=== PATIENT | female | born 1935 | race Caucasian/White ===

== ENCOUNTER 2017-05-09 10:35 | Emergency (ER) | payer MEDICARE, BC ==
[2017-05-09 11:02] VITALS: BP 173/82
--- NOTE | 2017-05-09 11:37 | EDM.PDOC ---
ED HPI GENERAL MEDICAL PROBLEM - General Chief Complaint: ENT Problem Stated Complaint: [facility] Time Seen by Provider: 05/09/17 11:00 Source of Information: Reports: Patient, EMS History Limitations: Reports: No Limitations - History of Present Illness INITIAL COMMENTS - FREE TEXT/NARRATIVE: 81-year-old female who is been struggling with some vertigo and cerumen impaction on the left side. She had an appointment to have her ears cleaned at the clinic this morning but when she woke up she was so dizzy and had pressure in her ear that she called the ambulance to come in. They gave her some Zofran in route she feels much better but still has the pressure. No fevers or chills, no nausea or vomiting, no headache. Onset: Gradual (Has been struggling with symptoms for several weeks) Severity: Mild Associated Symptoms: Reports: Other (Vertigo). Denies: Fever/Chills, Headaches , Loss of Appetite, Weakness - Related Data Allergies Allergy/AdvReac Type Severity Reaction Status Date / Time aluminum hydroxide Allergy Unknown Cannot Verified 05/09/17 10:52 [From Maalox Maximum Remember Strength] amlodipine Allergy Unknown Cannot Verified 05/09/17 10:52 Remember atorvastatin Allergy Unknown Cannot Verified 05/09/17 10:52 Remember azithromycin Allergy Unknown Cannot Verified 05/09/17 10:52 Remember bumetanide Allergy Unknown Cannot Verified 05/09/17 10:52 Remember celecoxib Allergy Unknown Cannot Verified 05/09/17 10:52 Remember cephalexin [Cephalexin] Allergy Unknown Cannot Verified 05/09/17 10:52 Remember chromium Allergy Unknown Cannot Verified 05/09/17 10:52 Remember ciprofloxacin [From Cipro] Allergy Unknown Cannot Verified 05/09/17 10:52 Remember ciprofloxacin HCl Allergy Unknown Cannot Verified 05/09/17 10:52 [From Cipro] Remember codeine Allergy Unknown Cannot Verified 05/09/17 10:52 Remember copper [Copper] Allergy Unknown Cannot Verified 05/09/17 10:52 Remember Corticosteroids Allergy Unknown Cannot Verified 05/09/17 10:52 (Glucocorticoids) Remember dipyridamole Allergy Unknown Cannot Verified 05/09/17 10:52 Remember esomeprazole Allergy Unknown Cannot Verified 05/09/17 10:50 Remember ezetimibe Allergy Unknown Cannot Verified 05/09/17 10:50 Remember fenofibrate nanocrystallized Allergy Unknown Cannot Verified 05/09/17 10:50 [From Tricor] Remember fenofibrate,micronized Allergy Unknown Cannot Verified 05/09/17 10:50 [From Tricor] Remember fexofenadine Allergy Unknown Cannot Verified 05/09/17 10:50 Remember furosemide Allergy Unknown Cannot Verified 05/09/17 10:50 Remember hydrochlorothiazide Allergy Unknown Rash Verified 05/09/17 10:50 lansoprazole [From Prevacid] Allergy Unknown Cannot Verified 05/09/17 10:50 Remember lisinopril Allergy Unknown Cannot Verified 05/09/17 10:50 Remember magnesium hydroxide Allergy Unknown Cannot Verified 05/09/17 10:50 [From Maalox Maximum Remember Strength] neomycin [Neomycin] Allergy Unknown Cannot Verified 05/09/17 10:50 Remember niacin Allergy Unknown Cannot Verified 05/09/17 10:50 Remember nicotine Allergy Unknown Cannot Verified 05/09/17 10:50 Remember omeprazole Allergy Unknown Cannot Verified 05/09/17 10:50 Remember pravastatin Allergy Unknown Cannot Verified 05/09/17 10:50 Remember rosuvastatin calcium Allergy Unknown Cannot Verified 05/09/17 10:50 [From Crestor] Remember simethicone Allergy Unknown Cannot Verified 05/09/17 10:50 [From Maalox Maximum Remember Strength] Sulfa (Sulfonamide Allergy Unknown Cannot Verified 05/09/17 10:50 Antibiotics) Remember tetanus toxoid, adsorbed Allergy Unknown Cannot Verified 05/09/17 10:50 Remember venlafaxine Allergy Unknown Cannot Verified 05/09/17 10:50 Remember carboxymethylcellulose sodium Allergy Cannot Verified 05/09/17 10:50 [From Refresh Tears] Remember cetirizine HCl [From Zyrtec] Allergy Cannot Verified 05/09/17 10:50 Remember colesevelam HCl Allergy Cannot Verified 05/09/17 10:50 [From WelChol] Remember dexamethasone [From TobraDex] Allergy Cannot Verified 05/09/17 10:50 Remember doxycycline Allergy Other Verified 05/09/17 10:50 Influenza Virus Vaccines Allergy Hives Verified 05/09/17 10:50 [id number] Reductase Allergy Cannot Verified 05/09/17 10:50 Inhibitor Remember tobramycin [From TobraDex] Allergy Cannot Verified 05/09/17 10:50 Remember hydromorphone HCl AdvReac Intermediate Nausea and Verified 05/09/17 10:50 [From Dilaudid] Vomiting morphine AdvReac Unknown Nausea and Verified 05/09/17 10:50 Vomiting clindamycin HCl AdvReac Diarrhea Verified 05/09/17 10:50 [From Cleocin] clindamycin palmitate HCl AdvReac Diarrhea Verified 05/09/17 10:50 [From Cleocin] clindamycin phosphate AdvReac Diarrhea Verified 05/09/17 10:50 [From Cleocin] Home Meds: Home Meds Aspirin 81 mg PO DAILY 04/26/13 [History] Clopidogrel Bisulfate [Clopidogrel] 75 mg PO DAILY 04/26/13 [History] Famotidine [Pepcid] 20 mg PO BID 04/26/13 [History] Metoprolol Tartrate [Lopressor] 25 mg PO BID 04/26/13 [History] Nitroglycerin [Nitrostat] 0.4 mg SL ASDIRECTED PRN 04/26/13 [History] Acetaminophen [Tylenol] 325 mg PO Q6HR PRN 10/24/14 [History] Ondansetron HCl [Zofran] 4 mg PO Q8HR PRN 10/24/14 [History] Pnv95/Iron Fum/Folic Acid [ Caplet] 1 each PO DAILY 10/16/15 [History] Meclizine [Antivert] 25 mg PO TID PRN 12/11/15 [History] Cyanocobalamin (Vitamin B-12) [Vitamin B-12] 1,000 mcg PO DAILY 06/28/16 [ History] Metolazone 1.25 mg PO ASDIRECTED PRN 07/25/16 [History] Fluticasone Propionate [Flonase] 2 sprays INH DAILY 12/27/16 [History] tiZANidine [Zanaflex] 4 mg PO BEDTIME PRN 12/27/16 [History] Past Medical History HEENT History: Reports: Cataract, Impaired Vision, Sinusitis Other HEENT History: wear glasses Cardiovascular History: Reports: Blood Clots/VTE/DVT, High Cholesterol, Hypertension, PR, Stents, Other (See Below) Other Cardiovascular History: defib. 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 Musculoskeletal History: Reports: Arthritis, Fracture, Other (See Below) Other Musculoskeletal History: right carpal tunnel Neurological History: Reports: Concussion, CVA, Migraines, TIA Endocrine/Metabolic History: Reports: Obesity/BMI 30+ Hematologic History: Reports: Blood Transfusion(s) - Infectious Disease History Infectious Disease History: Reports: Chicken Pox, Measles, Mumps - Past Surgical History HEENT Surgical History: Reports: Cataract Surgery Cardiovascular Surgical History: Reports: Coronary Artery Stent, Other (See Below) GI Surgical History: Reports: Cholecystectomy, EGD Female Surgical History: Reports: Hysterectomy Social & Family History - Family History Family Medical History: Noncontributory - Tobacco Use Smoking Status *Q: Unknown Ever Smoked Years of Tobacco use: 20 Packs/Tins Daily: 1 Used Tobacco, but Quit: Yes Month Tobacco Last Used: 07/18/2004 Second Hand Smoke Exposure: No - Caffeine Use Caffeine Use: Reports: None - Alcohol Use Days Per Week of Alcohol Use: 0 - Recreational Drug Use Recreational Drug Use: No ED ROS ENT - Review of Systems Review Of Systems: See Below Constitutional: Denies: Fever, Chills HEENT: Reports: Other (Pressure in her left ear, decreased hearing and vertigo) Respiratory: Denies: Shortness of Breath Cardiovascular: Denies: Chest Pain GI/Abdominal: Denies: Abdominal Pain Neurological: Reports: No Symptoms ED EXAM, ENT - Physical Exam Exam: See Below Exam Limited By: No Limitations General Appearance: Alert, No Apparent Distress Eye Exam: Bilateral Eye: Other (EOMs intact, no nystagmus) Ears: Other (The left ear is completely impacted with cerumen, the right canal is clear with a normal eardrum) Head: Atraumatic Respiratory/Chest: No Respiratory Distress, Lungs Clear Cardiovascular: Regular Rate, Rhythm Neurological: Alert, Oriented Skin: Warm, Dry Course - Vital Signs Last Recorded V/S: Last Vital Signs Temp 96.1 F 05/09/17 10:52 Pulse 61 05/09/17 10:52 Resp 15 05/09/17 10:52 BP 173/82 H 05/09/17 10:52 Pulse Ox 96 05/09/17 10:52 - Re-Assessments/Exams Free Text/Narrative Re-Assessment/Exam: 05/09/17 11:36 An attempt was made to clear the cerumen with irrigation without success. F plastic curette was then used to remove the cerumen almost in its entirety. The underlying tympanic membrane was normal, when the ear canal was cleared she felt much better. Departure - Departure Time of Disposition: 11:51 Disposition: Home, Self-Care 01 Condition: Good Clinical Impression: Impacted cerumen of left ear, Vertigo - Discharge Information Instructions: Earwax Buildup Referrals: PCP,None [Primary Care Provider] - Forms: ED Department Discharge Care Plan Goals: Increase activity as tolerated and recheck in 2-3 days if not improved satisfactorily. Return anytime sooner if worsening or concerns.
== END 2017-05-09 11:51 | disposition home or self-care (01) ==
LOC: JP.ED 10:35
DX: H61.22 Impacted cerumen, left ear (principal); R42 Dizziness and giddiness; Z88.8 Allergy status to other drugs, medicaments and biological substances; Z88.2 Allergy status to sulfonamides; Z79.82 Long term (current) use of aspirin
CPT/HCPCS: 69210; 99283-25; 99284-25

== ENCOUNTER 2017-05-10 11:15 | Emergency (ER) | payer MEDICARE, BC ==
--- NOTE | 2017-05-10 12:13 | EDM.PDOC ---
ED HPI GENERAL MEDICAL PROBLEM - General Chief Complaint: Headache Stated Complaint: MIGRAINE Time Seen by Provider: 05/10/17 12:13 Source of Information: Reports: Patient History Limitations: Reports: No Limitations - History of Present Illness INITIAL COMMENTS - FREE TEXT/NARRATIVE: pt was here yesterday and had her left ear irrigated because of a wax impaction . Today about 10 am she developed a rt sided headache. She saw a halo like she usually does with her migraine and she became very lite sensitive. She has a headacche that is at the level of 10. She is nauseated but has not vomited. She does have a previous history of a stroke and 2 tias. Onset: Today, Other ( 10 am. ) Duration: Hour(s): Location: Reports: Head Associated Symptoms: Reports: Headaches, Other ( nausea. ) Right Parietal Headache Pain Score (Numeric/FACES): 10 - Related Data Allergies Allergy/AdvReac Type Severity Reaction Status Date / Time aluminum hydroxide Allergy Unknown Cannot Verified 05/09/17 10:52 [From Maalox Maximum Remember Strength] amlodipine Allergy Unknown Cannot Verified 05/09/17 10:52 Remember atorvastatin Allergy Unknown Cannot Verified 05/09/17 10:52 Remember azithromycin Allergy Unknown Cannot Verified 05/09/17 10:52 Remember bumetanide Allergy Unknown Cannot Verified 05/09/17 10:52 Remember celecoxib Allergy Unknown Cannot Verified 05/09/17 10:52 Remember cephalexin [Cephalexin] Allergy Unknown Cannot Verified 05/09/17 10:52 Remember chromium Allergy Unknown Cannot Verified 05/09/17 10:52 Remember ciprofloxacin [From Cipro] Allergy Unknown Cannot Verified 05/09/17 10:52 Remember ciprofloxacin HCl Allergy Unknown Cannot Verified 05/09/17 10:52 [From Cipro] Remember codeine Allergy Unknown Cannot Verified 05/09/17 10:52 Remember copper [Copper] Allergy Unknown Cannot Verified 05/09/17 10:52 Remember Corticosteroids Allergy Unknown Cannot Verified 05/09/17 10:52 (Glucocorticoids) Remember dipyridamole Allergy Unknown Cannot Verified 05/09/17 10:52 Remember esomeprazole Allergy Unknown Cannot Verified 05/09/17 10:50 Remember ezetimibe Allergy Unknown Cannot Verified 05/09/17 10:50 Remember fenofibrate nanocrystallized Allergy Unknown Cannot Verified 05/09/17 10:50 [From Tricor] Remember fenofibrate,micronized Allergy Unknown Cannot Verified 05/09/17 10:50 [From Tricor] Remember fexofenadine Allergy Unknown Cannot Verified 05/09/17 10:50 Remember furosemide Allergy Unknown Cannot Verified 05/09/17 10:50 Remember hydrochlorothiazide Allergy Unknown Rash Verified 05/09/17 10:50 lansoprazole [From Prevacid] Allergy Unknown Cannot Verified 05/09/17 10:50 Remember lisinopril Allergy Unknown Cannot Verified 05/09/17 10:50 Remember magnesium hydroxide Allergy Unknown Cannot Verified 05/09/17 10:50 [From Maalox Maximum Remember Strength] neomycin [Neomycin] Allergy Unknown Cannot Verified 05/09/17 10:50 Remember niacin Allergy Unknown Cannot Verified 05/09/17 10:50 Remember nicotine Allergy Unknown Cannot Verified 05/09/17 10:50 Remember omeprazole Allergy Unknown Cannot Verified 05/09/17 10:50 Remember pravastatin Allergy Unknown Cannot Verified 05/09/17 10:50 Remember rosuvastatin calcium Allergy Unknown Cannot Verified 05/09/17 10:50 [From Crestor] Remember simethicone Allergy Unknown Cannot Verified 05/09/17 10:50 [From Maalox Maximum Remember Strength] Sulfa (Sulfonamide Allergy Unknown Cannot Verified 05/09/17 10:50 Antibiotics) Remember tetanus toxoid, adsorbed Allergy Unknown Cannot Verified 05/09/17 10:50 Remember venlafaxine Allergy Unknown Cannot Verified 05/09/17 10:50 Remember carboxymethylcellulose sodium Allergy Cannot Verified 05/09/17 10:50 [From Refresh Tears] Remember cetirizine HCl [From Zyrtec] Allergy Cannot Verified 05/09/17 10:50 Remember colesevelam HCl Allergy Cannot Verified 05/09/17 10:50 [From WelChol] Remember dexamethasone [From TobraDex] Allergy Cannot Verified 05/09/17 10:50 Remember doxycycline Allergy Other Verified 05/09/17 10:50 Influenza Virus Vaccines Allergy Hives Verified 05/09/17 10:50 Amyofrb-Tbb-Ggo Reductase Allergy Cannot Verified 05/09/17 10:50 Inhibitor Remember tobramycin [From TobraDex] Allergy Cannot Verified 05/09/17 10:50 Remember hydromorphone HCl AdvReac Intermediate Nausea and Verified 05/09/17 10:50 [From Dilaudid] Vomiting morphine AdvReac Unknown Nausea and Verified 05/09/17 10:50 Vomiting clindamycin HCl AdvReac Diarrhea Verified 05/09/17 10:50 [From Cleocin] clindamycin palmitate HCl AdvReac Diarrhea Verified 05/09/17 10:50 [From Cleocin] clindamycin phosphate AdvReac Diarrhea Verified 05/09/17 10:50 [From Cleocin] Home Meds: Home Meds Aspirin 81 mg PO DAILY 04/26/13 [History] Clopidogrel Bisulfate [Clopidogrel] 75 mg PO DAILY 04/26/13 [History] Famotidine [Pepcid] 20 mg PO BID 04/26/13 [History] Metoprolol Tartrate [Lopressor] 25 mg PO BID 04/26/13 [History] Nitroglycerin [Nitrostat] 0.4 mg SL ASDIRECTED PRN 04/26/13 [History] Acetaminophen [Tylenol] 325 mg PO Q6HR PRN 10/24/14 [History] Ondansetron HCl [Zofran] 4 mg PO Q8HR PRN 10/24/14 [History] Pnv95/Iron Fum/Folic Acid [ Caplet] 1 each PO DAILY 10/16/15 [History] Meclizine [Antivert] 25 mg PO TID PRN 12/11/15 [History] Cyanocobalamin (Vitamin B-12) [Vitamin B-12] 1,000 mcg PO DAILY 06/28/16 [ History] Metolazone 1.25 mg PO ASDIRECTED PRN 07/25/16 [History] Fluticasone Propionate [Flonase] 2 sprays INH DAILY 12/27/16 [History] tiZANidine [Zanaflex] 4 mg PO BEDTIME PRN 12/27/16 [History] Past Medical History HEENT History: Reports: Cataract, Impaired Vision, Sinusitis Other HEENT History: wear glasses Cardiovascular History: Reports: Blood Clots/VTE/DVT, High Cholesterol, Hypertension, [place], Stents, Other (See Below) Other Cardiovascular History: defib. 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: , Prolapsed Uterus Musculoskeletal History: Reports: Arthritis, Fracture, Other (See Below) Other Musculoskeletal History: right carpal tunnel Neurological History: Reports: Concussion, CVA, Migraines, TIA Endocrine/Metabolic History: Reports: Obesity/BMI 30+ Hematologic History: Reports: Blood Transfusion(s) - Infectious Disease History Infectious Disease History: Reports: Chicken Pox, Measles, Mumps - Past Surgical History HEENT Surgical History: Reports: Cataract Surgery Cardiovascular Surgical History: Reports: Coronary Artery Stent, Other (See Below) GI Surgical History: Reports: Cholecystectomy, EGD Female Surgical History: Reports: Hysterectomy Social & Family History - Family History Family Medical History: Noncontributory - Tobacco Use Smoking Status *Q: Former Smoker Years of Tobacco use: 20 Packs/Tins Daily: 1 Used Tobacco, but Quit: Yes Month Tobacco Last Used: 2004 Second Hand Smoke Exposure: No - Caffeine Use Caffeine Use: Reports: Coffee, Soda - Alcohol Use Days Per Week of Alcohol Use: 0 - Recreational Drug Use Recreational Drug Use: No ED ROS GENERAL - Review of Systems Review Of Systems: See Below Constitutional: Reports: No Symptoms HEENT: Reports: No Symptoms Respiratory: Reports: No Symptoms Cardiovascular: Reports: No Symptoms Endocrine: Reports: No Symptoms GI/Abdominal: Reports: Nausea : Reports: No Symptoms Musculoskeletal: Reports: Other ( muscles feel tight on the rt facial area. ) Skin: Reports: No Symptoms Neurological: Reports: Other ( rt sided headache and nausea. ) Psychiatric: Reports: Anxiety - Physical Exam Exam: See Below Text/Narrative:: pt arrived with a headache on the r rt side. Exam Limited By: No Limitations General Appearance: Alert, Anxious, Moderate Distress, Other (pupils equal and reactive) Ears: Normal TMs Nose: Normal Inspection Throat/Mouth: Normal Inspection Head Exam: Atraumatic, Other ( severe pain on the rt side of her head. ) Neck: Normal Inspection Respiratory/Chest: No Respiratory Distress Cardiovascular: Regular Rate, Rhythm GI/Abdominal: Soft, Non-Tender, No Abnormal Bruit (Female) Exam: Deferred Rectal (Female) Exam: Deferred Back Exam: CVA Tenderness (L) Extremities: Normal Inspection Psychiatric: Anxious Course - Vital Signs Last Recorded V/S: Last Vital Signs Temp 35.5 C 05/10/17 11:40 Pulse 67 05/10/17 13:31 Resp 16 05/10/17 11:40 BP 189/96 H 05/10/17 13:31 Pulse Ox 95 10/24/17 11:40 - Orders/Labs/Meds Orders: Active Orders 24 hr Category Date Time Status Sodium Chloride 0.9% [Normal Saline] 1,000 ml Med 05/10/17 12:15 Active IV ASDIRECTED Medication Orders Sodium Chloride (Normal Saline) 1,000 mls @ 400 mls/hr IV ASDIRECTED GUILLE Last Admin: 05/10/17 13:27 Dose: 400 mls/hr Labs: Laboratory Tests 05/10/17 05/10/17 05/10/17 Range/Units 12:19 12:19 12:36 WBC 5.2 (4.5-11.0) K/uL RBC 4.46 (3.30-5.50) M/uL Hgb 13.4 (12.0-15.0) g/dL Hct 41.6 (36.0-48.0) % MCV 93 (80-98) fL MCH 30 (27-31) pg MCHC 32 (32-36) % Plt Count 265 (150-400) K/uL Neut % (Auto) 67 H (36-66) % Lymph % (Auto) 19 L (24-44) % [place] % (Auto) 13 H (2-6) % Eos % (Auto) 2 (2-4) % Baso % (Auto) 0 (0-1) % Sodium 141 (140-148) mmol/L Potassium 4.1 (3.6-5.2) mmol/L Chloride 108 (100-108) mmol/L Carbon Dioxide 28 (21-32) mmol/L Anion Gap 5.4 (5.0-14.0) mmol/L BUN 14 (7-18) mg/dL Creatinine 0.8 (0.6-1.0) mg/dL Est Cr Clr Drug Dosing 42.14 mL/min Estimated GFR (MDRD) > 60 (>60) Glucose 99 (74-106) mg/dL Calcium 9.1 (8.5-10.1) mg/dL Total Bilirubin 0.5 (0.2-1.0) mg/dL AST 21 (15-37) U/L ALT 18 (12-78) U/L Alkaline Phosphatase 81 (46-116) U/L Total Protein 6.2 L (6.4-8.2) g/dL Albumin 3.0 L (3.4-5.0) g/dL Globulin 3.2 (2.3-3.5) g/dL Albumin/Globulin Ratio 0.9 L (1.2-2.2) Urine Color Yellow Urine Appearance Clear Urine pH 6.0 (4.5-8.0) Ur Specific [place] 1.015 (1.008-1.030) Urine Protein Negative (NEGATIVE) mg/dL Urine Glucose (UA) Normal (NEGATIVE) mg/dL Urine Ketones Negative (NEGATIVE) mg/dL Urine Occult Blood Negative (NEGATIVE) Urine Nitrite Negative (NEGATIVE) Urine Bilirubin Negative (NEGATIVE) Urine Urobilinogen 1 (NORMAL) mg/dL Ur Leukocyte Esterase Negative (NEGATIVE) Urine RBC 0-5 (0-5) Urine WBC 0-5 (0-5) Ur Epithelial Cells Few Amorphous Sediment Not seen Urine Bacteria Few Urine Mucus Few Meds: Medications Generic Name Dose Route Start Last Admin Trade Name Freq PRN Reason Stop Dose Admin Sodium Chloride 1,000 mls @ 400 mls/hr 05/10/17 12:15 05/10/17 13:27 Normal Saline IV 400 mls/hr ASDIRECTED GUILLE Administration Discontinued Medications Generic Name Dose Route Start Last Admin Trade Name Freq PRN Reason Stop Dose Admin Acetaminophen 650 mg 05/10/17 13:58 Tylenol PO 05/10/17 13:59 NOW ONE Diphenhydramine HCl 25 mg 05/10/17 12:17 05/10/17 13:19 Benadryl IVPUSH 05/10/17 12:18 25 mg ONETIME ONE Administration Ketorolac Tromethamine 30 mg 05/10/17 12:15 05/10/17 13:21 Toradol IVPUSH 05/10/17 12:16 30 mg ONETIME ONE Administration Ondansetron HCl 4 mg 05/10/17 12:17 05/10/17 13:20 Zofran IVPUSH 05/10/17 12:18 4 mg ONETIME ONE Administration - Re-Assessments/Exams Free Text/Narrative Re-Assessment/Exam: 05/10/17 14:09 pt had an iv started, torodol 30mg iv, zoforan 4mg and benadryl 25 mg. She had a cat scan of the head which was neg for acute findings. Her lab work was normal. She was also given tylenol 650. Departure - Departure Time of Disposition: 14:11 Disposition: Home, Self-Care 01 Condition: Fair Clinical Impression: Migraine headache - Discharge Information Referrals: Edvin Lay MD [Primary Care Provider] - Forms: ED Department Discharge Care Plan Goals: push fluids, rest, tylenol for pain. - My Orders Last 24 Hours: My Active Orders 05/10/17 12:15 Sodium Chloride 0.9% [Normal Saline] 1,000 ml IV ASDIRECTED - Assessment/Plan Last 24 Hours: My Active Orders 05/10/17 12:15 Sodium Chloride 0.9% [Normal Saline] 1,000 ml IV ASDIRECTED
[2017-05-10] MEDS ORDERED: Ketorolac 30 MG/ML SDV IVPUSH ONE (12:15)
[2017-05-10] MEDS ORDERED: Sodium Chloride 0.9% 1,000 ML IV SCH (12:15)
[2017-05-10] MEDS ORDERED: Ondansetron 4 MG/2 ML SDV IVPUSH ONE (12:17)
[2017-05-10] MEDS ORDERED: diphenhydrAMINE 50 MG/ML SDV IVPUSH ONE (12:17)
--- NOTE | 2017-05-10 13:06 | CT ---
Head wo Cont INDICATION: Right-sided headache COMPARISON: CT 11/06/2014. Total DLP 681. FINDINGS: No acute intracranial hemorrhage, mass, or edema. Generalized cerebral and cerebellar volum e loss. Tiny benign lipomas adjacent to the falx are of no clinical significance. Remainder unremarkable. IMPRESSION: No acute intracranial abnormality.
[2017-05-10 13:32] VITALS: BP 189/96
[2017-05-10] MEDS ORDERED: Acetaminophen 325 MG Tab PO ONE (13:58)
== END 2017-05-10 16:10 | disposition home or self-care (01) ==
LOC: JP.ED 11:15
DX: G43.909 Migraine, unspecified, not intractable, without status migrainosus (principal); I10 Essential (primary) hypertension; E78.00 Pure hypercholesterolemia, unspecified; Z87.891 Personal history of nicotine dependence; Z79.899 Other long term (current) drug therapy; Z79.82 Long term (current) use of aspirin; Z88.8 Allergy status to other drugs, medicaments and biological substances; Z88.1 Allergy status to other antibiotic agents; Z88.6 Allergy status to analgesic agent; Z88.5 Allergy status to narcotic agent
CPT/HCPCS: 36415; 70450; 80053; 81001; 85025; 96361; 96374; 96375; 99284; A9270; J1200; J1885; J2405; J7040; 99283

== ENCOUNTER 2017-08-04 08:44 | Emergency (ER) | payer MEDICARE, BC ==
--- NOTE | 2017-08-04 09:57 | CR ---
Chest 1V Frontal FINDINGS: There is a cardiac pacemaker in place with 2 intact leads. The heart and vascular structure s are normal in appearance. No infiltrates or effusions are demonstrated. There is mild right basilar scarring. The skeletal structures are unremarkable. IMPRESSION: 1. No acute findings.
[2017-08-04 10:03] VITALS: BP 157/89
--- NOTE | 2017-08-04 10:05 | EDM.PDOC ---
ED HPI GENERAL MEDICAL PROBLEM - General Chief Complaint: Chest Pain Stated Complaint: [facility] Time Seen by Provider: 08/04/17 09:20 Source of Information: Reports: Patient, EMS History Limitations: Reports: No Limitations - History of Present Illness INITIAL COMMENTS - FREE TEXT/NARRATIVE: 81-year-old female presents by ambulance with chest pain for the last 24 hours. She had a cough with some mild sputum production 3 or 4 days ago, no fever or chills but yesterday started developing some moderate shortness of breath especially with activity and some upper localized chest pain. The cough seems to have improved. She did not use any of her nitroglycerin but took some extra aspirin this morning. She then called the ambulance when the pain wasn't improving. She has no nausea or vomiting, diaphoresis, radiation of the pain or trauma. Onset: Sudden (Pain started rather suddenly 24 hours ago) Location: Reports: Chest (Upper substernal chest discomfort) Severity: Moderate Chest Pain Score (Numeric/FACES): 10 - Related Data Allergies Allergy/AdvReac Type Severity Reaction Status Date / Time aluminum hydroxide Allergy Unknown Cannot Verified 05/09/17 10:52 [From Maalox Maximum Remember Strength] amlodipine Allergy Unknown Cannot Verified 05/09/17 10:52 Remember atorvastatin Allergy Unknown Cannot Verified 05/09/17 10:52 Remember azithromycin Allergy Unknown Cannot Verified 05/09/17 10:52 Remember bumetanide Allergy Unknown Cannot Verified 05/09/17 10:52 Remember celecoxib Allergy Unknown Cannot Verified 05/09/17 10:52 Remember cephalexin [Cephalexin] Allergy Unknown Cannot Verified 05/09/17 10:52 Remember chromium Allergy Unknown Cannot Verified 05/09/17 10:52 Remember ciprofloxacin [From Cipro] Allergy Unknown Cannot Verified 05/09/17 10:52 Remember ciprofloxacin HCl Allergy Unknown Cannot Verified 05/09/17 10:52 [From Cipro] Remember codeine Allergy Unknown Cannot Verified 05/09/17 10:52 Remember copper [Copper] Allergy Unknown Cannot Verified 05/09/17 10:52 Remember Corticosteroids Allergy Unknown Cannot Verified 05/09/17 10:52 (Glucocorticoids) Remember dipyridamole Allergy Unknown Cannot Verified 05/09/17 10:52 Remember esomeprazole Allergy Unknown Cannot Verified 05/09/17 10:50 Remember ezetimibe Allergy Unknown Cannot Verified 05/09/17 10:50 Remember fenofibrate nanocrystallized Allergy Unknown Cannot Verified 05/09/17 10:50 [From Tricor] Remember fenofibrate,micronized Allergy Unknown Cannot Verified 05/09/17 10:50 [From Tricor] Remember fexofenadine Allergy Unknown Cannot Verified 05/09/17 10:50 Remember furosemide Allergy Unknown Cannot Verified 05/09/17 10:50 Remember hydrochlorothiazide Allergy Unknown Rash Verified 05/09/17 10:50 lansoprazole [From Prevacid] Allergy Unknown Cannot Verified 05/09/17 10:50 Remember lisinopril Allergy Unknown Cannot Verified 05/09/17 10:50 Remember magnesium hydroxide Allergy Unknown Cannot Verified 05/09/17 10:50 [From Maalox Maximum Remember Strength] neomycin [Neomycin] Allergy Unknown Cannot Verified 05/09/17 10:50 Remember niacin Allergy Unknown Cannot Verified 05/09/17 10:50 Remember nicotine Allergy Unknown Cannot Verified 05/09/17 10:50 Remember omeprazole Allergy Unknown Cannot Verified 05/09/17 10:50 Remember pravastatin Allergy Unknown Cannot Verified 05/09/17 10:50 Remember rosuvastatin calcium Allergy Unknown Cannot Verified 05/09/17 10:50 [From Crestor] Remember simethicone Allergy Unknown Cannot Verified 05/09/17 10:50 [From Maalox Maximum Remember Strength] Sulfa (Sulfonamide Allergy Unknown Cannot Verified 05/09/17 10:50 Antibiotics) Remember tetanus toxoid, adsorbed Allergy Unknown Cannot Verified 05/09/17 10:50 Remember venlafaxine Allergy Unknown Cannot Verified 05/09/17 10:50 Remember carboxymethylcellulose sodium Allergy Cannot Verified 05/09/17 10:50 [From Refresh Tears] Remember cetirizine HCl [From Zyrtec] Allergy Cannot Verified 05/09/17 10:50 Remember colesevelam HCl Allergy Cannot Verified 05/09/17 10:50 [From WelChol] Remember dexamethasone [From TobraDex] Allergy Cannot Verified 05/09/17 10:50 Remember doxycycline Allergy Other Verified 05/09/17 10:50 Influenza Virus Vaccines Allergy Hives Verified 05/09/17 10:50 [id number]-Tqh Reductase Allergy Cannot Verified 05/09/17 10:50 Inhibitor Remember tobramycin [From TobraDex] Allergy Cannot Verified 05/09/17 10:50 Remember hydromorphone HCl AdvReac Intermediate Nausea and Verified 05/09/17 10:50 [From Dilaudid] Vomiting morphine AdvReac Unknown Nausea and Verified 05/09/17 10:50 Vomiting clindamycin HCl AdvReac Diarrhea Verified 05/09/17 10:50 [From Cleocin] clindamycin palmitate HCl AdvReac Diarrhea Verified 05/09/17 10:50 [From Cleocin] clindamycin phosphate AdvReac Diarrhea Verified 05/09/17 10:50 [From Cleocin] Home Meds: Home Meds Aspirin 81 mg PO DAILY 04/26/13 [History] Clopidogrel Bisulfate [Clopidogrel] 75 mg PO DAILY 04/26/13 [History] Famotidine [Pepcid] 20 mg PO BID 04/26/13 [History] Metoprolol Tartrate [Lopressor] 25 mg PO BID 04/26/13 [History] Nitroglycerin [Nitrostat] 0.4 mg SL ASDIRECTED PRN 04/26/13 [History] Acetaminophen [Tylenol] 325 mg PO Q6HR PRN 10/24/14 [History] Ondansetron HCl [Zofran] 4 mg PO Q8HR PRN 10/24/14 [History] Pnv95/Iron Fum/Folic Acid [ Caplet] 1 each PO DAILY 10/16/15 [History] Meclizine [Antivert] 25 mg PO TID PRN 12/11/15 [History] Cyanocobalamin (Vitamin B-12) [Vitamin B-12] 1,000 mcg PO DAILY 06/28/16 [ History] Metolazone 1.25 mg PO ASDIRECTED PRN 07/25/16 [History] Fluticasone Propionate [Flonase] 2 sprays INH DAILY 12/27/16 [History] tiZANidine [Zanaflex] 4 mg PO BEDTIME PRN 12/27/16 [History] Past Medical History HEENT History: Reports: Cataract, Impaired Vision, Sinusitis Other HEENT History: wear glasses Cardiovascular History: Reports: Blood Clots/VTE/DVT, High Cholesterol, Hypertension, [place], Stents, Other (See Below) Other Cardiovascular History: defib. 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: , Prolapsed Uterus Musculoskeletal History: Reports: Arthritis, Fracture, Other (See Below) Other Musculoskeletal History: right carpal tunnel Neurological History: Reports: Concussion, CVA, Migraines, TIA Endocrine/Metabolic History: Reports: Obesity/BMI 30+ Hematologic History: Reports: Blood Transfusion(s) - Infectious Disease History Infectious Disease History: Reports: Chicken Pox, Measles, Mumps - Past Surgical History HEENT Surgical History: Reports: Cataract Surgery Cardiovascular Surgical History: Reports: Coronary Artery Stent, Other (See Below) GI Surgical History: Reports: Cholecystectomy, EGD Female Surgical History: Reports: Hysterectomy Social & Family History - Family History Family Medical History: Noncontributory - Tobacco Use Smoking Status *Q: Never Smoker Years of Tobacco use: 20 Packs/Tins Daily: 1 Used Tobacco, but Quit: Yes Month Tobacco Last Used: 2004 Second Hand Smoke Exposure: No - Caffeine Use Caffeine Use: Reports: Coffee, Soda - Alcohol Use Days Per Week of Alcohol Use: 0 - Recreational Drug Use Recreational Drug Use: No ED ROS GENERAL - Review of Systems Review Of Systems: See Below Constitutional: Denies: Fever, Chills HEENT: Denies: Throat Pain Respiratory: Reports: Shortness of Breath, Cough, Sputum Cardiovascular: Reports: Chest Pain, Dyspnea on Exertion. Denies: Palpitations GI/Abdominal: Reports: No Symptoms : Reports: No Symptoms Skin: Reports: No Symptoms Neurological: Denies: Headache ED EXAM, GENERAL - Physical Exam Exam: See Below Exam Limited By: No Limitations General Appearance: Alert, No Apparent Distress Eye Exam: Bilateral Eye: Normal Inspection Neck: Normal Inspection, Supple Respiratory/Chest: No Respiratory Distress, Lungs Clear, Chest Non-Tender Cardiovascular: Regular Rate, Rhythm GI/Abdominal: Soft, Non-Tender Extremities: Normal Inspection. 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, very consistent with past EKGs Course - Vital Signs Last Recorded V/S: Last Vital Signs Temp 95.8 F 08/04/17 09:07 Pulse 61 08/04/17 09:45 Resp 15 08/04/17 09:45 BP 157/89 H 01/18/18 09:45 Pulse Ox 95 08/04/17 09:45 - Orders/Labs/Meds Orders: Active Orders 24 hr Category Date Time Status EKG Documentation Completion [RC] ASDIRECTED Care 08/04/17 09:23 Active EKG 12 Lead [EK] Routine Ther 08/04/17 09:23 Ordered Labs: Laboratory Tests 08/04/17 08/04/17 Range/Units 09:00 09:00 WBC 4.8 (4.5-11.0) K/uL RBC 4.67 (3.30-5.50) M/uL Hgb 13.9 (12.0-15.0) g/dL Hct 42.2 (36.0-48.0) % MCV 90 (80-98) fL MCH 30 (27-31) pg MCHC 33 (32-36) % Plt Count 286 (150-400) K/uL Neut % (Auto) 61 (36-66) % Lymph % (Auto) 22 L (24-44) % [place] % (Auto) 13 H (2-6) % Eos % (Auto) 3 (2-4) % Baso % (Auto) 0 (0-1) % Sodium 144 (140-148) mmol/L Potassium 4.1 (3.6-5.2) mmol/L Chloride 109 H (100-108) mmol/L Carbon Dioxide 26 (21-32) mmol/L Anion Gap 13.1 (5.0-14.0) mmol/L BUN 20 H (7-18) mg/dL Creatinine 0.7 (0.6-1.0) mg/dL Est Cr Clr Drug Dosing 48.16 mL/min Estimated GFR (MDRD) > 60 (>60) Glucose 99 (74-106) mg/dL Calcium 8.9 (8.5-10.1) mg/dL Troponin I < 0.017 (0.000-0.056) ng/mL Meds: Medications Discontinued Medications Generic Name Dose Route Start Last Admin Trade Name Freq PRN Reason Stop Dose Admin Azithromycin 500 mg 08/04/17 10:20 08/04/17 10:24 Zithromax PO 08/04/17 10:21 500 mg ONETIME ONE Administration - Re-Assessments/Exams Free Text/Narrative Re-Assessment/Exam: 08/04/17 10:03 EKG was reassuring. Patient looked entirely comfortable despite her continued pain complaint. She presented very similarly to her many chest pain visits in the past. Her O2 saturations were 98-99% on room air, respiratory rate normal, blood pressure normal, and research nutritionist normal. She was afebrile. CBC and BMP were troponin were drawn, troponin was 0 and the rest of the labs were normal. A 1 view chest x-ray was completely normal. I think this patient may have a small amount of bronchitis and pleurisy that is making her anxious and exacerbating the chest discomfort. She agreed to trying a course of Zithromax and giving it just a few days, and will return if worsening. Departure - Departure Time of Disposition: 10:36 Disposition: Home, Self-Care 01 Condition: Good Clinical Impression: Bronchitis, Pleurisy - Discharge Information Instructions: Nonspecific Chest Pain, [id number] Referrals: PCP,None [Primary Care Provider] - Forms: ED Department Discharge Care Plan Goals: Take antibiotic as prescribed, and extra dose of aspirin 2 or 3 times a day may be beneficial. Recheck in 2-3 days if not improving satisfactorily or return sooner if worsening. - My Orders Last 24 Hours: My Active Orders 08/04/17 09:23 EKG Documentation Completion [RC] ASDIRECTED EKG 12 Lead [EK] Routine - Assessment/Plan Last 24 Hours: My Active Orders 08/04/17 09:23 EKG Documentation Completion [RC] ASDIRECTED EKG 12 Lead [EK] Routine
[2017-08-04] MEDS ORDERED: Azithromycin 250 MG Tab PO ONE (10:20)
== END 2017-08-04 10:36 | disposition home or self-care (01) ==
LOC: JP.ED 08:44
DX: J40 Bronchitis, not specified as acute or chronic (principal); R09.1 Pleurisy; Z88.8 Allergy status to other drugs, medicaments and biological substances; Z88.1 Allergy status to other antibiotic agents; Z91.09 Other allergy status, other than to drugs and biological substances; Z88.2 Allergy status to sulfonamides; Z88.5 Allergy status to narcotic agent; Z88.7 Allergy status to serum and vaccine; Z79.82 Long term (current) use of aspirin; Z79.899 Other long term (current) drug therapy
CPT/HCPCS: 36415; 71045; 80048; 84484; 85025; 93005; 99285; A9270; 93010; 99284

== ENCOUNTER 2017-09-29 15:42 | Emergency (ER) | payer MEDICARE, BC ==
[2017-09-29] MEDS ORDERED: Meclizine 25 MG Tab PO ONE (16:44)
--- NOTE | 2017-09-29 16:49 | EDM.PDOC ---
ED HPI GENERAL MEDICAL PROBLEM - General Chief Complaint: Respiratory Problem Stated Complaint: ILLNESS Time Seen by Provider: 09/29/17 16:24 Source of Information: Reports: Patient, RN Notes Reviewed History Limitations: Reports: No Limitations - History of Present Illness INITIAL COMMENTS - FREE TEXT/NARRATIVE: 82-year-old female presents emergency department day complaint of dizziness and headache, she has had dizziness and CVA in the past this particular event started at noon today or approximately 5 hours prior complained of difficulty hearing with dizziness, this has progressed and now over the last hour she's developed a headache predominantly on the left side posterior aspect - Related Data Allergies Allergy/AdvReac Type Severity Reaction Status Date / Time aluminum hydroxide Allergy Unknown Cannot Verified 05/09/17 10:52 [From Maalox Maximum Remember Strength] amlodipine Allergy Unknown Cannot Verified 05/09/17 10:52 Remember atorvastatin Allergy Unknown Cannot Verified 05/09/17 10:52 Remember azithromycin Allergy Unknown Cannot Verified 05/09/17 10:52 Remember bumetanide Allergy Unknown Cannot Verified 05/09/17 10:52 Remember celecoxib Allergy Unknown Cannot Verified 05/09/17 10:52 Remember cephalexin [Cephalexin] Allergy Unknown Cannot Verified 05/09/17 10:52 Remember chromium Allergy Unknown Cannot Verified 05/09/17 10:52 Remember ciprofloxacin [From Cipro] Allergy Unknown Cannot Verified 05/09/17 10:52 Remember ciprofloxacin HCl Allergy Unknown Cannot Verified 05/09/17 10:52 [From Cipro] Remember codeine Allergy Unknown Cannot Verified 05/09/17 10:52 Remember copper [Copper] Allergy Unknown Cannot Verified 05/09/17 10:52 Remember Corticosteroids Allergy Unknown Cannot Verified 05/09/17 10:52 (Glucocorticoids) Remember dipyridamole Allergy Unknown Cannot Verified 05/09/17 10:52 Remember esomeprazole Allergy Unknown Cannot Verified 05/09/17 10:50 Remember ezetimibe Allergy Unknown Cannot Verified 05/09/17 10:50 Remember fenofibrate nanocrystallized Allergy Unknown Cannot Verified 05/09/17 10:50 [From Tricor] Remember fenofibrate,micronized Allergy Unknown Cannot Verified 05/09/17 10:50 [From Tricor] Remember fexofenadine Allergy Unknown Cannot Verified 05/09/17 10:50 Remember furosemide Allergy Unknown Cannot Verified 05/09/17 10:50 Remember hydrochlorothiazide Allergy Unknown Rash Verified 05/09/17 10:50 lansoprazole [From Prevacid] Allergy Unknown Cannot Verified 05/09/17 10:50 Remember lisinopril Allergy Unknown Cannot Verified 05/09/17 10:50 Remember magnesium hydroxide Allergy Unknown Cannot Verified 05/09/17 10:50 [From Maalox Maximum Remember Strength] neomycin [Neomycin] Allergy Unknown Cannot Verified 05/09/17 10:50 Remember niacin Allergy Unknown Cannot Verified 05/09/17 10:50 Remember nicotine Allergy Unknown Cannot Verified 05/09/17 10:50 Remember omeprazole Allergy Unknown Cannot Verified 05/09/17 10:50 Remember pravastatin Allergy Unknown Cannot Verified 05/09/17 10:50 Remember rosuvastatin calcium Allergy Unknown Cannot Verified 05/09/17 10:50 [From Crestor] Remember simethicone Allergy Unknown Cannot Verified 05/09/17 10:50 [From Maalox Maximum Remember Strength] Sulfa (Sulfonamide Allergy Unknown Cannot Verified 05/09/17 10:50 Antibiotics) Remember tetanus toxoid, adsorbed Allergy Unknown Cannot Verified 05/09/17 10:50 Remember venlafaxine Allergy Unknown Cannot Verified 05/09/17 10:50 Remember amoxicillin [From Augmentin] Allergy Rash Verified 09/29/17 16:03 carboxymethylcellulose sodium Allergy Cannot Verified 05/09/17 10:50 [From Refresh Tears] Remember cetirizine HCl [From Zyrtec] Allergy Cannot Verified 05/09/17 10:50 Remember clavulanic acid Allergy Rash Verified 09/29/17 16:03 [From Augmentin] colesevelam HCl Allergy Cannot Verified 05/09/17 10:50 [From WelChol] Remember dexamethasone [From TobraDex] Allergy Cannot Verified 05/09/17 10:50 Remember doxycycline Allergy Other Verified 05/09/17 10:50 Influenza Virus Vaccines Allergy Hives Verified 05/09/17 10:50 [id number] Reductase Allergy Cannot Verified 05/09/17 10:50 Inhibitor Remember tobramycin [From TobraDex] Allergy Cannot Verified 05/09/17 10:50 Remember hydromorphone HCl AdvReac Intermediate Nausea and Verified 05/09/17 10:50 [From Dilaudid] Vomiting morphine AdvReac Unknown Nausea and Verified 05/09/17 10:50 Vomiting clindamycin HCl AdvReac Diarrhea Verified 05/09/17 10:50 [From Cleocin] clindamycin palmitate HCl AdvReac Diarrhea Verified 05/09/17 10:50 [From Cleocin] clindamycin phosphate AdvReac Diarrhea Verified 05/09/17 10:50 [From Cleocin] Home Meds: Home Meds Aspirin 81 mg PO DAILY 04/26/13 [History] Clopidogrel Bisulfate [Clopidogrel] 75 mg PO DAILY 04/26/13 [History] Famotidine [Pepcid] 20 mg PO BID 04/26/13 [History] Metoprolol Tartrate [Lopressor] 25 mg PO BID 04/26/13 [History] Nitroglycerin [Nitrostat] 0.4 mg SL ASDIRECTED PRN 04/26/13 [History] Acetaminophen [Tylenol] 325 mg PO Q6HR PRN 10/24/14 [History] Ondansetron HCl [Zofran] 4 mg PO Q8HR PRN 10/24/14 [History] Pnv95/Iron Fum/Folic Acid [ Caplet] 1 each PO DAILY 10/16/15 [History] Meclizine [Antivert] 25 mg PO TID PRN 12/11/15 [History] Cyanocobalamin (Vitamin B-12) [Vitamin B-12] 1,000 mcg PO DAILY 06/28/16 [ History] Metolazone 1.25 mg PO ASDIRECTED PRN 07/25/16 [History] Fluticasone Propionate [Flonase] 2 sprays INH DAILY 12/27/16 [History] tiZANidine [Zanaflex] 4 mg PO BEDTIME PRN 12/27/16 [History] Past Medical History HEENT History: Reports: Cataract, Impaired Vision, Sinusitis Other HEENT History: wear glasses Cardiovascular History: Reports: Automatic Implantable Cardioverter Defibrillators, Blood Clots/VTE/DVT, High Cholesterol, Hypertension, [place], Stents , Other (See Below) Other Cardiovascular History: defib. 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: , Prolapsed Uterus Musculoskeletal History: Reports: Arthritis, Fracture, Other (See Below) Other Musculoskeletal History: right carpal tunnel Neurological History: Reports: Concussion, CVA, Migraines, TIA Endocrine/Metabolic History: Reports: Obesity/BMI 30+ Hematologic History: Reports: Blood Transfusion(s) - Infectious Disease History Infectious Disease History: Reports: Chicken Pox, Measles - Past Surgical History HEENT Surgical History: Reports: Cataract Surgery Cardiovascular Surgical History: Reports: Coronary Artery Stent GI Surgical History: Reports: Cholecystectomy, EGD Female Surgical History: Reports: Hysterectomy Social & Family History - Family History Family Medical History: Noncontributory - Tobacco Use Smoking Status *Q: Never Smoker Years of Tobacco use: 20 Packs/Tins Daily: 1 Used Tobacco, but Quit: Yes Month/Year Tobacco Last Used: 2004 Second Hand Smoke Exposure: No - Caffeine Use Caffeine Use: Reports: Coffee, Soda - Alcohol Use Days Per Week of Alcohol Use: 0 - Recreational Drug Use Recreational Drug Use: No ED ROS GENERAL - Review of Systems Review Of Systems: See Below Constitutional: Reports: No Symptoms HEENT: Reports: No Symptoms Respiratory: Reports: No Symptoms Cardiovascular: Reports: No Symptoms GI/Abdominal: Reports: Nausea, Vomiting Musculoskeletal: Reports: No Symptoms Skin: Reports: No Symptoms Neurological: Reports: Dizziness, Headache ED EXAM, DIZZINESS - Physical Exam Exam: See Below Text/Narrative:: General: Female, moderate discomfort secondary to dizziness, alert and oriented x3 HEENT: head is atraumatic normocephalic, eyes pupils equal round reactive to light, extraocular eye movements intact,, sclera clear no conjunctivitis appreciated. Ears tympanic membranes clear and mustafa landmarks and light reflex are present bilaterally canals are clear. Nose no septal deviation, nares are clear, no blood present. Mouth mucosa is moist and pink no erythema or exudate noted in soft palate, tongue is midline uvula is midline, dentition is intact. Neck: Supple no thyromegaly no tracheal deviation. Nodes: Cervical nodes subclavicular nodes nontender no palpable lymphadenopathy noted. Lungs: clear to auscultation bilaterally with symmetrical respirations, no adventitious noise appreciated. CV: Regular rate and rhythm S1 and S2 appreciated no murmurs rubs or gallops noted. Abdomen: Soft, nontender, no palpable masses or organomegaly appreciated, no distention no guarding bowel sounds are present, [scars ]. Neuro: Cranial nerves II through XII grossly intact, Hints exam cerebral beating nystagmus can be appreciated on test of skew, cover uncover test reveals no deviations, she will not tolerate any head movement to complete the remainder of the exam Skin: Warm and dry, intact Extremities: No lower extremity edema appreciated, Course - Vital Signs Last Recorded V/S: Last Vital Signs Temp 96.0 F 09/29/17 15:43 Pulse 69 09/29/17 17:30 Resp 20 09/29/17 15:43 BP 152/74 H 09/29/17 17:30 Pulse Ox 98 09/29/17 17:30 - Orders/Labs/Meds Orders: Active Orders 24 hr Category Date Time Status Head wo Cont [CT] Stat Exams 09/29/17 16:44 Taken Labs: Laboratory Tests 09/29/17 09/29/17 Range/Units 16:44 17:18 WBC 9.3 (4.5-11.0) K/uL RBC 4.75 (3.30-5.50) M/uL Hgb 14.3 (12.0-15.0) g/dL Hct 43.1 (36.0-48.0) % MCV 91 (80-98) fL MCH 30 (27-31) pg MCHC 33 (32-36) % Plt Count 257 (150-400) K/uL Neut % (Auto) 86 H (36-66) % Lymph % (Auto) 6 L (24-44) % [place] % (Auto) 8 H (2-6) % Eos % (Auto) 0 L (2-4) % Baso % (Auto) 0 (0-1) % Sodium 144 (140-148) mmol/L Potassium 4.2 (3.6-5.2) mmol/L Chloride 108 (100-108) mmol/L Carbon Dioxide 25 (21-32) mmol/L Anion Gap 10.9 (5.0-14.0) mmol/L BUN 22 H (7-18) mg/dL Creatinine 0.9 (0.6-1.0) mg/dL Est Cr Clr Drug Dosing 36.48 mL/min Estimated GFR (MDRD) 60 (>60) Glucose 197 H (74-106) mg/dL Calcium 9.0 (8.5-10.1) mg/dL Total Bilirubin 0.3 (0.2-1.0) mg/dL AST 25 (15-37) U/L ALT 25 (12-78) U/L Alkaline Phosphatase 90 (46-116) U/L Total Protein 7.0 (6.4-8.2) g/dL Albumin 3.6 (3.4-5.0) g/dL Globulin 3.4 (2.3-3.5) g/dL Albumin/Globulin Ratio 1.1 L (1.2-2.2) Meds: Medications Discontinued Medications Generic Name Dose Route Start Last Admin Trade Name Shaye PRN Reason Stop Dose Admin Meclizine HCl 25 mg 09/29/17 16:44 09/29/17 17:07 Antivert PO 09/29/17 16:45 25 mg ONETIME ONE Administration Departure - Departure Time of Disposition: 18:04 Disposition: Home, Self-Care 01 Condition: Fair Clinical Impression: Dizzy - Discharge Information Referrals: PCP,None [Primary Care Provider] - Forms: ED Department Discharge Additional Instructions: Please use your meclizine as needed for dizzy spells, Please followup with your primary care provider in 3-5 days if not better, please call return to the emergency department with worsening of symptoms. - My Orders Last 24 Hours: My Active Orders 09/29/17 16:44 Head wo Cont [CT] Stat - Assessment/Plan Last 24 Hours: My Active Orders 09/29/17 16:44 Head wo Cont [CT] Stat Plan: Assessment Acuity = acute Site and laterality = dizziness Etiology = probable viral cause Manifestations = none Labs: CBC, CMP unremarkable CT scan shows no acute process Plan: She had good relief from the meclizine dizziness resolved plan is to discharge home continue that medication which she has a prescription for follow-up with primary care 3-5 days if not better This note was dictated using [employer] voice recognition software please call with any questions on syntax or jacky.
[2017-09-29 17:30] VITALS: BP 152/74
== END 2017-09-29 18:40 | disposition home or self-care (01) ==
LOC: JP.ED 15:42
DX: R42 Dizziness and giddiness (principal); F17.210 Nicotine dependence, cigarettes, uncomplicated; Z88.8 Allergy status to other drugs, medicaments and biological substances; Z88.1 Allergy status to other antibiotic agents; Z88.5 Allergy status to narcotic agent; Z79.82 Long term (current) use of aspirin; Z79.899 Other long term (current) drug therapy
CPT/HCPCS: 36415; 70450; 80053; 85025; 99284; A9270

== ENCOUNTER 2018-12-12 19:35 | Observation (INO) | payer MEDICARE, BC ==
--- NOTE | 2018-12-12 20:23 | EDM.PDOC ---
ED HPI GENERAL MEDICAL PROBLEM - General Chief Complaint: Cardiovascular Problem Stated Complaint: MEDICAL Time Seen by Provider: 12/12/18 20:19 Source of Information: Reports: Patient History Limitations: Reports: No Limitations - History of Present Illness INITIAL COMMENTS - FREE TEXT/NARRATIVE: pt arrived with a [facility] 2 [facility]opal [facility] the [facility]. Pt just got back from [place] where she had a stent placed in her left carotid artery. She did well with the stent placement. She became very constipated while in [place]. She did not have a BM for 1 week. She got up today and was straining on the comode and she had a near syncopal episode twice. Onset: Today Duration: Hour(s): Location: Reports: Head, Abdomen, Other (pt is very constipated. ) Associated Symptoms: Reports: Loss of Appetite Right Groin Pain Score (Numeric/FACES): 3 - Related Data Allergies Allergy/AdvReac Type Severity Reaction Status Date / Time aluminum hydroxide Allergy Unknown Cannot Verified 12/12/18 19:41 [From Maalox Maximum Remember Strength] amlodipine Allergy Unknown Cannot Verified 12/12/18 19:41 Remember atorvastatin Allergy Unknown Cannot Verified 12/12/18 19:41 Remember azithromycin Allergy Unknown Cannot Verified 12/12/18 19:41 Remember bumetanide Allergy Unknown Cannot Verified 12/12/18 19:41 Remember celecoxib Allergy Unknown Cannot Verified 12/12/18 19:41 Remember cephalexin [Cephalexin] Allergy Unknown Cannot Verified 12/12/18 19:41 Remember chromium Allergy Unknown Cannot Verified 12/12/18 19:41 Remember ciprofloxacin [From Cipro] Allergy Unknown Cannot Verified 12/12/18 19:41 Remember ciprofloxacin HCl Allergy Unknown Cannot Verified 12/12/18 19:41 [From Cipro] Remember codeine Allergy Unknown Cannot Verified 12/12/18 19:41 Remember copper [Copper] Allergy Unknown Cannot Verified 12/12/18 19:41 Remember Corticosteroids Allergy Unknown Cannot Verified 12/12/18 19:41 (Glucocorticoids) Remember dipyridamole Allergy Unknown Cannot Verified 12/12/18 19:41 Remember esomeprazole Allergy Unknown Cannot Verified 12/12/18 19:41 Remember ezetimibe Allergy Unknown Cannot Verified 12/12/18 19:41 Remember fenofibrate nanocrystallized Allergy Unknown Cannot Verified 12/12/18 19:41 [From Tricor] Remember fenofibrate,micronized Allergy Unknown Cannot Verified 12/12/18 19:41 [From Tricor] Remember fexofenadine Allergy Unknown Cannot Verified 12/12/18 19:41 Remember furosemide Allergy Unknown Cannot Verified 12/12/18 19:41 Remember hydrochlorothiazide Allergy Unknown Rash Verified 12/12/18 19:41 lansoprazole [From Prevacid] Allergy Unknown Cannot Verified 12/12/18 19:41 Remember lisinopril Allergy Unknown Cannot Verified 12/12/18 19:41 Remember magnesium hydroxide Allergy Unknown Cannot Verified 12/12/18 19:41 [From Maalox Maximum Remember Strength] neomycin [Neomycin] Allergy Unknown Cannot Verified 12/12/18 19:41 Remember niacin Allergy Unknown Cannot Verified 12/12/18 19:41 Remember nicotine Allergy Unknown Cannot Verified 12/12/18 19:41 Remember omeprazole Allergy Unknown Cannot Verified 12/12/18 19:41 Remember pravastatin Allergy Unknown Cannot Verified 12/12/18 19:41 Remember rosuvastatin calcium Allergy Unknown Cannot Verified 12/12/18 19:41 [From Crestor] Remember simethicone Allergy Unknown Cannot Verified 12/12/18 19:41 [From Maalox Maximum Remember Strength] Sulfa (Sulfonamide Allergy Unknown Cannot Verified 12/12/18 19:41 Antibiotics) Remember tetanus toxoid, adsorbed Allergy Unknown Cannot Verified 12/12/18 19:41 Remember venlafaxine Allergy Unknown Cannot Verified 12/12/18 19:41 Remember amoxicillin [From Augmentin] Allergy Rash Verified 12/12/18 19:41 carboxymethylcellulose sodium Allergy Cannot Verified 12/12/18 19:41 [From Refresh Tears] Remember cetirizine HCl [From Zyrtec] Allergy Cannot Verified 12/12/18 19:41 Remember clavulanic acid Allergy Rash Verified 12/12/18 19:41 [From Augmentin] colesevelam HCl Allergy Cannot Verified 12/12/18 19:41 [From WelChol] Remember dexamethasone [From TobraDex] Allergy Cannot Verified 12/12/18 19:41 Remember doxycycline Allergy Other Verified 12/12/18 19:41 Influenza Virus Vaccines Allergy Hives Verified 12/12/18 19:41 [id number]-Dvi Reductase Allergy Cannot Verified 12/12/18 19:41 Inhibitor Remember tobramycin [From TobraDex] Allergy Cannot Verified 12/12/18 19:41 Remember hydromorphone HCl AdvReac Intermediate Nausea and Verified 12/12/18 19:41 [From Dilaudid] Vomiting morphine AdvReac Unknown Nausea and Verified 12/12/18 19:41 Vomiting clindamycin HCl AdvReac Diarrhea Verified 12/12/18 19:41 [From Cleocin] clindamycin palmitate HCl AdvReac Diarrhea Verified 12/12/18 19:41 [From Cleocin] clindamycin phosphate AdvReac Diarrhea Verified 12/12/18 19:41 [From Cleocin] Home Meds: Home Meds Aspirin 81 mg PO DAILY 04/26/13 [History] Clopidogrel Bisulfate [Clopidogrel] 75 mg PO DAILY 04/26/13 [History] Famotidine [Pepcid] 20 mg PO BID 04/26/13 [History] Metoprolol Tartrate [Lopressor] 12.5 mg PO BID 04/26/13 [History] Nitroglycerin [Nitrostat] 0.4 mg SL ASDIRECTED PRN 04/26/13 [History] Acetaminophen [Tylenol] 325 mg PO Q6HR PRN 10/24/14 [History] Fluticasone Propionate [Flonase] 2 sprays INH DAILY PRN 12/27/16 [History] Albuterol Sulfate [Albuterol Sulfate Hfa] 2 puff IH Q4H PRN 12/12/18 [History] Aspirin 325 mg PO DAILY 12/12/18 [History] Ezetimibe [Zetia] 10 mg PO DAILY 12/12/18 [History] Furosemide [Lasix] 40 mg PO DAILY 12/12/18 [History] Lactase [Lactase Enzyme] 3,000 unit PO TID PRN 12/12/18 [History] Polyethylene Glycol 3350 [MiraLAX] 17 gm PO DAILY PRN 12/12/18 [History] Past Medical History HEENT History: Reports: Cataract, Impaired Vision, Sinusitis Other HEENT History: wear glasses Cardiovascular History: Reports: Automatic Implantable Cardioverter Defibrillators, Blood Clots/VTE/DVT, CAD, High Cholesterol, Hypertension, RI, Stents, Other (See Below) Other Cardiovascular History: defib. Respiratory History: Reports: Bronchitis, Recurrent, Pneumonia, Recurrent, SOB Other Respiratory History: wears oxygen at home on a prn basis Gastrointestinal History: Reports: Cholelithiasis, [employer] History: Reports: , Prolapsed Uterus Musculoskeletal History: Reports: Arthritis, Fracture, Other (See Below) Other Musculoskeletal History: right carpal tunnel Neurological History: Reports: Concussion, CVA, Migraines, TIA Endocrine/Metabolic History: Reports: Obesity/BMI 30+ Hematologic History: Reports: Blood Transfusion(s) - Infectious Disease History Infectious Disease History: Reports: Chicken Pox - Past Surgical History HEENT Surgical History: Reports: Cataract Surgery Cardiovascular Surgical History: Reports: Carotid Endarterectomy, Coronary Artery Stent Respiratory Surgical History: Reports: None GI Surgical History: Reports: Cholecystectomy, EGD Neurological Surgical History: Reports: None Musculoskeletal Surgical History: Reports: Carpal Tunnel Social & Family History - Family History Family Medical History: Noncontributory - Tobacco Use Smoking Status *Q: Never Smoker Second Hand Smoke Exposure: No - Caffeine Use Caffeine Use: Reports: Coffee, Tea - Recreational Drug Use Recreational Drug Use: No ED ROS GENERAL - Review of Systems Review Of Systems: See Below Constitutional: Reports: Weakness, Other (pt had 2 near syncopal episodes today. She was straining to have a stool. ) HEENT: Reports: No Symptoms Respiratory: Reports: No Symptoms Cardiovascular: Reports: No Symptoms Endocrine: Reports: No Symptoms GI/Abdominal: Reports: Abdominal Pain, Constipation : Reports: No Symptoms Musculoskeletal: Reports: No Symptoms Skin: Reports: No Symptoms ED EXAM, GENERAL - Physical Exam Exam: See Below Free Text/Narrative:: pt arrived with a history of 2 syncopal episodes at the apartment complex. She was straining to have a stool and she nearly passed out each time. Exam Limited By: No Limitations General Appearance: Alert, Mild Distress, Other (pupils are equal and reactive. ) Ears: Normal TMs Nose: Normal Inspection Throat/Mouth: Normal Inspection Head: Atraumatic Neck: Normal Inspection Respiratory/Chest: No Respiratory Distress Cardiovascular: Regular Rate, Rhythm GI/Abdominal: Soft, Non-Tender, Other (pt does have a fair amount of bruising in the rt groin. without hematoma formation. She is tender in her lower abdoman. ) (Female) Exam: Deferred Rectal (Female) Exam: Other (pt has a large amount of stool present in the rectum. ) Back Exam: Normal Inspection Extremities: Normal Inspection Neurological: Alert, Oriented, Normal Cognition Psychiatric: Anxious Course - Vital Signs Last Recorded V/S: Last Vital Signs Temp 36.6 C 12/12/18 20:11 Pulse 106 H 12/12/18 20:11 Resp 20 12/12/18 20:11 BP 154/65 H 12/12/18 20:11 Pulse Ox 96 12/12/18 20:11 - Orders/Labs/Meds Orders: Active Orders 24 hr Category Date Time Status EKG Documentation Completion [RC] ASDIRECTED Care 12/12/18 19:41 Active Enema [RC] ASDIRECTED Care 12/12/18 20:18 Active Enema [RC] ASDIRECTED Care 12/12/18 21:26 Ordered UA W/MICROSCOPIC [URIN] Urgent Lab 12/12/18 19:41 Ordered Sodium Chloride 0.9% [Normal Saline] 1,000 ml Med 12/12/18 21:00 Active IV ASDIRECTED EKG 12 Lead [EK] Routine Ther 12/12/18 19:41 Ordered Medication Orders Sodium Chloride (Normal Saline) 1,000 mls @ 250 mls/hr IV ASDIRECTED GUILLE Last Admin: 12/12/18 21:17 Dose: 250 mls/hr Labs: Laboratory Tests 12/12/18 12/12/18 Range/Units 20:11 20:11 WBC 7.2 (4.5-11.0) K/uL RBC 3.49 (3.30-5.50) M/uL Hgb 10.3 L D (12.0-15.0) g/dL Hct 32.5 L (36.0-48.0) % MCV 93 (80-98) fL MCH 30 (27-31) pg MCHC 32 (32-36) % Plt Count 356 (150-400) K/uL Neut % (Auto) 72 H (36-66) % Lymph % (Auto) 12 L (24-44) % [place] % (Auto) 13 H (2-6) % Eos % (Auto) 3 (2-4) % Baso % (Auto) 0 (0-1) % Sodium 141 (140-148) mmol/L Potassium 3.5 L (3.6-5.2) mmol/L Chloride 102 (100-108) mmol/L Carbon Dioxide 30 (21-32) mmol/L Anion Gap 12.5 (5.0-14.0) mmol/L BUN 14 (7-18) mg/dL Creatinine 0.9 (0.6-1.0) mg/dL Est Cr Clr Drug Dosing 36.14 mL/min Estimated GFR (MDRD) 60 (>60) Glucose 135 H (74-106) mg/dL Calcium 9.6 (8.5-10.1) mg/dL Total Bilirubin 0.9 D (0.2-1.0) mg/dL AST 31 D (15-37) U/L ALT 24 (12-78) U/L Alkaline Phosphatase 103 (46-116) U/L Troponin I < 0.017 (0.000-0.056) ng/mL Total Protein 6.7 (6.4-8.2) g/dL Albumin 2.9 L (3.4-5.0) g/dL Globulin 3.8 H (2.3-3.5) g/dL Albumin/Globulin Ratio 0.8 L (1.2-2.2) Meds: Medications Generic Name Dose Route Start Last Admin Trade Name Freq PRN Reason Stop Dose Admin Sodium Chloride 1,000 mls @ 250 mls/hr 12/12/18 21:00 12/12/18 21:17 Normal Saline IV 250 mls/hr ASDIRECTED [facility] Administration - Re-Assessments/Exams Free Text/Narrative Re-Assessment/Exam: 12/12/18 21:13 pt has a hg of 10.3. She looks like she is on the dry side. She is being hydrated. She was given a fleets enema and she was unable to sit on the comode and push because she would pass out. She has a normal trop and her ekg did not show any acute findings. Departure - Departure Time of Disposition: 21:15 Disposition: Admitted As Inpatient 64 Condition: Fair Clinical Impression: Dehydration, Constipation, History of left common carotid artery stent placement Referrals: PCP,None [Primary Care Provider] - Forms: ED Department Discharge Care Plan Goals: admit to Dr Kohler. - My Orders Last 24 Hours: My Active Orders 12/12/18 19:41 EKG Documentation Completion [RC] ASDIRECTED UA W/MICROSCOPIC [URIN] Urgent EKG 12 Lead [EK] Routine 12/12/18 20:18 Enema [RC] ASDIRECTED 12/12/18 21:00 Sodium Chloride 0.9% [Normal Saline] 1,000 ml IV ASDIRECTED 12/12/18 21:26 Enema [RC] ASDIRECTED - Assessment/Plan Last 24 Hours: My Active Orders 12/12/18 19:41 EKG Documentation Completion [RC] ASDIRECTED UA W/MICROSCOPIC [URIN] Urgent EKG 12 Lead [EK] Routine 12/12/18 20:18 Enema [RC] ASDIRECTED 12/12/18 21:00 Sodium Chloride 0.9% [Normal Saline] 1,000 ml IV ASDIRECTED 12/12/18 21:26 Enema [RC] ASDIRECTED
[2018-12-12] MEDS ORDERED: Sodium Chloride 0.9% 1,000 ML IV SCH ×2 (21:00→23:15)
[2018-12-12] MEDS ORDERED: LACTASE 3000 UNIT PO PRN (22:54)
[2018-12-12] MEDS ORDERED: Nitroglycerin 0.4 MG Tab.SL SL PRN (22:54)
[2018-12-12] MEDS ORDERED: Ondansetron 4 MG/2 ML SDV IVPUSH PRN (22:56)
[2018-12-12] MEDS ORDERED: Acetaminophen 325 MG Tab PO PRN ×2 (23:05→23:12)
[2018-12-12] MEDS ORDERED: Albuterol 8 GM Inhaler INH PRN (23:13)
[2018-12-12] MEDS ORDERED: Polyethylene Glycol 3350 Powder 17 GM Packet PO PRN (23:15)
[2018-12-12] MEDS ORDERED: Fluticasone Propionate Nasal Spray 16 GM Bottle NAS PRN (23:30)
--- NOTE | 2018-12-13 01:25 | HP ---
IDENTIFYING DATA: Jose Gautam is an 83-year-old single female from assisted care apartments in [place]. CHIEF COMPLAINT: Weakness, dizziness, and constipation. HISTORY OF PRESENT ILLNESS: This elderly female has a noted history of chronic atherosclerosis. She has had a previous TIA and identified peripheral vascular disease as well as coronary artery disease with coronary artery stenting on multiple occasions. She had a reported transient ischemic attack in June of 2018 with reported blurred vision, slurred speech, and transient right-sided facial weakness, which resolved spontaneously. She has a noted history of bilateral carotid bruits and on evaluation was found to have critical stenosis of the left carotid artery. Last week she underwent endovascular stenting of the left internal carotid artery and had a 7-day stay reportedly for reasons of blood pressure lability and general weakness, discharged to home. Today, she reports she has not had a bowel movement for greater than 1 week's time and with straining on the toilet had orthostasis and near-syncope and so summoned emergency medical personnel. She was transferred to the emergency room and with attempts to defecate had recurrent dizziness and lightheadedness. Therefore, she is admitted for continued supportive care and observation. She reports she was provided a single Fleet's enema. She did have a rectal suppository self- administered at home today, unsure of the nature of the agent that she used. She reports this evening she had modest stooling output. She has had no nausea, emesis, or hematemesis. Chronic dyspepsia is managed with Pepcid. She has had no melena or hematochezia. She is voiding with good regularity. She has chronic mild stress incontinence with use of an adult diaper. PAST MEDICAL HISTORY: Previous surgeries include left carotid artery stenting in November of 2018. Additionally, she has had previous coronary artery stenting, cholecystectomy, and total abdominal hysterectomy. She has an implantable cardiac defibrillator in place for 5 years' time reporting this has been activated on . Additional chronic health problems include chronic dyspepsia, coronary artery disease, hypertension, and hyperlipidemia. HABITS: Previous smoker, now abstaining. Caffeine intake averages 3 cups of coffee daily. No alcohol use. IMMUNIZATIONS: Influenza and pneumococcal vaccines are current. ALLERGIES: REPORTS ALLERGY OR SENSITIVITY TO TETANUS VACCINATIONS. ALLERGIES MULTIPLE NOTED IN THE MEDICAL RECORDS. THESE ARE NON-CONFIRMED AND MAY REPRESENT SIDE EFFECTS RATHER THAN TRUE ALLERGIES. CURRENT MEDICATIONS: Aspirin 81 mg daily, clopidogrel 75 mg daily, Pepcid 20 mg b.i.d., metoprolol tartrate 12.5 mg b.i.d., nitroglycerin 0.4 mg sublingually p.r.n. angina, acetaminophen 325 mg q.6 hours p.r.n. discomfort, Flonase 2 sprays daily p.r.n. nasal congestion, albuterol metered-dose inhaler 2 puffs q.4 hours p.r.n., aspirin will be increased to 325 mg daily on completion of clopidogrel therapy, 10 mg daily, furosemide 40 mg daily, lactase enzyme 3000 units t.i.d., MiraLAX 17 g daily p.r.n. constipation, fiber supplement 1 tablespoon daily p.r.n. SOCIAL HISTORY: Resides in her senior apartment in [place]. She performs household cleaning, meal preparation, laundry, and self cares without assistance. She continues to drive, restricting driving to daytime only. She notes vision is reasonably clear with use of glasses. She is able to read standard print and view the television. Following hospital discharge she was referred for home care services. Followup initial meeting was anticipated on 12/13/2018 to discuss needs and establish care. FAMILY HISTORY: Noncontributory. IMMUNIZATIONS: Including influenza and pneumococcal are current. REVIEW OF SYSTEMS: NEUROLOGIC: History of TIA and remote CVA. Does have a history of reported migraines, none currently. No history of glaucoma. CARDIAC: Ischemic heart disease. No recent angina-like pain. Denies palpitations or syncope. Hypertension and hyperlipidemia are noted. RESPIRATORY: Mild dyspnea and wheezing, relieved with p.r.n. use of albuterol metered-dose inhaler. No recent acute URIs. Denying cough or purulent sputum production. GASTROINTESTINAL: Dyspepsia is managed with use of H2 blockers. No history of hepatitis, jaundice, melena, or hematochezia. GENITOURINARY: Rises repeatedly at night to void. Urge and urinary incontinence are noted. MUSCULOSKELETAL: Bilateral shoulder pain secondary to impingement syndrome. She has chronic musculoskeletal low back pain. Ambulates with the use of a walker. No recent falls. PHYSICAL EXAMINATION: GENERAL: Appearance is that of an adult female, now resting comfortably. VITAL SIGNS: Temperature 36.6 degrees centigrade, pulse 106, respiratory rate 20, blood pressure 154/65, O2 sat is 96% on room air. HEENT: Hearing is slightly diminished. Extraocular eye movements are symmetrical. Speech is clear. No facial asymmetries noted. NECK: Brisk carotid pulses. Mild bilateral bruits are audible. No JVD or stridor. No thyromegaly. LUNGS: Few inspiratory rales at the bases at the right hemithorax. Non-tachypneic. No wheezes or rhonchi noted. HEART: Mildly tachycardic. Regular without murmurs or gallops. ABDOMEN: Nondistended with active sounds. No obvious organomegaly. She has tenderness in the lower quadrants without guarding, rebound, or referred pain. No CVA tenderness. Significant bruising at the right inguinal crease at the site of catheter insertion as well as lower abdominal bruising secondary to therapeutic Lovenox injections received during hospital stay. EXTREMITIES: Cool to touch. No pitting edema. Palpable pulses, at the dorsal pedal and posterior tibial regions are weak, though notable brisk capillary refill. No skin breakdown. LABORATORY DATA: On admission: WBC 7.2, hemoglobin 10.3, platelet count 356,000 with 72 segs, 12 lymphocytes, 13 monos. Sodium 141, potassium 3.5, BUN 14, creatinine 0.9, GFR 60, glucose 135 in a nonfasting state. Alkaline phosphatase 103, AST 31, troponin less than 0.017. IMPRESSION: 1. Complaints of recurrent near syncope with Valsalva. 2. Constipation of 1 week's duration. No recent regular use of narcotic analgesics. Relative inactivity secondary to recent endovascular procedure. 3. History of carotid artery disease with accompanying transient ischemic attack in June 2018, now status post left internal carotid artery stenting. 4. History of previous cerebrovascular accident in remote past. 5. Coronary artery disease with cardiac angiography and vascular stenting, accompanying cardiomyopathy with defibrillator placement. 6. Chronic essential hypertension. 7. Mild urinary incontinence. 8. Degenerative arthritis of the lumbar spine and chronic impingement syndrome with pain at the shoulders. 9. Remote history of tobacco use, now abstaining. 10.Intermittent dyspepsia with use of H2 blockers. 11.The patient reports multiple allergies as noted in the medical record. These may represent combination of allergies plus related side effects rather than true allergies. PLAN: The patient is admitted to observation bed. Note stooling output in the emergency room. Will offer clear liquid diet and advance solid foods if feeling stable. Continue to provide IV fluids with reduced flow rate of 125 mL/h. Allow up as tolerated with standby assistance to monitor for recurrent orthostasis and dizziness. We will continue with home medications as well as p.r.n. Tylenol. If abdominal cramping an obstipation is noted, Dulcolax suppository will be administered on a p.r.n. basis. Flat plate of the abdomen. Followup BMP and CBC are requested in the morning. If she has shown resolution of her constipation and is taking adequate fluids and food, we will consider discharge to home with arrangements to be confirmed for home care services and outpatient followup. The patient reports health care directive is on file with full code status be desired. Bladimir Kohler MD /[id number]
[2018-12-13] MEDS ORDERED: Aspirin 81 MG Tab.EC PO SCH (09:00)
[2018-12-13] MEDS ORDERED: Ezetimibe 10 MG Tab PO SCH (09:00)
[2018-12-13] MEDS ORDERED: Famotidine 20 MG Tab PO SCH (09:00)
[2018-12-13] MEDS ORDERED: Bisacodyl 10 MG Supp RECTAL SCH (09:00)
[2018-12-13] MEDS ORDERED: Metoprolol Tartrate 25 MG Tab PO SCH (09:00)
[2018-12-13] MEDS ORDERED: Clopidogrel 75 MG Tab PO SCH (09:00)
[2018-12-13] MEDS ORDERED: Mineral Oil/Petrolatum/Phenylephrine/Shark Liver Oil Oint 57 GM Tube RECTAL PRN (09:03)
[2018-12-13] MEDS ORDERED: Fluticasone Propionate Nasal Spray 16 GM Bottle NAS PRN (09:13)
[2018-12-13] MEDS ORDERED: Potassium Chloride 20 MEQ Tab.ER PO SCH (09:30)
[2018-12-13 11:08] VITALS: BP 124/62
--- NOTE | 2018-12-13 13:14 | CRLCR ---
INDICATION: Constipation TECHNIQUE: Abdomen 1 view. COMPARISON: None FINDINGS: Bowel: Diffuse colonic fecal retention. Soft tissues: No sign of free air. No sign of soft tissue mass. No suspicious calcifications. Proximal left iliac vascular stent. Bones: Unremarkable for age. IMPRESSION: Diffuse colonic fecal retention. Dictated by Mikey Pérez MD @ Dec 13 2018 1:13PM Signed by Dr. Mikey Pérez @ Dec 13 2018 1:13PM
--- NOTE | 2018-12-13 14:40 | DISCH ---
REASON FOR ADMISSION: An 83-year-old female with history of widespread atherosclerotic disease with coronary artery, peripheral vascular, carotid artery disease with previous acute myocardial infarction with interventional cardiac stenting as well as prior cerebrovascular accident, was noted to have had a transient ischemic attack with transient visual blurring and right-sided facial weakness in June . She underwent left carotid artery stenting at [facility] in [place] 1 week ago and with labile blood pressures, she was kept for observation for approximately 1 week's time. Discharged to home yesterday morning, she noted obstipation and abdominal cramping with straining and Valsalva on the stool, she had developing orthostasis and sense of near syncope. Therefore, presented to the emergency room for evaluation. 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 Additionally, she has a history of hypertension, hyperlipidemia, and chronic dyspepsia. Previous smoker, now abstaining. Has modest caffeine intake and no alcohol use. PHYSICAL EXAMINATION: VITAL SIGNS: On admission, initial vitals, temperature 36.6 degrees centigrade; pulse 106, sinus tachycardia; respiratory rate 20; blood pressure 154/65; O2 sats 96% on room air. HEENT: Diminished hearing acuity. Otherwise unremarkable. NECK: Brisk carotid pulses with bilateral grade 1 to 2 bruits. No JVD or stridor. LUNGS: Inspiratory rales at the bases of the right hemithorax. Nontachypneic. No wheezes or rhonchi. HEART: Mild tachycardia. Sinus rhythm by review. No murmurs or gallops noted. ABDOMEN: Nondistended with active sounds. No organomegaly. Tenderness in the lower quadrants without guarding, rebound, or referred pain. No CVA tenderness. She did have bruising at the right inguinal crease and left lower quadrant of the abdomen secondary to interventional therapy and recent Lovenox anticoagulant therapy. EXTREMITIES: Cool to touch. No pitting. Palpable diminished pulses. No ischemic skin changes evident. LABORATORY DATA: On admission: WBC 7.2, hemoglobin 10.3, platelet count 356,000. Sodium 141, potassium 3.5, BUN 14, creatinine 0.9, GFR 60, glucose 135, alkaline phosphatase 103, AST 31, troponin less than 0.017. HOSPITAL COURSE: Jose was admitted with complaints of orthostasis and near-syncope with strain secondary to constipation. She received a Fleet Enema in the emergency room with modest results and was admitted to observation status through the nighttime hours. IV fluid hydration was provided. She had modest amount of mixed stool and urine passed through the night and was taking clear liquids well. The following morning, she had a large soft stool, was voiding well and maintaining adequate intake. Plans to advance diet to heart healthy diet were enacted with subsequent anticipated discharge later today. DISCHARGE INSTRUCTIONS: 1. Will discharge home with family on 12/13/2018. 2. Activity: Up as tolerated. May drive. 3. Low-sodium, heart healthy diet. 4. Keep pending appointment with Cardiology Services. Request scheduling a followup with primary physician, Dr. Edvin Lay. 5. Confirm home care referral to [facility]. 6. Medications: Continue same medications as admission. 7. Maintain adequate fluid intake with standard diet. ADMITTING DIAGNOSES: 1. Near-syncope with Valsalva. 2. Constipation. 3. Carotid artery disease with accompanying transient ischemic attack resulting in left internal carotid artery stenting. 4. Remote history of cerebrovascular accident. 5. Coronary artery disease, previous cardiac angioplasty and stenting accompanying cardiomyopathy with defibrillator placement. 6. Hypertension. 7. Urinary incontinence. 8. Degenerative arthritis of lumbar spine and chronic impingement syndrome with pain at the shoulders. 9. Remote history of tobacco use, now abstaining. 10.Intermittent dyspepsia. DISCHARGE DIAGNOSES: 1. Presentation of near-syncope secondary to Valsalva, stemming from constipation, now resolved. 2. Constipation. 3. Carotid artery disease with accompanying transient ischemic attack resulting in left internal carotid artery stenting. 4. Remote history of cerebrovascular accident. 5. Coronary artery disease, previous cardiac angioplasty and stenting accompanying cardiomyopathy with defibrillator placement. 6. Hypertension. 7. Urinary incontinence. 8. Degenerative arthritis of lumbar spine and chronic impingement syndrome with pain at the shoulders. 9. Remote history of tobacco use, now abstaining. 10.Intermittent dyspepsia.
== END 2018-12-13 15:45 | disposition home health service (06) ==
LOC: JP.ED 19:35 → JP.MS 21:30
PROVIDERS: ADMIT Family Medicine; ATTEND Family Medicine
DX: R55 Syncope and collapse (principal); K59.00 Constipation, unspecified; R32 Unspecified urinary incontinence; R10.13 Epigastric pain; I25.10 Atherosclerotic heart disease of native coronary artery without angina pectoris; I73.9 Peripheral vascular disease, unspecified; I25.2 Old myocardial infarction; I10 Essential (primary) hypertension; I42.9 Cardiomyopathy, unspecified; E78.5 Hyperlipidemia, unspecified; M47.896 Other spondylosis, lumbar region; M75.42 Impingement syndrome of left shoulder; M75.41 Impingement syndrome of right shoulder; Z88.8 Allergy status to other drugs, medicaments and biological substances; Z88.1 Allergy status to other antibiotic agents; Z88.6 Allergy status to analgesic agent; Z88.5 Allergy status to narcotic agent; Z88.2 Allergy status to sulfonamides; Z88.0 Allergy status to penicillin; Z95.5 Presence of coronary angioplasty implant and graft; Z95.810 Presence of automatic (implantable) cardiac defibrillator; Z86.73 Personal history of transient ischemic attack (TIA), and cerebral infarction without residual deficits; Z87.891 Personal history of nicotine dependence; Z79.82 Long term (current) use of aspirin; Z79.02 Long term (current) use of antithrombotics/antiplatelets; Z79.899 Other long term (current) drug therapy
CPT/HCPCS: 36415; 74018; 80048; 80053; 81001; 84484; 85025; 85027; 93005; 96360; 96361; 99285; A9270; G0378; J7030; 93010

== ENCOUNTER 2018-12-28 13:40 | Emergency (ER) | payer MEDICARE, BC ==
[2018-12-28 14:09] VITALS: BP 149/67
--- NOTE | 2018-12-28 14:54 | EDM.PDOC ---
ED HPI GENERAL MEDICAL PROBLEM - General Chief Complaint: Cardiovascular Problem Stated Complaint: ABSCESS POST SURGERY Time Seen by Provider: 12/28/18 14:48 Source of Information: Reports: Patient, Provider History Limitations: Reports: No Limitations - History of Present Illness INITIAL COMMENTS - FREE TEXT/NARRATIVE: Patient presents from the clinic after arriving for a scheduled appointment and describing pain in the site of her recent angiogram procedure. She had a stent placed in her left carotid artery on 05 December at [facility]. She did okay but in the last couple of days has noticed pain as well as new bruising in the region of her angiogram puncture. After seeing Dr. Lay today, he directed her here for further evaluation. She denies fever or chills. She has pain at the puncture site along with redness however there is been no drainage or other discharge. No other recognized changes in health. Duration: Day(s): (2) Location: Reports: Abdomen (Right inguinal crease region.) Quality: Reports: Ache, Dull, Pressure Severity: Moderate Improves with: Reports: None Worsens with: Reports: Movement Context: Reports: Other (Site of previous angiography study as well as carotid artery stenting.) Right Groin Pain Score (Numeric/FACES): 4 - Related Data Allergies Allergy/AdvReac Type Severity Reaction Status Date / Time aluminum hydroxide Allergy Unknown Cannot Verified 12/28/18 14:11 [From Maalox Maximum Remember Strength] amlodipine Allergy Unknown Cannot Verified 12/28/18 14:11 Remember atorvastatin Allergy Unknown Cannot Verified 12/28/18 14:11 Remember azithromycin Allergy Unknown Cannot Verified 12/28/18 14:11 Remember bumetanide Allergy Unknown Cannot Verified 12/28/18 14:11 Remember celecoxib Allergy Unknown Cannot Verified 12/28/18 14:11 Remember cephalexin [Cephalexin] Allergy Unknown Cannot Verified 12/28/18 14:11 Remember chromium Allergy Unknown Cannot Verified 12/28/18 14:11 Remember ciprofloxacin [From Cipro] Allergy Unknown Cannot Verified 12/28/18 14:11 Remember ciprofloxacin HCl Allergy Unknown Cannot Verified 12/28/18 14:11 [From Cipro] Remember codeine Allergy Unknown Cannot Verified 12/28/18 14:11 Remember copper [Copper] Allergy Unknown Cannot Verified 12/28/18 14:11 Remember Corticosteroids Allergy Unknown Cannot Verified 12/28/18 14:11 (Glucocorticoids) Remember dipyridamole Allergy Unknown Cannot Verified 12/28/18 14:11 Remember esomeprazole Allergy Unknown Cannot Verified 12/28/18 14:11 Remember ezetimibe Allergy Unknown Cannot Verified 12/28/18 14:11 Remember fenofibrate nanocrystallized Allergy Unknown Cannot Verified 12/28/18 14:11 [From Tricor] Remember fenofibrate,micronized Allergy Unknown Cannot Verified 12/28/18 14:11 [From Tricor] Remember fexofenadine Allergy Unknown Cannot Verified 12/28/18 14:11 Remember furosemide Allergy Unknown Cannot Verified 12/28/18 14:11 Remember hydrochlorothiazide Allergy Unknown Rash Verified 12/28/18 14:11 lansoprazole [From Prevacid] Allergy Unknown Cannot Verified 12/28/18 14:11 Remember lisinopril Allergy Unknown Cannot Verified 12/28/18 14:11 Remember magnesium hydroxide Allergy Unknown Cannot Verified 12/28/18 14:11 [From Maalox Maximum Remember Strength] neomycin [Neomycin] Allergy Unknown Cannot Verified 12/28/18 14:11 Remember niacin Allergy Unknown Cannot Verified 12/28/18 14:11 Remember nicotine Allergy Unknown Cannot Verified 12/28/18 14:11 Remember omeprazole Allergy Unknown Cannot Verified 12/28/18 14:11 Remember pravastatin Allergy Unknown Cannot Verified 12/28/18 14:11 Remember rosuvastatin calcium Allergy Unknown Cannot Verified 12/28/18 14:11 [From Crestor] Remember simethicone Allergy Unknown Cannot Verified 12/28/18 14:11 [From Maalox Maximum Remember Strength] Sulfa (Sulfonamide Allergy Unknown Cannot Verified 12/28/18 14:11 Antibiotics) Remember tetanus toxoid, adsorbed Allergy Unknown Cannot Verified 12/28/18 14:11 Remember venlafaxine Allergy Unknown Cannot Verified 12/28/18 14:11 Remember amoxicillin [From Augmentin] Allergy Rash Verified 12/28/18 14:11 carboxymethylcellulose sodium Allergy Cannot Verified 12/28/18 14:11 [From Refresh Tears] Remember cetirizine HCl [From Zyrtec] Allergy Cannot Verified 12/28/18 14:11 Remember clavulanic acid Allergy Rash Verified 12/28/18 14:11 [From Augmentin] colesevelam HCl Allergy Cannot Verified 12/28/18 14:11 [From WelChol] Remember dexamethasone [From TobraDex] Allergy Cannot Verified 12/28/18 14:11 Remember doxycycline Allergy Other Verified 12/28/18 14:11 Influenza Virus Vaccines Allergy Hives Verified 12/28/18 14:11 Nmskipd-Gph-Plm Reductase Allergy Cannot Verified 12/28/18 14:11 Inhibitor Remember tobramycin [From TobraDex] Allergy Cannot Verified 12/28/18 14:11 Remember hydromorphone HCl AdvReac Intermediate Nausea and Verified 12/28/18 14:11 [From Dilaudid] Vomiting morphine AdvReac Unknown Nausea and Verified 12/28/18 14:11 Vomiting clindamycin HCl AdvReac Diarrhea Verified 12/28/18 14:11 [From Cleocin] clindamycin palmitate HCl AdvReac Diarrhea Verified 12/28/18 14:11 [From Cleocin] clindamycin phosphate AdvReac Diarrhea Verified 12/28/18 14:11 [From Cleocin] Home Meds: Home Meds Aspirin 81 mg PO DAILY 04/26/13 [History] Clopidogrel Bisulfate [Clopidogrel] 75 mg PO DAILY 04/26/13 [History] Famotidine [Pepcid] 20 mg PO BID 04/26/13 [History] Metoprolol Tartrate [Lopressor] 25 mg PO BID 04/26/13 [History] Nitroglycerin [Nitrostat] 0.4 mg SL ASDIRECTED PRN 04/26/13 [History] Acetaminophen [Tylenol] 325 mg PO Q4HR PRN 10/24/14 [History] Fluticasone Propionate [Flonase] 2 sprays INH DAILY PRN 12/27/16 [History] Albuterol Sulfate [Albuterol Sulfate Hfa] 2 puff IH Q4H PRN 12/12/18 [History] Ezetimibe [Zetia] 10 mg PO DAILY 12/12/18 [History] Furosemide [Lasix] 40 mg PO DAILY PRN 12/12/18 [History] Lactase [Lactase Enzyme] 3,000 unit PO TID PRN 12/12/18 [History] Polyethylene Glycol 3350 [MiraLAX] 17 gm PO DAILY PRN 12/12/18 [History] Past Medical History HEENT History: Reports: Cataract, Impaired Vision, Sinusitis Other HEENT History: wear glasses Cardiovascular History: Reports: Automatic Implantable Cardioverter Defibrillators, Blood Clots/VTE/DVT, CAD, High Cholesterol, Hypertension, [place], Stents, Other (See Below) Other Cardiovascular History: defib. Respiratory History: Reports: Bronchitis, Recurrent, Pneumonia, Recurrent, SOB Other Respiratory History: wears oxygen at home on a prn basis Gastrointestinal History: Reports: Cholelithiasis, PUD Genitourinary History: Reports: None HAND LASTER History: Reports: , Prolapsed Uterus Musculoskeletal History: Reports: Arthritis, Fracture, Other (See Below) Other Musculoskeletal History: right carpal tunnel Neurological History: Reports: Concussion, CVA, Migraines, TIA Endocrine/Metabolic History: Reports: Obesity/BMI 30+ Hematologic History: Reports: Anticoagulation Therapy, Blood Transfusion(s) - Infectious Disease History Infectious Disease History: Reports: Chicken Pox - Past Surgical History Head Surgeries/Procedures: Reports: None HEENT Surgical History: Reports: Cataract Surgery Cardiovascular Surgical History: Reports: Carotid Endarterectomy, Coronary Artery Stent Respiratory Surgical History: Reports: None GI Surgical History: Reports: Cholecystectomy, EGD Female Surgical History: Reports: Hysterectomy, Other (See Below) Other Female Surgeries/Procedures: partial hysterectomy Neurological Surgical History: Reports: None Musculoskeletal Surgical History: Reports: Carpal Tunnel Dermatological Surgical History: Reports: None Social & Family History - Family History Family Medical History: Noncontributory - Tobacco Use Smoking Status *Q: Former Smoker Used Tobacco, but Quit: Yes Month/Year Tobacco Last Used: 2004 Second Hand Smoke Exposure: No - Caffeine Use Caffeine Use: Reports: Coffee Caffeine Use Comment: 3 daily - Recreational Drug Use Recreational Drug Use: No ED ROS GENERAL - Review of Systems Review Of Systems: See Below Constitutional: Denies: Fever, Chills, Malaise GI/Abdominal: Reports: Abdominal Pain (Right inguinal crease region). Denies: Nausea, Vomiting Skin: Reports: Erythema, Change in Color. Denies: Rash ED EXAM, GENERAL - Physical Exam Exam: See Below Exam Limited By: No Limitations General Appearance: Alert, Mild Distress GI/Abdominal: Tender (There is a roughly 3 cm area of tender redness and induration with a small central opening. No expressible discharge. There is pain lateral to this point almost all the way to the ileum.) Extremities: Normal Inspection Course - Vital Signs Last Recorded V/S: Last Vital Signs Temp 36.6 C 12/28/18 14:12 Pulse 84 12/28/18 14:12 Resp 16 12/28/18 14:12 BP 149/67 H 12/28/18 14:12 Pulse Ox 93 L 12/28/18 14:12 - Orders/Labs/Meds Orders: Active Orders 24 hr Category Date Time Status Saline Lock Insert [OM.PC] Routine Oth 12/28/18 14:57 Ordered Labs: Laboratory Tests 12/28/18 12/28/18 12/28/18 Range/Units 15:13 15:13 15:13 WBC 11.7 H (4.5-11.0) K/uL RBC 3.86 (3.30-5.50) M/uL Hgb 11.4 L D (12.0-15.0) g/dL Hct 36.3 (36.0-48.0) % MCV 94 (80-98) fL MCH 30 (27-31) pg MCHC 31 L (32-36) % Plt Count 359 (150-400) K/uL Neut % (Auto) 77 H (36-66) % Lymph % (Auto) 9 L (24-44) % [place]born % (Auto) 12 H (2-6) % Eos % (Auto) 1 L (2-4) % Baso % (Auto) 0 (0-1) % PT 10.6 (9.5-12.0) sec INR 0.96 (0.80-1.20) Sodium 137 L (140-148) mmol/L Potassium 3.6 (3.6-5.2) mmol/L Chloride 102 (100-108) mmol/L Carbon Dioxide 29 (21-32) mmol/L Anion Gap 9.6 (5.0-14.0) mmol/L BUN 15 (7-18) mg/dL Creatinine 0.8 (0.6-1.0) mg/dL Est Cr Clr Drug Dosing 40.66 mL/min Estimated GFR (MDRD) > 60 (>60) Glucose 107 H (74-106) mg/dL Calcium 9.1 (8.5-10.1) mg/dL Total Bilirubin 0.5 (0.2-1.0) mg/dL AST 23 (15-37) U/L ALT 21 (12-78) U/L Alkaline Phosphatase 107 (46-116) U/L C-Reactive Protein 11.37 H (0.0-0.3) mg/dL Total Protein 7.1 (6.4-8.2) g/dL Albumin 2.9 L (3.4-5.0) g/dL Globulin 4.2 H (2.3-3.5) g/dL Albumin/Globulin Ratio 0.7 L (1.2-2.2) Meds: Medications Discontinued Medications Generic Name Dose Route Start Last Admin Trade Name Freq PRN Reason Stop Dose Admin Sodium Chloride 80 mls @ 3.5 mls/sec 12/28/18 15:03 Normal Saline IV 12/28/18 15:04 ONETIME ONE Iopamidol 100 ml 12/28/18 15:15 Isovue-300 (61%) IV 12/28/18 15:16 . DIRECTED GUILLE Sodium Chloride 10 ml 12/28/18 14:57 Saline Flush FLUSH ASDIRECTED PRN Keep Vein Open Sodium Chloride 10 ml 12/28/18 15:03 12/28/18 15:20 Saline Flush FLUSH 12/28/18 15:04 10 ml ONETIME ONE Administration - Re-Assessments/Exams Free Text/Narrative Re-Assessment/Exam: 12/28/18 22:37 Given her description of symptoms and time frame since the angiogram, we need to obtain a CT scan of the abdomen and pelvis to look for abscess or other problems in that area. CT scan later showed 3 small distinct abscesses in the area of discomfort. There was mild stranding/inflammatory change near these lesions. I reviewed findings with the patient. At this point she does not want to return at all to [facility] in [place] as she was unhappy with her care there overall. If additional follow-up as needed she would go to [facility] and [place] or [facility] in [place]. I recommend we at least have her start antibiotic therapy and then recheck with Dr. Trimble in the short-term to discuss whether she might need any attempt at draining the abscesses. They are large and could be difficult to localize it except with ultrasound. In the end she opted for antibiotic treatment and clinic recheck. Prescription called to [facility] pharmacy for clindamycin 150 mg, 42 capsules; use as directed. The patient has been extensive list of medication allergies and although clindamycin was listed as giving diarrhea, I discussed with her that I did not feel it was an allergic reaction rather a somewhat expected side effect of many antibiotics. She was discharged in stable condition. Departure - Departure Time of Disposition: 18:21 Disposition: Home, Self-Care 01 Condition: Good Clinical Impression: Abscess after procedure Instructions: Incision and Drainage, Care After Referrals: Edvin Lay MD [Primary Care Provider] - Forms: ED Department Discharge Additional Instructions: Use warm moist heat to the effected area 4 times daily over 20 minutes each time. Start antibiotic tonight. Contact Dr. Trimble's office tomorrow to ask about next follow-up steps for these abscesses. If you feel worse in any way, return to emergency department. - My Orders Last 24 Hours: My Active Orders 12/28/18 14:57 Saline Lock Insert [OM.PC] Routine - Assessment/Plan Last 24 Hours: My Active Orders 12/28/18 14:57 Saline Lock Insert [OM.PC] Routine
[2018-12-28] MEDS ORDERED: Sodium Chloride 0.9% 10 ML Syringe FLUSH PRN (14:57)
[2018-12-28] MEDS ORDERED: Sodium Chloride 0.9% 80 ML IV ONE (15:03)
[2018-12-28] MEDS ORDERED: Sodium Chloride 0.9% 10 ML Syringe FLUSH ONE (15:03)
[2018-12-28] MEDS ORDERED: Iopamidol 612 MG/ML 100 ML Bottle IV SCH (15:15)
--- NOTE | 2018-12-28 16:18 | CRLCT ---
INDICATION: Redness pain and swelling. Evaluate for abscess or aneurysm TECHNIQUE: CT abdomen and pelvis acquired with IV contrast. 100 cc Isovue-300 COMPARISON: 12/13/2018 FINDINGS: Lower chest: Unremarkable. Liver: Unremarkable. Spleen: Unremarkable. Pancreas: Unremarkable. Gallbladder and bile ducts: Cholecystectomy Kidneys: Bilateral parapelvic renal cysts. Adrenal glands: Unremarkable. GI tract: Unremarkable. Appendix is normal. Vascular structures: Unremarkable. Lymph nodes: Right inguinal adenopathy.. Miscellaneous: Present in the right inguinal region extending along the adjacent ventral abdominal wall are thin-walled fluid collections measuring 2.5 centimeter x 1.4 centimeter, 2.5 centimeter x 1.3 centimeter and 3.0 centimeter x 2.0 centimeter. Findings consistent with abscess. A significant adjacent inflammatory stranding. Small fat containing umbilical hernia. Pelvic Organs: Unremarkable. Bones: Grade 1 anterolisthesis of L4 over L5. IMPRESSION: Present in the right inguinal region extending along the adjacent ventral abdominal wall are three thin-walled fluid collections measuring 2.5 centimeter x 1.4 centimeter, 2.5 centimeter x 1.3 centimeter and 3.0 centimeter x 2.0 centimeter. Findings consistent with abscess. Significant adjacent inflammatory stranding. Cholecystectomy. Bilateral parapelvic renal cysts. Dictated by Mikye Pérez MD @ 12/28/2018 4:16:27 PM Please note that all CT scans at this facility use dose modulation, iterative reconstruction, and/or weight-based dosing when appropriate to reduce radiation dose to as low as reasonably achievable. Dictated by: Mikey Pérez MD @ 12/28/2018 16:17:07 (Electronically Signed)
== END 2018-12-28 18:45 | disposition home or self-care (01) ==
LOC: JP.ED 13:40
DX: T81.43XA Infection following a procedure, organ and space surgical site, initial encounter (principal); L02.211 Cutaneous abscess of abdominal wall; I10 Essential (primary) hypertension; I25.2 Old myocardial infarction; Z86.73 Personal history of transient ischemic attack (TIA), and cerebral infarction without residual deficits; Z87.891 Personal history of nicotine dependence; Z79.82 Long term (current) use of aspirin; Z79.899 Other long term (current) drug therapy; Z88.1 Allergy status to other antibiotic agents; Z88.8 Allergy status to other drugs, medicaments and biological substances; Z88.7 Allergy status to serum and vaccine; Z91.09 Other allergy status, other than to drugs and biological substances
CPT/HCPCS: 36415; 74177; 80053; 85025; 85610; 86140; 99283; 99284-25

== ENCOUNTER → 2018-12-29 | Day surgery (SDC) | payer MEDICARE, BC ==
[~2018-12-29] MED LIST: Acetaminophen/HYDROcodone 325-5 MG Tab PO PRN; Bacitracin Oint 1 GM U/D Packet ONE; Bupivacaine 0.5% 50 ML MDV ONE; Ertapenem 1 GM in Sodium Chloride 0.9% 100 ML IV ONE; Lidocaine 1% 4 ML ONE; Lidocaine 1% with EPINEPHrine 1:100,000 50 ML MDV ONE; Propofol 200 MG/20 ML SDV ONE; Sodium Chloride 0.9% 1,000 ML IV SCH; fentaNYL 100 MCG/2 ML SDV ONE
--- NOTE | 2018-12-29 08:43 | EDM.PDOC ---
ED HPI GENERAL MEDICAL PROBLEM - General Chief Complaint: Wound Recheck Stated Complaint: INFECTED STENT Time Seen by Provider: 12/29/18 08:20 Source of Information: Reports: Patient, EMS History Limitations: Reports: No Limitations - History of Present Illness INITIAL COMMENTS - FREE TEXT/NARRATIVE: 83-year-old female who had a recent vascular procedure in the right groin presented yesterday with swelling and pain and found to have some abscesses in the right groin. She was treated with oral clindamycin, she returns today by ambulance because the wound is draining fairly profusely. She still having pain but no fevers or chills. No nausea or vomiting. Onset: Gradual Location: Reports: Lower Extremity, Right Associated Symptoms: Denies: Chest Pain, Fever/Chills, Headaches, Nausea/ Vomiting, Shortness of Breath - Related Data Allergies Allergy/AdvReac Type Severity Reaction Status Date / Time aluminum hydroxide Allergy Unknown Cannot Verified 12/29/18 07:56 [From Maalox Maximum Remember Strength] amlodipine Allergy Unknown Cannot Verified 12/29/18 07:56 Remember atorvastatin Allergy Unknown Cannot Verified 12/29/18 07:56 Remember azithromycin Allergy Unknown Cannot Verified 12/29/18 07:56 Remember bumetanide Allergy Unknown Cannot Verified 12/29/18 07:56 Remember celecoxib Allergy Unknown Cannot Verified 12/29/18 07:56 Remember cephalexin [Cephalexin] Allergy Unknown Cannot Verified 12/29/18 07:56 Remember chromium Allergy Unknown Cannot Verified 12/29/18 07:56 Remember ciprofloxacin [From Cipro] Allergy Unknown Cannot Verified 12/29/18 07:56 Remember ciprofloxacin HCl Allergy Unknown Cannot Verified 12/29/18 07:56 [From Cipro] Remember codeine Allergy Unknown Cannot Verified 12/29/18 07:56 Remember copper [Copper] Allergy Unknown Cannot Verified 12/29/18 07:56 Remember Corticosteroids Allergy Unknown Cannot Verified 12/29/18 07:56 (Glucocorticoids) Remember dipyridamole Allergy Unknown Cannot Verified 12/29/18 07:56 Remember esomeprazole Allergy Unknown Cannot Verified 12/29/18 07:56 Remember ezetimibe Allergy Unknown Cannot Verified 12/29/18 07:56 Remember fenofibrate nanocrystallized Allergy Unknown Cannot Verified 12/29/18 07:56 [From Tricor] Remember fenofibrate,micronized Allergy Unknown Cannot Verified 12/29/18 07:56 [From Tricor] Remember fexofenadine Allergy Unknown Cannot Verified 12/29/18 07:56 Remember furosemide Allergy Unknown Cannot Verified 12/29/18 07:56 Remember hydrochlorothiazide Allergy Unknown Rash Verified 12/29/18 07:56 lansoprazole [From Prevacid] Allergy Unknown Cannot Verified 12/29/18 07:56 Remember lisinopril Allergy Unknown Cannot Verified 12/29/18 07:56 Remember magnesium hydroxide Allergy Unknown Cannot Verified 12/29/18 07:56 [From Maalox Maximum Remember Strength] neomycin [Neomycin] Allergy Unknown Cannot Verified 12/29/18 07:56 Remember niacin Allergy Unknown Cannot Verified 12/29/18 07:56 Remember nicotine Allergy Unknown Cannot Verified 12/29/18 07:56 Remember omeprazole Allergy Unknown Cannot Verified 12/29/18 07:56 Remember pravastatin Allergy Unknown Cannot Verified 12/29/18 07:56 Remember rosuvastatin calcium Allergy Unknown Cannot Verified 12/29/18 07:56 [From Crestor] Remember simethicone Allergy Unknown Cannot Verified 12/29/18 07:56 [From Maalox Maximum Remember Strength] Sulfa (Sulfonamide Allergy Unknown Cannot Verified 12/29/18 07:56 Antibiotics) Remember tetanus toxoid, adsorbed Allergy Unknown Cannot Verified 12/29/18 07:56 Remember venlafaxine Allergy Unknown Cannot Verified 12/29/18 07:56 Remember amoxicillin [From Augmentin] Allergy Rash Verified 12/29/18 07:56 carboxymethylcellulose sodium Allergy Cannot Verified 12/29/18 07:56 [From Refresh Tears] Remember cetirizine HCl [From Zyrtec] Allergy Cannot Verified 12/29/18 07:56 Remember clavulanic acid Allergy Rash Verified 12/29/18 07:56 [From Augmentin] colesevelam HCl Allergy Cannot Verified 12/29/18 07:56 [From WelChol] Remember dexamethasone [From TobraDex] Allergy Cannot Verified 12/29/18 07:56 Remember doxycycline Allergy Other Verified 12/29/18 07:56 Influenza Virus Vaccines Allergy Hives Verified 12/29/18 07:56 Prsittm-Uro-Kzp Reductase Allergy Cannot Verified 12/29/18 07:56 Inhibitor Remember tobramycin [From TobraDex] Allergy Cannot Verified 12/29/18 07:56 Remember hydromorphone HCl AdvReac Intermediate Nausea and Verified 12/29/18 07:56 [From Dilaudid] Vomiting morphine AdvReac Unknown Nausea and Verified 12/29/18 07:56 Vomiting clindamycin HCl AdvReac Diarrhea Verified 12/29/18 07:56 [From Cleocin] clindamycin palmitate HCl AdvReac Diarrhea Verified 12/29/18 07:56 [From Cleocin] clindamycin phosphate AdvReac Diarrhea Verified 12/29/18 07:56 [From Cleocin] Home Meds: Home Meds Aspirin 81 mg PO DAILY 04/26/13 [History] Clopidogrel Bisulfate [Clopidogrel] 75 mg PO DAILY 04/26/13 [History] Famotidine [Pepcid] 20 mg PO BID 04/26/13 [History] Metoprolol Tartrate [Lopressor] 25 mg PO BID 04/26/13 [History] Nitroglycerin [Nitrostat] 0.4 mg SL ASDIRECTED PRN 04/26/13 [History] Acetaminophen [Tylenol] 325 mg PO Q4HR PRN 10/24/14 [History] Fluticasone Propionate [Flonase] 2 sprays INH DAILY PRN 12/27/16 [History] Albuterol Sulfate [Albuterol Sulfate Hfa] 2 puff IH Q4H PRN 12/12/18 [History] Ezetimibe [Zetia] 10 mg PO DAILY 12/12/18 [History] Furosemide [Lasix] 40 mg PO DAILY PRN 12/12/18 [History] Lactase [Lactase Enzyme] 3,000 unit PO TID PRN 12/12/18 [History] Polyethylene Glycol 3350 [MiraLAX] 17 gm PO DAILY PRN 12/12/18 [History] Past Medical History HEENT History: Reports: Cataract, Impaired Vision, Sinusitis Other HEENT History: wear glasses Cardiovascular History: Reports: Automatic Implantable Cardioverter Defibrillators, Blood Clots/VTE/DVT, CAD, High Cholesterol, Hypertension, DC, Stents, Other (See Below) Other Cardiovascular History: defib. 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: , Prolapsed Uterus Musculoskeletal History: Reports: Arthritis, Fracture, Other (See Below) Other Musculoskeletal History: right carpal tunnel Neurological History: Reports: Concussion, CVA, Migraines, TIA Endocrine/Metabolic History: Reports: Obesity/BMI 30+ Hematologic History: Reports: Anticoagulation Therapy, Blood Transfusion(s) - Infectious Disease History Infectious Disease History: Reports: Chicken Pox - Past Surgical History Head Surgeries/Procedures: Reports: None HEENT Surgical History: Reports: Cataract Surgery Cardiovascular Surgical History: Reports: Carotid Endarterectomy, Coronary Artery Stent Respiratory Surgical History: Reports: None GI Surgical History: Reports: Cholecystectomy, EGD Female Surgical History: Reports: Hysterectomy, Other (See Below) Other Female Surgeries/Procedures: partial hysterectomy Endocrine Surgical History: Reports: None Neurological Surgical History: Reports: None Musculoskeletal Surgical History: Reports: Carpal Tunnel Dermatological Surgical History: Reports: None Social & Family History - Family History Family Medical History: Noncontributory - Tobacco Use Smoking Status *Q: Former Smoker Used Tobacco, but Quit: Yes Month/Year Tobacco Last Used: 2004 - Caffeine Use Caffeine Use: Reports: Coffee Caffeine Use Comment: 3 daily - Recreational Drug Use Recreational Drug Use: No ED ROS GENERAL - Review of Systems Review Of Systems: See Below Constitutional: Reports: Malaise. Denies: Fever, Chills Respiratory: Denies: Shortness of Breath Cardiovascular: Denies: Chest Pain GI/Abdominal: Reports: Abdominal Pain (Right lower quadrant near the groin) Neurological: Reports: No Symptoms ED EXAM, SKIN/RASH Exam: See Below Exam Limited By: No Limitations General Appearance: Alert, No Apparent Distress Respiratory/Chest: No Respiratory Distress Cardiovascular: Regular Rate, Rhythm GI/Abdominal: Soft, Other (Some tenderness to palpation across the lower abdomen , especially the right side around the draining wound) Neurological: Alert, Oriented Psychiatric: Anxious Course - Vital Signs Last Recorded V/S: Last Vital Signs Temp 96 F 12/29/18 11:34 Pulse 93 12/29/18 12:00 Resp 16 12/29/18 12:00 BP 128/53 L 12/29/18 12:00 Pulse Ox 95 12/29/18 11:45 - Orders/Labs/Meds Orders: Medication Orders Hydrocodone Bitart/Acetaminophen ([place] 325-5 Mg) 1 tab PO Q4H PRN PRN Reason: Pain Last Admin: 12/29/18 12:05 Dose: 1 tab Sodium Chloride (Normal Saline) 1,000 mls @ 250 mls/hr IV ASDIRECTED GUILLE Last Admin: 12/29/18 08:40 Dose: 250 mls/hr Labs: Laboratory Tests 12/29/18 12/29/18 Range/Units 09:32 09:32 WBC 9.8 (4.5-11.0) K/uL RBC 3.96 (3.30-5.50) M/uL Hgb 11.5 L (12.0-15.0) g/dL Hct 36.9 (36.0-48.0) % MCV 93 (80-98) fL MCH 29 (27-31) pg MCHC 31 L (32-36) % Plt Count 360 (150-400) K/uL Neut % (Auto) 79 H (36-66) % Lymph % (Auto) 7 L (24-44) % [place] % (Auto) 12 H (2-6) % Eos % (Auto) 1 L (2-4) % Baso % (Auto) 0 (0-1) % Sodium 139 L (140-148) mmol/L Potassium 3.5 L (3.6-5.2) mmol/L Chloride 104 (100-108) mmol/L Carbon Dioxide 28 (21-32) mmol/L Anion Gap 10.5 (5.0-14.0) mmol/L BUN 13 (7-18) mg/dL Creatinine 0.8 (0.6-1.0) mg/dL Est Cr Clr Drug Dosing 40.66 mL/min Estimated GFR (MDRD) > 60 (>60) Glucose 96 (74-106) mg/dL Calcium 9.2 (8.5-10.1) mg/dL Meds: Medications Generic Name Dose Route Start Last Admin Trade Name Freq PRN Reason Stop Dose Admin Hydrocodone Bitart/Acetaminophen 1 tab 12/29/18 11:56 12/29/18 12:05 [place] 325-5 Mg PO 1 tab Q4H PRN Administration Pain Sodium Chloride 1,000 mls @ 250 mls/hr 12/29/18 08:30 12/29/18 08:40 Normal Saline IV 250 mls/hr ASDIRECTED GUILLE Administration Discontinued Medications Generic Name Dose Route Start Last Admin Trade Name Freq PRN Reason Stop Dose Admin Bacitracin Confirm 12/29/18 10:57 12/29/18 12:21 Bacitracin Oint 1 Gm Administered 12/29/18 10:58 1 dose Dose Administration 1 dose .ROUTE .STK-MED ONE Bupivacaine HCl Confirm 12/29/18 09:44 12/29/18 12:22 Marcaine 0.5% Administered 12/29/18 09:45 4 ml Dose Administration 50 ml .ROUTE .STK-MED ONE Fentanyl Confirm 12/29/18 09:53 Sublimaze Administered 12/29/18 09:54 Dose 100 mcg .ROUTE .STK-MED ONE Ertapenem 1 gm/ Sodium 100 mls @ 200 mls/hr 12/29/18 10:00 12/29/18 09:49 Chloride IV 12/29/18 10:29 200 mls/hr ONETIME ONE Administration Lidocaine HCl Confirm 12/29/18 09:21 Xylocaine-Mpf 1% Administered 12/29/18 09:22 Dose 4 mls @ as directed .ROUTE .STK-MED ONE Lidocaine/Epinephrine Confirm 12/29/18 09:44 12/29/18 12:22 Xylocaine 1% With Epinephrine 1:100,000 Administered 12/29/18 09:45 4 ml Dose Administration 50 ml .ROUTE .STK-MED ONE Propofol Confirm 12/29/18 09:53 Diprivan 20 Ml Administered 12/29/18 09:54 Dose 200 mg .ROUTE .STK-MED ONE - Re-Assessments/Exams Free Text/Narrative Re-Assessment/Exam: 12/29/18 08:42 Labs were reviewed from yesterday. External pressure around the wound opening was applied and some significant purulent odorous drainage was expelled. A culture was obtained. Condition was discussed with Dr. Keller and Dr. Johnson, patient will be admitted for surgical consultation and likely treatment. Departure - Departure Time of Disposition: 10:30 Disposition: Home, Self-Care 01 Clinical Impression: Abscess after procedure - Discharge Information
[2018-12-29 12:17] VITALS: BP 128/53
--- NOTE | 2018-12-29 13:43 | OR ---
DATE OF PROCEDURE: 12/29/2018 SURGEON: Imer Johnson MD PROCEDURE: Right groin exploration. FINDINGS: Abscess, right groin, multiple. COMPLICATION: None. HEAD OF MUSIC: None. INDICATIONS: An 83-year-old female who underwent a carotid stenting in the facility via right groin access. She was sent to the emergency room multiple times with concern for infection. Ultrasound showed abscess. RISKS: Risks, benefits, alternatives, and limitations including, but not limited to infection, bleeding, and injury to vascular structures were explained to the patient, who wished to proceed. PROCEDURE IN DETAIL: The patient was placed in supine position. The groin was prepped and draped. The exploration was commenced by opening the wound with a 15 blade. Multiple abscesses were noted. This was then cultured and thoroughly irrigated with 1 L of irrigation. One 0.25-inch iodoform gauze was then placed and dressings were applied. The patient tolerated the procedure well. Imer Johnson MD /[id number]
== END ==
LOC: JP.ED 07:50 → JP.SDS 09:17 → JP.ED 11:39
PROVIDERS: ATTEND Surgery
DX: L76.82 Other postprocedural complications of skin and subcutaneous tissue (principal); L02.214 Cutaneous abscess of groin; I25.10 Atherosclerotic heart disease of native coronary artery without angina pectoris; I10 Essential (primary) hypertension; I25.2 Old myocardial infarction; E78.00 Pure hypercholesterolemia, unspecified; Z88.8 Allergy status to other drugs, medicaments and biological substances; Z88.1 Allergy status to other antibiotic agents; Z88.6 Allergy status to analgesic agent; Z88.5 Allergy status to narcotic agent; Z88.0 Allergy status to penicillin; Z88.7 Allergy status to serum and vaccine; Z95.5 Presence of coronary angioplasty implant and graft; Z95.810 Presence of automatic (implantable) cardiac defibrillator; Z87.891 Personal history of nicotine dependence; Z79.82 Long term (current) use of aspirin; Z79.02 Long term (current) use of antithrombotics/antiplatelets; Z79.899 Other long term (current) drug therapy
CPT/HCPCS: 10061; 36415; 80048; 85025; 87070; 87075; 87077; 87186; 87205; 96361; 96365; 99283; A9270; J1335; J2001; J2704; J3010; J3490; J7030; 10060

== ENCOUNTER 2019-03-05 13:53 | Emergency (ER) | payer MEDICARE, BC ==
[2019-03-05] MEDS ORDERED: Sodium Chloride 0.9% 10 ML Syringe FLUSH PRN ×2 (13:55→14:10)
[2019-03-05 14:01] VITALS: BP 158/116; PULSE 83
--- NOTE | 2019-03-05 14:07 | CT ---
Head wo Cont CLINICAL HISTORY: Stroke protocol COMPARISON: None TECHNIQUE: Transverse scans were obtained from the base of the skull through the vertex without IV contrast on a multislice, multidetector CT scanner. Auto dosage reduction and iterative reconstruction techniques employed. FINDINGS: No focal abnormal parenchymal density is identified.. There is no mass effect, hemorrhage, or extraaxial collection. The basal cisterns and sulci over the convexities are prominent. This is particularly over the frontal lobes. The ventricles are normal for age. IMPRESSION: Moderate atrophy Very prominent extra-axial spaces over the frontal lobes. An old bilateral subdural hygroma is not excluded. No focal lesion or acute hemorrhage
--- NOTE | 2019-03-05 14:09 | EDM.PDOC ---
ED HPI GENERAL MEDICAL PROBLEM - General Chief Complaint: Neuro Symptoms/Deficits Stated Complaint: MEDICAL VIA [facility] Time Seen by Provider: 03/05/19 14:03 Source of Information: Reports: Patient, EMS History Limitations: Reports: Physical Impairment, Other (speech difficulty) - History of Present Illness INITIAL COMMENTS - FREE TEXT/NARRATIVE: Alert 83 yo female with acute onset right arm, leg, facial and speech deficits. Patient had a mild headache which started around 12:30 pm. Patient noted weakness in right arm greater than leg. Patient contacted her daughter whom noted patient's speech was difficult. Daughter called EMS regarding acute stroke transport. EMS brought to ER quick visualization exam consistent with EMS report. NIH 4-[address] Head no obvious acute head bleed to explain symptoms. Patient's medication list is reviewed which includes Plavix and ASA without additional anticoagulants. Patient lives independently in a assisted living facility. Patient's CODE STATUS: FULL CODE. PCP Dr Lay at [facility]. Son Fausto Pringle: or Daughter: Darius Spencer . - Related Data Allergies Allergy/AdvReac Type Severity Reaction Status Date / Time aluminum hydroxide Allergy Unknown Cannot Verified 01/05/19 13:28 [From Maalox Maximum Remember Strength] amlodipine Allergy Unknown Cannot Verified 01/05/19 13:28 Remember atorvastatin Allergy Unknown Cannot Verified 01/05/19 13:28 Remember azithromycin Allergy Unknown Cannot Verified 01/05/19 13:28 Remember bumetanide Allergy Unknown Cannot Verified 01/05/19 13:28 Remember celecoxib Allergy Unknown Cannot Verified 01/05/19 13:28 Remember cephalexin [Cephalexin] Allergy Unknown Cannot Verified 01/05/19 13:28 Remember chromium Allergy Unknown Cannot Verified 01/05/19 13:28 Remember ciprofloxacin [From Cipro] Allergy Unknown Cannot Verified 01/05/19 13:28 Remember ciprofloxacin HCl Allergy Unknown Cannot Verified 01/05/19 13:28 [From Cipro] Remember codeine Allergy Unknown Cannot Verified 01/05/19 13:28 Remember copper [Copper] Allergy Unknown Cannot Verified 01/05/19 13:28 Remember Corticosteroids Allergy Unknown Cannot Verified 01/05/19 13:28 (Glucocorticoids) Remember dipyridamole Allergy Unknown Cannot Verified 01/05/19 13:28 Remember esomeprazole Allergy Unknown Cannot Verified 01/05/19 13:28 Remember ezetimibe Allergy Unknown Cannot Verified 01/05/19 13:28 Remember fenofibrate nanocrystallized Allergy Unknown Cannot Verified 01/05/19 13:28 [From Tricor] Remember fenofibrate,micronized Allergy Unknown Cannot Verified 01/05/19 13:28 [From Tricor] Remember fexofenadine Allergy Unknown Cannot Verified 01/05/19 13:28 Remember furosemide Allergy Unknown Cannot Verified 01/05/19 13:28 Remember hydrochlorothiazide Allergy Unknown Rash Verified 01/05/19 13:28 lansoprazole [From Prevacid] Allergy Unknown Cannot Verified 01/05/19 13:28 Remember lisinopril Allergy Unknown Cannot Verified 01/05/19 13:28 Remember magnesium hydroxide Allergy Unknown Cannot Verified 01/05/19 13:28 [From Maalox Maximum Remember Strength] neomycin [Neomycin] Allergy Unknown Cannot Verified 01/05/19 13:28 Remember niacin Allergy Unknown Cannot Verified 01/05/19 13:28 Remember nicotine Allergy Unknown Cannot Verified 01/05/19 13:28 Remember omeprazole Allergy Unknown Cannot Verified 01/05/19 13:28 Remember pravastatin Allergy Unknown Cannot Verified 01/05/19 13:28 Remember rosuvastatin calcium Allergy Unknown Cannot Verified 01/05/19 13:28 [From Crestor] Remember simethicone Allergy Unknown Cannot Verified 01/05/19 13:28 [From Maalox Maximum Remember Strength] Sulfa (Sulfonamide Allergy Unknown Cannot Verified 01/05/19 13:28 Antibiotics) Remember tetanus toxoid, adsorbed Allergy Unknown Cannot Verified 01/05/19 13:28 Remember venlafaxine Allergy Unknown Cannot Verified 01/05/19 13:28 Remember amoxicillin [From Augmentin] Allergy Rash Verified 01/05/19 13:28 carboxymethylcellulose sodium Allergy Cannot Verified 01/05/19 13:28 [From Refresh Tears] Remember cetirizine HCl [From Zyrtec] Allergy Cannot Verified 01/05/19 13:28 Remember clavulanic acid Allergy Rash Verified 01/05/19 13:28 [From Augmentin] colesevelam HCl Allergy Cannot Verified 01/05/19 13:28 [From WelChol] Remember dexamethasone [From TobraDex] Allergy Cannot Verified 01/05/19 13:28 Remember doxycycline Allergy Other Verified 01/05/19 13:28 Influenza Virus Vaccines Allergy Hives Verified 01/05/19 13:28 Ldhorxs-Lva-Sdm Reductase Allergy Cannot Verified 01/05/19 13:28 Inhibitor Remember tobramycin [From TobraDex] Allergy Cannot Verified 01/05/19 13:28 Remember hydromorphone HCl AdvReac Intermediate Nausea and Verified 01/05/19 13:28 [From Dilaudid] Vomiting morphine AdvReac Unknown Nausea and Verified 01/05/19 13:28 Vomiting clindamycin HCl AdvReac Diarrhea Verified 01/05/19 13:28 [From Cleocin] clindamycin palmitate HCl AdvReac Diarrhea Verified 01/05/19 13:28 [From Cleocin] clindamycin phosphate AdvReac Diarrhea Verified 01/05/19 13:28 [From Cleocin] Home Meds: Home Meds Aspirin 81 mg PO DAILY 04/26/13 [History] Clopidogrel Bisulfate [Clopidogrel] 75 mg PO DAILY 04/26/13 [History] Famotidine [Pepcid] 20 mg PO BID 04/26/13 [History] Metoprolol Tartrate [Lopressor] 25 mg PO BID 04/26/13 [History] Nitroglycerin [Nitrostat] 0.4 mg SL ASDIRECTED PRN 04/26/13 [History] Acetaminophen [Tylenol] 325 mg PO Q4HR PRN 10/24/14 [History] Fluticasone Propionate [Flonase] 2 sprays INH DAILY PRN 12/27/16 [History] Albuterol Sulfate [Albuterol Sulfate Hfa] 2 puff IH Q4H PRN 12/12/18 [History] Ezetimibe [Zetia] 10 mg PO DAILY 12/12/18 [History] Furosemide [Lasix] 40 mg PO DAILY PRN 12/12/18 [History] Lactase [Lactase Enzyme] 3,000 unit PO TID PRN 12/12/18 [History] Polyethylene Glycol 3350 [MiraLAX] 17 gm PO DAILY PRN 12/12/18 [History] Past Medical History HEENT History: Reports: Cataract, Impaired Vision, Sinusitis Other HEENT History: wear glasses Cardiovascular History: Reports: Automatic Implantable Cardioverter Defibrillators, Blood Clots/VTE/DVT, CAD, High Cholesterol, Hypertension, NC, Stents, Other (See Below) Other Cardiovascular History: defib. Respiratory History: Reports: Bronchitis, Recurrent, Pneumonia, Recurrent, SOB Other Respiratory History: wears oxygen at home on a prn basis Gastrointestinal History: Reports: Cholelithiasis, PUD Genitourinary History: Reports: None HOSE TENDER History: Reports: , Prolapsed Uterus Musculoskeletal History: Reports: Arthritis, Fracture, Other (See Below) Other Musculoskeletal History: right carpal tunnel Neurological History: Reports: Concussion, CVA, Migraines, TIA Endocrine/Metabolic History: Reports: Obesity/BMI 30+ Hematologic History: Reports: Anticoagulation Therapy, Blood Transfusion(s) - Infectious Disease History Infectious Disease History: Reports: Chicken Pox - Past Surgical History Head Surgeries/Procedures: Reports: None HEENT Surgical History: Reports: Cataract Surgery Cardiovascular Surgical History: Reports: Carotid Endarterectomy, Coronary Artery Stent Respiratory Surgical History: Reports: None GI Surgical History: Reports: Cholecystectomy, EGD Female Surgical History: Reports: Hysterectomy, Other (See Below) Other Female Surgeries/Procedures: partial hysterectomy Endocrine Surgical History: Reports: None Neurological Surgical History: Reports: None Musculoskeletal Surgical History: Reports: Carpal Tunnel Dermatological Surgical History: Reports: None Social & Family History - Family History Family Medical History: Noncontributory - Caffeine Use Caffeine Use: Reports: Coffee Caffeine Use Comment: 3 daily ED ROS GENERAL - Review of Systems Review Of Systems: Unable To Obtain ED EXAM, NEURO - Physical Exam Exam: See Below Exam Limited By: Physical Impairment General Appearance: Alert, WD/WN, Anxious, Mild Distress, Other (able to answer yes and no questions and details with significant difficulty ) Eye Exam: Bilateral Eye: EOMI, PERRL Ears: Normal External Exam, Normal Canal, Hearing Grossly Normal, Normal TMs Nose: Normal Inspection, Normal Mucosa, No Blood Throat/Mouth: Normal Inspection (asymmetric smile noted), Normal Lips, Normal Teeth, Normal Gums, Normal Oropharynx, Normal Voice, No Airway Compromise Head Exam: Normocephalic Neck: Normal Inspection, Supple, Full Range of Motion Respiratory/Chest: No Respiratory Distress, Lungs Clear, Normal Breath Sounds Cardiovascular: Normal Peripheral Pulses GI/Abdominal: Soft, Non-Tender Neurological: Alert (NIH 4-5 Right pronator drift, right leg weakness, mild right facil droop/asymmetry and difficulty understanding speach. If patient concentrates she is able to give short answers and was able to sign her name btu very difficult) Extremities: Normal Inspection, Non-Tender, No Pedal Edema, Normal Capillary Refill, Limited Range of Motion (right leg and arm weakness) Psychiatric: Anxious Skin Exam: Warm, Dry, Intact, Normal Color, No Rash Course - Vital Signs Last Recorded V/S: Last Vital Signs Temp 36.2 C 03/05/19 14:15 Pulse 83 03/05/19 14:15 Resp 16 03/05/19 14:15 BP 158/116 H 03/05/19 14:15 Pulse Ox 97 03/05/19 14:15 - Orders/Labs/Meds Orders: Active Orders 24 hr Category Date Time Status Assess Neurological Status [RC] CONTINUOUS Care 03/05/19 14:10 Ordered Blood Glucose Check, Bedside [RC] STAT Care 03/05/19 14:10 Active Cardiac Monitoring [RC] .As Directed Care 03/05/19 13:55 Active Communication Order [RC] STAT Care 03/05/19 14:10 Ordered EKG Documentation Completion [RC] ASDIRECTED Care 03/05/19 13:58 Active Height and Weight [RC] UPON Care 03/05/19 14:10 Ordered NIH Stroke Scale [RC] Q15M Care 03/05/19 14:10 Ordered NIH Stroke Scale [RC] STAT Care 03/05/19 14:10 Active Nursing Bedside Swallow Screen [RC] STAT Care 03/05/19 14:10 Active Oxygen Therapy, ED [RC] ASDIRECTED Care 03/05/19 14:10 Active Peripheral IV Care [RC] . DIRECTED Care 03/05/19 13:58 Active Peripheral IV Care [RC] . DIRECTED Care 03/05/19 14:14 Active Vital Signs [RC] PFP Care 03/05/19 13:55 Active Vital Signs [RC] Q15M Care 03/05/19 14:10 Active Peripheral IV Insertion Adult [OM.PC] Stat Oth 03/05/19 14:10 Ordered Peripheral IV Insertion Adult [OM.PC] Stat Oth 03/05/19 14:10 Ordered Peripheral IV Insertion Adult [OM.PC] Urgent Oth 03/05/19 13:55 Ordered Resuscitation Status Stat Resus Stat 03/05/19 14:10 Ordered EKG 12 Lead [EK] Routine Ther 03/05/19 13:56 Ordered Labs: Laboratory Tests 03/05/19 03/05/19 03/05/19 Range/Units 14:10 14:13 14:13 WBC 5.1 (4.5-11.0) K/uL RBC 4.86 (3.30-5.50) M/uL Hgb 13.7 D (12.0-15.0) g/dL Hct 44.0 (36.0-48.0) % MCV 91 (80-98) fL MCH 28 (27-31) pg MCHC 31 L (32-36) % Plt Count 300 (150-400) K/uL Neut % (Auto) 54 (36-66) % Lymph % (Auto) 28 (24-44) % Hendry % (Auto) 12 H (2-6) % Eos % (Auto) 5 H (2-4) % Baso % (Auto) 0 (0-1) % PT 10.0 (9.5-12.0) sec INR 0.92 (0.80-1.20) APTT 23.5 L (27.0-36.0) sec Sodium 144 (140-148) mmol/L Potassium 3.4 L (3.6-5.2) mmol/L Chloride 106 (100-108) mmol/L Carbon Dioxide 32 (21-32) mmol/L Anion Gap 9.4 (5.0-14.0) mmol/L BUN 10 (7-18) mg/dL Creatinine 0.9 (0.6-1.0) mg/dL Est Cr Clr Drug Dosing 36.14 mL/min Estimated GFR (MDRD) 60 (>60) Glucose 116 H (74-106) mg/dL Calcium 9.0 (8.5-10.1) mg/dL Total Bilirubin 0.3 (0.2-1.0) mg/dL AST 24 (15-37) U/L ALT 20 (12-78) U/L Alkaline Phosphatase 134 H (46-116) U/L Troponin I (0.000-0.056) ng/mL Total Protein 7.2 (6.4-8.2) g/dL Albumin 3.3 L (3.4-5.0) g/dL Globulin 3.9 H (2.3-3.5) g/dL Albumin/Globulin Ratio 0.9 L (1.2-2.2) 03/05/19 Range/Units 14:13 WBC (4.5-11.0) K/uL RBC (3.30-5.50) M/uL Hgb (12.0-15.0) g/dL Hct (36.0-48.0) % MCV (80-98) fL MCH (27-31) pg MCHC (32-36) % Plt Count (150-400) K/uL Neut % (Auto) (36-66) % Lymph % (Auto) (24-44) % Hendry % (Auto) (2-6) % Eos % (Auto) (2-4) % Baso % (Auto) (0-1) % PT (9.5-12.0) sec INR (0.80-1.20) APTT (27.0-36.0) sec Sodium (140-148) mmol/L Potassium (3.6-5.2) mmol/L Chloride (100-108) mmol/L Carbon Dioxide (21-32) mmol/L Anion Gap (5.0-14.0) mmol/L BUN (7-18) mg/dL Creatinine (0.6-1.0) mg/dL Est Cr Clr Drug Dosing mL/min Estimated GFR (MDRD) (>60) Glucose (74-106) mg/dL Calcium (8.5-10.1) mg/dL Total Bilirubin (0.2-1.0) mg/dL AST (15-37) U/L ALT (12-78) U/L Alkaline Phosphatase (46-116) U/L Troponin I < 0.017 (0.000-0.056) ng/mL Total Protein (6.4-8.2) g/dL Albumin (3.4-5.0) g/dL Globulin (2.3-3.5) g/dL Albumin/Globulin Ratio (1.2-2.2) Meds: Medications Discontinued Medications Generic Name Dose Route Start Last Admin Trade Name Freq PRN Reason Stop Dose Admin Alteplase, Recombinant 6 mg 03/05/19 14:20 03/05/19 14:24 Activase IVPUSH 03/05/19 14:21 6 mg ONETIME ONE Administration Alteplase, Recombinant 57 mg/ 57 mls @ 57 mls/hr 03/05/19 14:30 03/05/19 14: 25 Premix IV 03/05/19 15:29 57 mls/hr ONETIME ONE Administration Sodium Chloride 500 mls @ 100 mls/hr 03/05/19 14:10 Normal Saline IV 03/05/19 19:09 BOLUS ONE Sodium Chloride 10 ml 03/05/19 13:55 Saline Flush FLUSH ASDIRECTED PRN Keep Vein Open Sodium Chloride 10 ml 03/05/19 14:10 Saline Flush FLUSH ASDIRECTED PRN Keep Vein Open - Re-Assessments/Exams Free Text/Narrative Re-Assessment/Exam: Call [facility] for Acute Ischemic Stroke. Last known well between 1-1: 30 pm. Patient had a mild headache and noted weakness in her arm and leg. Patient called her daughter whom called EMS regarding Acute stroke concerns. Radha accepted transfer to ER for assessment and CTA for further evaluation and treatment. 03/05/19 14:03 Patient is able to answer yes and no to questions. Patient tries very hard to give details. Patient had right groin surgery in December and Carotid surgery in November due to previous ischemic stroke. 03/05/19 14:10 [facility] and is ready for transport pending initiation of TPA and IV access. 03/05/19 14:22 Free Text/Narrative Re-Assessment/Exam: Spoke with daughter Darius regarding time of presentation with mild headache. Patient actually text her daughter Darius stating she thought she was having another stroke. Darius states the text came to her around 1:15/1:30. Patient was able to contact EMS for stroke concerns. Darius living in [facility] and will be driving to [place] to see mother this evening. Darius will be contacting her brother regarding stroke concerns and transfer to . I spoke to Darius about contraindications regarding TPA and mother consented and wanted TPA initiated per Stroke Neurology recommendation. Darius agreed that her mother would want the TPA given based on current ability with activities of daily living. Darius was grateful for the phone call. 03/05/19 14:33 Daughter: Darius Spencer . Departure - Departure Time of Disposition: 14:30 Disposition: DC/Tfer to Acute Hospital 02 Clinical Impression: Cerebrovascular accident (CVA), Limb weakness - Discharge Information Referrals: Edvin Lay MD [Primary Care Provider] - Forms: ED Department Discharge - My Orders Last 24 Hours: My Active Orders 03/05/19 13:55 Cardiac Monitoring [RC] .As Directed Vital Signs [RC] PFP Peripheral IV Insertion Adult [OM.PC] Urgent 03/05/19 13:56 EKG 12 Lead [EK] Routine 03/05/19 13:58 EKG Documentation Completion [RC] ASDIRECTED Peripheral IV Care [RC] . DIRECTED 03/05/19 14:10 Assess Neurological Status [RC] CONTINUOUS Blood Glucose Check, Bedside [RC] STAT Communication Order [RC] STAT Height and Weight [RC] UPON NIH Stroke Scale [RC] Q15M NIH Stroke Scale [RC] STAT Nursing Bedside Swallow Screen [RC] STAT Oxygen Therapy, ED [RC] ASDIRECTED Vital Signs [RC] Q15M Peripheral IV Insertion Adult [OM.PC] Stat Peripheral IV Insertion Adult [OM.PC] Stat Resuscitation Status Stat 03/05/19 14:14 Peripheral IV Care [RC] . DIRECTED - Assessment/Plan Last 24 Hours: My Active Orders 03/05/19 13:55 Cardiac Monitoring [RC] .As Directed Vital Signs [RC] PFP Peripheral IV Insertion Adult [OM.PC] Urgent 03/05/19 13:56 EKG 12 Lead [EK] Routine 03/05/19 13:58 EKG Documentation Completion [RC] ASDIRECTED Peripheral IV Care [RC] . DIRECTED 03/05/19 14:10 Assess Neurological Status [RC] CONTINUOUS Blood Glucose Check, Bedside [RC] STAT Communication Order [RC] STAT Height and Weight [RC] UPON NIH Stroke Scale [RC] Q15M NIH Stroke Scale [RC] STAT Nursing Bedside Swallow Screen [RC] STAT Oxygen Therapy, ED [RC] ASDIRECTED Vital Signs [RC] Q15M Peripheral IV Insertion Adult [OM.PC] Stat Peripheral IV Insertion Adult [OM.PC] Stat Resuscitation Status Stat 03/05/19 14:14 Peripheral IV Care [RC] . DIRECTED
[2019-03-05] MEDS ORDERED: Sodium Chloride 0.9% 500 ML IV ONE (14:10)
[2019-03-05] MEDS ORDERED: ALTEPLASE IV ONE (14:30)
== END 2019-03-05 14:41 ==
LOC: JP.ED 13:53
DX: I63.9 Cerebral infarction, unspecified (principal); M62.81 Muscle weakness (generalized); I10 Essential (primary) hypertension; I25.10 Atherosclerotic heart disease of native coronary artery without angina pectoris; I25.2 Old myocardial infarction; E78.00 Pure hypercholesterolemia, unspecified; M19.90 Unspecified osteoarthritis, unspecified site; E66.9 Obesity, unspecified; Z68.28 Body mass index [BMI] 28.0-28.9, adult; Z86.718 Personal history of other venous thrombosis and embolism; Z88.1 Allergy status to other antibiotic agents; Z88.6 Allergy status to analgesic agent; Z88.5 Allergy status to narcotic agent; Z88.0 Allergy status to penicillin; Z79.82 Long term (current) use of aspirin; Z79.899 Other long term (current) drug therapy; Z79.01 Long term (current) use of anticoagulants
CPT/HCPCS: 36415; 70450; 80053; 84484; 85025; 85610; 85730; 93005; 96374; 99285; J2997; 93010; 99284

== ENCOUNTER 2019-12-14 17:36 | Emergency (ER) | payer MEDICARE, BC ==
--- NOTE | 2019-12-14 18:26 | EDM.PDOC ---
<Nola Jung - Last Filed: 12/14/19 22:55> ED HPI GENERAL MEDICAL PROBLEM - General Chief Complaint: Chest Pain Stated Complaint: [facility] Time Seen by Provider: 12/14/19 18:00 - Related Data Allergies Allergy/AdvReac Type Severity Reaction Status Date / Time aluminum hydroxide Allergy Unknown Cannot Verified 12/14/19 20:54 [From Maalox Maximum Remember Strength] amlodipine Allergy Unknown Cannot Verified 12/14/19 20:54 Remember atorvastatin Allergy Unknown Cannot Verified 12/14/19 20:54 Remember azithromycin Allergy Unknown Cannot Verified 12/14/19 20:54 Remember bumetanide Allergy Unknown Cannot Verified 12/14/19 20:54 Remember celecoxib Allergy Unknown Cannot Verified 12/14/19 20:54 Remember cephalexin [Cephalexin] Allergy Unknown Cannot Verified 12/14/19 20:54 Remember chromium Allergy Unknown Cannot Verified 12/14/19 20:54 Remember ciprofloxacin [From Cipro] Allergy Unknown Cannot Verified 12/14/19 20:54 Remember ciprofloxacin HCl Allergy Unknown Cannot Verified 12/14/19 20:54 [From Cipro] Remember codeine Allergy Unknown Cannot Verified 12/14/19 20:54 Remember copper [Copper] Allergy Unknown Cannot Verified 12/14/19 20:54 Remember Corticosteroids Allergy Unknown Cannot Verified 12/14/19 20:54 (Glucocorticoids) Remember dipyridamole Allergy Unknown Cannot Verified 12/14/19 20:54 Remember esomeprazole Allergy Unknown Cannot Verified 12/14/19 20:54 Remember ezetimibe Allergy Unknown Cannot Verified 12/14/19 20:54 Remember fenofibrate nanocrystallized Allergy Unknown Cannot Verified 12/14/19 20:54 [From Tricor] Remember fenofibrate,micronized Allergy Unknown Cannot Verified 12/14/19 20:54 [From Tricor] Remember fexofenadine Allergy Unknown Cannot Verified 12/14/19 20:54 Remember furosemide Allergy Unknown Cannot Verified 12/14/19 20:54 Remember hydrochlorothiazide Allergy Unknown Rash Verified 12/14/19 20:54 lansoprazole [From Prevacid] Allergy Unknown Cannot Verified 12/14/19 20:54 Remember lisinopril Allergy Unknown Cannot Verified 12/14/19 20:54 Remember magnesium hydroxide Allergy Unknown Cannot Verified 12/14/19 20:54 [From Maalox Maximum Remember Strength] neomycin [Neomycin] Allergy Unknown Cannot Verified 12/14/19 20:54 Remember niacin Allergy Unknown Cannot Verified 12/14/19 20:54 Remember nicotine Allergy Unknown Cannot Verified 12/14/19 20:54 Remember omeprazole Allergy Unknown Cannot Verified 12/14/19 20:54 Remember pravastatin Allergy Unknown Cannot Verified 12/14/19 20:54 Remember rosuvastatin calcium Allergy Unknown Cannot Verified 12/14/19 20:54 [From Crestor] Remember simethicone Allergy Unknown Cannot Verified 12/14/19 20:54 [From Maalox Maximum Remember Strength] Sulfa (Sulfonamide Allergy Unknown Cannot Verified 12/14/19 20:54 Antibiotics) Remember tetanus toxoid, adsorbed Allergy Unknown Cannot Verified 12/14/19 20:54 Remember venlafaxine Allergy Unknown Cannot Verified 12/14/19 20:54 Remember amoxicillin [From Augmentin] Allergy Rash Verified 12/14/19 20:54 carboxymethylcellulose sodium Allergy Cannot Verified 12/14/19 20:54 [From Refresh Tears] Remember cetirizine HCl [From Zyrtec] Allergy Cannot Verified 12/14/19 20:54 Remember clavulanic acid Allergy Rash Verified 12/14/19 20:54 [From Augmentin] colesevelam HCl Allergy Cannot Verified 12/14/19 20:54 [From WelChol] Remember dexamethasone [From TobraDex] Allergy Cannot Verified 12/14/19 20:54 Remember doxycycline Allergy Other Verified 12/14/19 20:54 Influenza Virus Vaccines Allergy Hives Verified 12/14/19 20:54 [id number] Reductase Allergy Cannot Verified 12/14/19 20:54 Inhibitor Remember tobramycin [From TobraDex] Allergy Cannot Verified 12/14/19 20:54 Remember hydromorphone HCl AdvReac Intermediate Nausea and Verified 12/14/19 20:54 [From Dilaudid] Vomiting morphine AdvReac Unknown Nausea and Verified 12/14/19 20:54 Vomiting clindamycin HCl AdvReac Diarrhea Verified 12/14/19 20:54 [From Cleocin] clindamycin palmitate HCl AdvReac Diarrhea Verified 12/14/19 20:54 [From Cleocin] clindamycin phosphate AdvReac Diarrhea Verified 12/14/19 20:54 [From Cleocin] Home Meds: Home Meds Aspirin 81 mg PO DAILY 04/26/13 [History] Clopidogrel Bisulfate [Clopidogrel] 75 mg PO DAILY 04/26/13 [History] Famotidine [Pepcid] 20 mg PO BID 04/26/13 [History] Metoprolol Tartrate [Lopressor] 25 mg PO BID 04/26/13 [History] Nitroglycerin [Nitrostat] 0.4 mg SL ASDIRECTED PRN 04/26/13 [History] Acetaminophen [Tylenol] 325 mg PO Q4HR PRN 10/24/14 [History] Furosemide [Lasix] 40 mg PO DAILY PRN 12/12/18 [History] Lactase [Lactase Enzyme] 3,000 unit PO TID PRN 12/12/18 [History] polyethylene glycoL 3350 [MiraLAX] 17 gm PO DAILY PRN 12/12/18 [History] Course - Vital Signs Last Recorded V/S: Last Vital Signs Temp 97.5 F 12/14/19 17:47 Pulse 71 12/14/19 22:36 Resp 20 12/14/19 22:36 BP 112/68 12/14/19 22:36 Pulse Ox 96 12/14/19 22:36 - Orders/Labs/Meds Labs: Laboratory Tests 12/14/19 12/14/19 12/14/19 Range/Units 18:00 18:00 20:14 WBC 4.5 (4.5-11.0) K/uL RBC 4.72 (3.30-5.50) M/uL Hgb 13.4 (12.0-15.0) g/dL Hct 43.3 (36.0-48.0) % MCV 92 (80-98) fL MCH 28 (27-31) pg MCHC 31 L (32-36) % Plt Count 259 (150-400) K/uL Neut % (Auto) 56 (36-66) % Lymph % (Auto) 24 (24-44) % Trigg % (Auto) 16 H (2-6) % Eos % (Auto) 3 (2-4) % Baso % (Auto) 0 (0-1) % Sodium 142 (140-148) mmol/L Potassium 4.3 (3.6-5.2) mmol/L Chloride 106 (100-108) mmol/L Carbon Dioxide 27 (21-32) mmol/L Anion Gap 8.7 (5.0-14.0) mmol/L BUN 23 H D (7-18) mg/dL Creatinine 1.1 H (0.6-1.0) mg/dL Est Cr Clr Drug Dosing 29.04 mL/min Estimated GFR (MDRD) 47 L (>60) Glucose 109 H (74-106) mg/dL Calcium 8.8 (8.5-10.1) mg/dL Magnesium (1.8-2.4) mg/dL Total Bilirubin 0.4 (0.2-1.0) mg/dL AST 21 (15-37) U/L ALT 25 (12-78) U/L Alkaline Phosphatase 109 (46-116) U/L Troponin I < 0.017 (0.000-0.056) ng/mL Total Protein 6.9 (6.4-8.2) g/dL Albumin 3.3 L (3.4-5.0) g/dL Globulin 3.6 H (2.3-3.5) g/dL Albumin/Globulin Ratio 0.9 L (1.2-2.2) Urine Color Yellow (YELLOW) Urine Appearance Clear (CLEAR) Urine pH 6.0 (5.0-8.0) Ur Specific [place] 1.015 (1.008-1.030) Urine Protein Negative (NEGATIVE) mg/dL Urine Glucose (UA) Negative (NEGATIVE) mg/dL Urine Ketones Negative (NEGATIVE) mg/dL Urine Occult Blood Negative (NEGATIVE) Urine Nitrite Negative (NEGATIVE) Urine Bilirubin Negative (NEGATIVE) Urine Urobilinogen 0.2 (0.2-1.0) EU/dL Ur Leukocyte Esterase Trace H (NEGATIVE) Urine RBC Not seen (0-5) Urine WBC Not seen (0-5) Ur Epithelial Cells Not seen Urine Bacteria Not seen 12/14/19 12/14/19 Range/Units 21:00 21:00 WBC (4.5-11.0) K/uL RBC (3.30-5.50) M/uL Hgb (12.0-15.0) g/dL Hct (36.0-48.0) % MCV (80-98) fL MCH (27-31) pg MCHC (32-36) % Plt Count (150-400) K/uL Neut % (Auto) (36-66) % Lymph % (Auto) (24-44) % Trigg % (Auto) (2-6) % Eos % (Auto) (2-4) % Baso % (Auto) (0-1) % Sodium (140-148) mmol/L Potassium (3.6-5.2) mmol/L Chloride (100-108) mmol/L Carbon Dioxide (21-32) mmol/L Anion Gap (5.0-14.0) mmol/L BUN (7-18) mg/dL Creatinine (0.6-1.0) mg/dL Est Cr Clr Drug Dosing mL/min Estimated GFR (MDRD) (>60) Glucose (74-106) mg/dL Calcium (8.5-10.1) mg/dL Magnesium 1.9 (1.8-2.4) mg/dL Total Bilirubin (0.2-1.0) mg/dL AST (15-37) U/L ALT (12-78) U/L Alkaline Phosphatase (46-116) U/L Troponin I < 0.017 (0.000-0.056) ng/mL Total Protein (6.4-8.2) g/dL Albumin (3.4-5.0) g/dL Globulin (2.3-3.5) g/dL Albumin/Globulin Ratio (1.2-2.2) Urine Color (YELLOW) Urine Appearance (CLEAR) Urine pH (5.0-8.0) Ur Specific [place] (1.008-1.030) Urine Protein (NEGATIVE) mg/dL Urine Glucose (UA) (NEGATIVE) mg/dL Urine Ketones (NEGATIVE) mg/dL Urine Occult Blood (NEGATIVE) Urine Nitrite (NEGATIVE) Urine Bilirubin (NEGATIVE) Urine Urobilinogen (0.2-1.0) EU/dL Ur Leukocyte Esterase (NEGATIVE) Urine RBC (0-5) Urine WBC (0-5) Ur Epithelial Cells Urine Bacteria Meds: Medications Discontinued Medications Generic Name Dose Route Start Last Admin Trade Name Freq PRN Reason Stop Dose Admin Sodium Chloride 1,000 mls @ 152 mls/hr 12/14/19 19:45 12/14/19 19:43 Normal Saline IV 152 mls/hr ASDIRECTED GUILLE Administration Nitroglycerin 0.4 mg 12/14/19 19:11 12/14/19 19:26 Nitrostat SL 12/14/19 19:12 0.4 mg ONETIME ONE Administration - Re-Assessments/Exams Free Text/Narrative Re-Assessment/Exam: 12/14/19 22:24 pt had a second trop and this was normal. She was given another nitro and her pressure did go down to a 3. She has good vital signs. She has persistent pressure in spite of normal trops. Departure - Departure Time of Disposition: 22:26 Disposition: Home, Self-Care 01 Condition: Fair Clinical Impression: Chest pain, atypical, Ischemic heart disease, Cardiac defibrillator in place, History of cardiac arrhythmia - Discharge Information Referrals: PCP,None [Primary Care Provider] - Forms: ED Department Discharge Care Plan Goals: transfer to . Sepsis Event Note - Focused Exam Date Exam was Performed: 12/14/19 Time Exam was Performed: 22:55 <Edvin Cuevas - Last Filed: 12/17/19 10:41> ED HPI GENERAL MEDICAL PROBLEM - General Source of Information: Reports: Patient, EMS History Limitations: Reports: No Limitations - History of Present Illness INITIAL COMMENTS - FREE TEXT/NARRATIVE: 84-year-old female brought in by ambulance due to chest pressure. She has a long history of coronary artery disease and has a pacemaker defibrillator. She has been doing well without illness, denies any recent shortness of breath or chest pain or trauma. Tonight she was sitting at a chair when she suddenly "blacked out" where she had to reach out and grab the edge of the table, this was followed by pain that was substernal radiating to both shoulders and into her neck and gave her a horrible headache. She then called the ambulance, when they arrived she was still having discomfort so they gave her two low-dose aspirin, she had already taken 2 aspirin, and in route they did an EKG which showed no acute changes. They gave her 3 nitro which did not help much. After arrival she calmed down and she was very anxious and her chest pain started to improve. No fevers or chills, no cough, she does have some discomfort with breathing but no shortness of breath. She thinks she got a little diaphoretic when this happened, no nausea or vomiting. EKG done on arrival looks similar to EMSs EKG, no acute changes or ST elevation or depression. Atrial pacing is working adequately. Vitals were stable. Onset: Sudden Duration: Hour(s): (Onset was 4:00, 2 hours ago) Location: Reports: Chest, Back, Other (Bilateral shoulders) Quality: Reports: Pressure Associated Symptoms: Reports: Chest Pain, Diaphoresis, Malaise, Weakness. Denies: Fever/Chills Chest Pain Score (Numeric/FACES): 5 Past Medical History HEENT History: Reports: Cataract, Impaired Vision, Sinusitis Other HEENT History: wear glasses Cardiovascular History: Reports: Automatic Implantable Cardioverter Defibrillators, Blood Clots/VTE/DVT, CAD, High Cholesterol, Hypertension, [place], Stents, Other (See Below) Other Cardiovascular History: defib. Respiratory History: Reports: Bronchitis, Recurrent, Pneumonia, Recurrent, SOB Other Respiratory History: wears oxygen at home on a prn basis Gastrointestinal History: Reports: Cholelithiasis, PUD Genitourinary History: Reports: None [employer] History: Reports: , Prolapsed Uterus Musculoskeletal History: Reports: Arthritis, Fracture, Other (See Below) Other Musculoskeletal History: right carpal tunnel Neurological History: Reports: Concussion, CVA, Migraines, TIA Endocrine/Metabolic History: Reports: Obesity/BMI 30+ Hematologic History: Reports: Anticoagulation Therapy, Blood Transfusion(s) - Infectious Disease History Infectious Disease History: Reports: Chicken Pox - Past Surgical History Head Surgeries/Procedures: Reports: None HEENT Surgical History: Reports: Cataract Surgery Cardiovascular Surgical History: Reports: Carotid Endarterectomy, Coronary Artery Stent Respiratory Surgical History: Reports: None GI Surgical History: Reports: Cholecystectomy, EGD Female Surgical History: Reports: Hysterectomy, Other (See Below) Other Female Surgeries/Procedures: partial hysterectomy Endocrine Surgical History: Reports: None Neurological Surgical History: Reports: None Musculoskeletal Surgical History: Reports: Carpal Tunnel Dermatological Surgical History: Reports: None Social & Family History - Family History Family Medical History: Noncontributory - Tobacco Use Smoking Status *Q: Never Smoker - Caffeine Use Caffeine Use: Reports: None Caffeine Use Comment: 3 daily ED ROS GENERAL - Review of Systems Review Of Systems: See Below Constitutional: Denies: Fever, Chills HEENT: Reports: Vision Change (Vision went "black" briefly prior to the pain starting) Respiratory: Reports: Shortness of Breath, Pleuritic Chest Pain (Some pain with breathing). Denies: Cough Cardiovascular: Reports: Chest Pain (Brief shortness of breath). Denies: Palpitations GI/Abdominal: Reports: No Symptoms : Reports: No Symptoms Musculoskeletal: Reports: Shoulder Pain (Bilateral), Back Pain Skin: Reports: Diaphoresis (Mild diaphoresis which has resolved) Neurological: Reports: Headache Psychiatric: Reports: Anxiety ED EXAM, GENERAL - Physical Exam Exam: See Below Exam Limited By: No Limitations General Appearance: Alert, No Apparent Distress, Anxious (Initially very anxious but much better now) Eye Exam: Bilateral Eye: Normal Inspection Head: Atraumatic Neck: Supple, Non-Tender Respiratory/Chest: Lungs Clear Cardiovascular: Regular Rate, Rhythm, No Murmur. No: Extra Beats GI/Abdominal: Soft, Non-Tender Extremities: Normal Inspection. No: Pedal Edema Neurological: Alert, Oriented, No Motor/Sensory Deficits Psychiatric: Anxious Skin Exam: Warm, Dry EKG INTERPRETATION EKG Date: 12/14/19 Time: 17:35 Rhythm: Other (Atrial paced rhythm) QRS: Other (Q waves in inferior leads) ST-T: Normal Course - Orders/Labs/Meds Meds: Medications Discontinued Medications Generic Name Dose Route Start Last Admin Trade Name Shaye PRN Reason Stop Dose Admin Sodium Chloride 1,000 mls @ 152 mls/hr 12/14/19 19:45 12/14/19 19:43 Normal Saline IV 152 mls/hr ASDIRECTED GUILLE Administration Nitroglycerin 0.4 mg 12/14/19 19:11 12/14/19 19:26 Nitrostat SL 12/14/19 19:12 0.4 mg ONETIME ONE Administration - Re-Assessments/Exams Free Text/Narrative Re-Assessment/Exam: 12/14/19 18:28 EKG compared to EMS was unchanged, patient rapidly improved without treatment after arriving to the emergency room. CBC, CMP, troponin were obtained as well as a one-view portable chest x-ray. Care was turned over to Dr. Jung. 12/14/19 18:36 Troponin is 0, CBC CMP otherwise unremarkable. Chest x-ray is pending, a repeat troponin will likely need to be done in a few hours to rule out [place]. Sepsis Event Note - Evaluation Sepsis Screening Result: No Definite Risk - Focused Exam Date Exam was Performed: 12/17/19 Time Exam was Performed: 10:41
[2019-12-14] MEDS ORDERED: Nitroglycerin 0.4 MG Tab.SL SL ONE (19:11)
[2019-12-14] MEDS ORDERED: Sodium Chloride 0.9% 1,000 ML IV SCH (19:45)
[2019-12-14 22:36] VITALS: BP 112/68; PULSE 71
--- NOTE | 2019-12-17 09:18 | CR ---
CHEST: Portable 12/14/2019 at 6:48 PM CLINICAL HISTORY:Chest pressure COMPARISON:2018 FINDINGS: The heart size, pulmonary vascularity and hilar structures are normal. Patient has a permanent cardiac pacer defibrillator. There are atherosclerotic changes in the aorta. No infiltrate effusion or pneumothorax is seen. IMPRESSION: No acute cardiopulmonary process.
== END 2019-12-15 01:29 | disposition home or self-care (01) ==
LOC: JP.ED 17:36
DX: I25.9 Chronic ischemic heart disease, unspecified (principal); E66.9 Obesity, unspecified; M19.90 Unspecified osteoarthritis, unspecified site; Z95.810 Presence of automatic (implantable) cardiac defibrillator; Z91.048 Other nonmedicinal substance allergy status; Z88.8 Allergy status to other drugs, medicaments and biological substances; Z88.1 Allergy status to other antibiotic agents; Z88.5 Allergy status to narcotic agent; Z91.09 Other allergy status, other than to drugs and biological substances; Z79.82 Long term (current) use of aspirin; Z79.899 Other long term (current) drug therapy; I10 Essential (primary) hypertension; I25.2 Old myocardial infarction; Z99.81 Dependence on supplemental oxygen; Z86.73 Personal history of transient ischemic attack (TIA), and cerebral infarction without residual deficits; Z79.02 Long term (current) use of antithrombotics/antiplatelets
CPT/HCPCS: 36415; 71045; 80053; 81001; 83735; 84484; 85025; 93005; 99285; A9270; J7030; 93010

== ENCOUNTER 2020-02-08 10:14 | Emergency (ER) | payer MEDICARE, BC ==
[2020-02-08] MEDS ORDERED: Aspirin 325 MG Tab.EC PO ONE (10:18)
[2020-02-08] MEDS: Nitroglycerin 0.4 MG Tab.SL SL PRN ×2 (10:27→11:26)
--- NOTE | 2020-02-08 10:59 | EDM.PDOC ---
ED HPI GENERAL MEDICAL PROBLEM - General Chief Complaint: Chest Pain Stated Complaint: [facility] Time Seen by Provider: 02/08/20 10:54 Source of Information: Reports: Patient History Limitations: Reports: No Limitations - History of Present Illness INITIAL COMMENTS - FREE TEXT/NARRATIVE: pt developed chest pain this am. She got up and was sitting at the table eating breakfast. She was having trouble seeing and did feel strange. She then had her defibrillator went off. She then felt better. Shortly after that she developed. The chest pain. She does admit to be quite anxious after the defribrilator went off. She is not havng alot of chest pain at this time. The defribrillator is stable, Her rhythm does look good. Onset: Today, Sudden Duration: Hour(s): Location: Reports: Chest, Generalized Associated Symptoms: Reports: Other ( visual changes and she felt strange before she was defriblated. ) Chest Pain Score (Numeric/FACES): 6 - Related Data Allergies Allergy/AdvReac Type Severity Reaction Status Date / Time aluminum hydroxide Allergy Unknown Cannot Verified 02/08/20 10:28 [From Maalox Maximum Remember Strength] amlodipine Allergy Unknown Cannot Verified 02/08/20 10:28 Remember atorvastatin Allergy Unknown Cannot Verified 02/08/20 10:28 Remember azithromycin Allergy Unknown Cannot Verified 02/08/20 10:28 Remember bumetanide Allergy Unknown Cannot Verified 02/08/20 10:28 Remember celecoxib Allergy Unknown Cannot Verified 02/08/20 10:28 Remember cephalexin [Cephalexin] Allergy Unknown Cannot Verified 02/08/20 10:28 Remember chromium Allergy Unknown Cannot Verified 02/08/20 10:28 Remember ciprofloxacin [From Cipro] Allergy Unknown Cannot Verified 02/08/20 10:28 Remember ciprofloxacin HCl Allergy Unknown Cannot Verified 02/08/20 10:28 [From Cipro] Remember codeine Allergy Unknown Cannot Verified 02/08/20 10:28 Remember copper [Copper] Allergy Unknown Cannot Verified 02/08/20 10:28 Remember Corticosteroids Allergy Unknown Cannot Verified 02/08/20 10:28 (Glucocorticoids) Remember dipyridamole Allergy Unknown Cannot Verified 02/08/20 10:28 Remember esomeprazole Allergy Unknown Cannot Verified 02/08/20 10:28 Remember ezetimibe Allergy Unknown Cannot Verified 02/08/20 10:28 Remember fenofibrate nanocrystallized Allergy Unknown Cannot Verified 02/08/20 10:28 [From Tricor] Remember fenofibrate,micronized Allergy Unknown Cannot Verified 02/08/20 10:28 [From Tricor] Remember fexofenadine Allergy Unknown Cannot Verified 02/08/20 10:28 Remember furosemide Allergy Unknown Cannot Verified 02/08/20 10:28 Remember hydrochlorothiazide Allergy Unknown Rash Verified 02/08/20 10:28 lansoprazole [From Prevacid] Allergy Unknown Cannot Verified 02/08/20 10:28 Remember lisinopril Allergy Unknown Cannot Verified 02/08/20 10:28 Remember magnesium hydroxide Allergy Unknown Cannot Verified 02/08/20 10:28 [From Maalox Maximum Remember Strength] neomycin [Neomycin] Allergy Unknown Cannot Verified 02/08/20 10:28 Remember niacin Allergy Unknown Cannot Verified 02/08/20 10:28 Remember nicotine Allergy Unknown Cannot Verified 02/08/20 10:28 Remember omeprazole Allergy Unknown Cannot Verified 02/08/20 10:28 Remember pravastatin Allergy Unknown Cannot Verified 02/08/20 10:28 Remember rosuvastatin calcium Allergy Unknown Cannot Verified 02/08/20 10:28 [From Crestor] Remember simethicone Allergy Unknown Cannot Verified 02/08/20 10:28 [From Maalox Maximum Remember Strength] Sulfa (Sulfonamide Allergy Unknown Cannot Verified 02/08/20 10:28 Antibiotics) Remember tetanus toxoid, adsorbed Allergy Unknown Cannot Verified 02/08/20 10:28 Remember venlafaxine Allergy Unknown Cannot Verified 02/08/20 10:28 Remember amoxicillin [From Augmentin] Allergy Rash Verified 02/08/20 10:28 carboxymethylcellulose sodium Allergy Cannot Verified 02/08/20 10:28 [From Refresh Tears] Remember cetirizine HCl [From Zyrtec] Allergy Cannot Verified 02/08/20 10:28 Remember clavulanic acid Allergy Rash Verified 02/08/20 10:28 [From Augmentin] colesevelam HCl Allergy Cannot Verified 02/08/20 10:28 [From WelChol] Remember dexamethasone [From TobraDex] Allergy Cannot Verified 02/08/20 10:28 Remember doxycycline Allergy Other Verified 02/08/20 10:28 Influenza Virus Vaccines Allergy Hives Verified 02/08/20 10:28 Ogcnadu-Opw-Cjn Reductase Allergy Cannot Verified 02/08/20 10:28 Inhibitor Remember tobramycin [From TobraDex] Allergy Cannot Verified 02/08/20 10:28 Remember hydromorphone HCl AdvReac Intermediate Nausea and Verified 02/08/20 10:28 [From Dilaudid] Vomiting morphine AdvReac Unknown Nausea and Verified 02/08/20 10:28 Vomiting clindamycin HCl AdvReac Diarrhea Verified 02/08/20 10:28 [From Cleocin] clindamycin palmitate HCl AdvReac Diarrhea Verified 02/08/20 10:28 [From Cleocin] clindamycin phosphate AdvReac Diarrhea Verified 02/08/20 10:28 [From Cleocin] Home Meds: Home Meds Aspirin 81 mg PO DAILY 04/26/13 [History] Clopidogrel Bisulfate [Clopidogrel] 75 mg PO DAILY 04/26/13 [History] Famotidine [Pepcid] 20 mg PO BID 04/26/13 [History] Metoprolol Tartrate [Lopressor] 25 mg PO BID 04/26/13 [History] Nitroglycerin [Nitrostat] 0.4 mg SL ASDIRECTED PRN 04/26/13 [History] Acetaminophen [Tylenol] 325 mg PO Q4HR PRN 10/24/14 [History] Furosemide [Lasix] 40 mg PO DAILY PRN 12/12/18 [History] Lactase [Lactase Enzyme] 3,000 unit PO TID PRN 12/12/18 [History] polyethylene glycoL 3350 [MiraLAX] 17 gm PO DAILY PRN 12/12/18 [History] Past Medical History HEENT History: Reports: Cataract, Impaired Vision, Sinusitis Other HEENT History: wear glasses Cardiovascular History: Reports: Automatic Implantable Cardioverter Defibrillators, Blood Clots/VTE/DVT, CAD, High Cholesterol, Hypertension, VT, Stents, Other (See Below) Other Cardiovascular History: defib. Respiratory History: Reports: Bronchitis, Recurrent, Pneumonia, Recurrent, SOB Other Respiratory History: wears oxygen at home on a prn basis Gastrointestinal History: Reports: Cholelithiasis, PUD Genitourinary History: Reports: None [employer]RO[employer] REPA[employer]ER History: Reports: , Prolapsed Uterus Musculoskeletal History: Reports: Arthritis, Fracture, Other (See Below) Other Musculoskeletal History: right carpal tunnel Neurological History: Reports: Concussion, CVA, Migraines, TIA Endocrine/Metabolic History: Reports: Obesity/BMI 30+ Hematologic History: Reports: Anticoagulation Therapy, Blood Transfusion(s) - Infectious Disease History Infectious Disease History: Reports: Chicken Pox - Past Surgical History Head Surgeries/Procedures: Reports: None HEENT Surgical History: Reports: Cataract Surgery Cardiovascular Surgical History: Reports: Carotid Endarterectomy, Coronary Artery Stent Respiratory Surgical History: Reports: None GI Surgical History: Reports: Cholecystectomy, EGD Female Surgical History: Reports: Hysterectomy, Other (See Below) Other Female Surgeries/Procedures: partial hysterectomy Endocrine Surgical History: Reports: None Neurological Surgical History: Reports: None Musculoskeletal Surgical History: Reports: Carpal Tunnel Dermatological Surgical History: Reports: None Social & Family History - Family History Family Medical History: Noncontributory - Tobacco Use Smoking Status *Q: Never Smoker Second Hand Smoke Exposure: No - Caffeine Use Caffeine Use: Reports: Coffee Caffeine Use Comment: 3 daily - Recreational Drug Use Recreational Drug Use: No ED ROS GENERAL - Review of Systems Review Of Systems: See Below Constitutional: Reports: No Symptoms HEENT: Reports: Vision Change, Other Respiratory: Reports: No Symptoms Cardiovascular: Reports: Chest Pain, Other (pt did develop the chest pain after she was defibrilated. ) Endocrine: Reports: No Symptoms GI/Abdominal: Reports: No Symptoms : Reports: No Symptoms Musculoskeletal: Reports: No Symptoms Skin: Reports: No Symptoms Neurological: Reports: Dizziness, Other ( visual change. ) Hematologic/Lymphatic: Reports: No Symptoms ED EXAM, GENERAL - Physical Exam Exam: See Below Free Text/Narrative:: Pt arrived with a history of chest pain at a 7-8. She had her defibrilator went off this am and it was after that that her chest pain developed. Exam Limited By: No Limitations General Appearance: Alert, Anxious, Moderate Distress, Other (pupils are equal and reactive, ) Ears: Normal TMs Nose: Normal Inspection Throat/Mouth: Normal Inspection Head: Atraumatic Neck: Normal Inspection Respiratory/Chest: No Respiratory Distress Cardiovascular: Regular Rate, Rhythm GI/Abdominal: Soft, Non-Tender Rectal (Female) Exam: Deferred Back Exam: Normal Inspection Extremities: Normal Inspection Neurological: Alert, Oriented, Normal Cognition Psychiatric: Anxious Course - Vital Signs Last Recorded V/S: Last Vital Signs Temp 36.2 C 02/08/20 10:37 Pulse 63 02/08/20 11:14 Resp 20 02/08/20 11:14 BP 171/73 H 02/08/20 11:26 Pulse Ox 96 02/08/20 11:14 - Orders/Labs/Meds Orders: Active Orders 24 hr Category Date Time Status EKG Documentation Completion [RC] ASDIRECTED Care 02/08/20 10:18 Active Chest 1V Frontal [CR] Stat Exams 02/08/20 11:02 Taken MAGNESIUM [CHEM] Stat Lab 02/08/20 11:30 Ordered Nitroglycerin [Nitrostat] Med 02/08/20 10:20 Active 0.4 mg SL Q5M PRN EKG 12 Lead [EK] Routine Ther 02/08/20 10:18 Ordered Medication Orders Nitroglycerin (Nitrostat) 0.4 mg SL Q5M PRN PRN Reason: Chest Pain Last Admin: 02/08/20 11:26 Dose: 0.4 mg Documented by: Admin: 02/08/20 10:27 Dose: 0.4 mg Documented by: JOSLYN Labs: Laboratory Tests 02/08/20 02/08/20 02/08/20 Range/Units 10:24 10:24 10:24 WBC 5.0 (4.5-11.0) K/uL RBC 4.99 (3.30-5.50) M/uL Hgb 14.4 (12.0-15.0) g/dL Hct 45.8 (36.0-48.0) % MCV 92 (80-98) fL MCH 29 (27-31) pg MCHC 31 L (32-36) % Plt Count 251 (150-400) K/uL Neut % (Auto) 61 (36-66) % Lymph % (Auto) 21 L (24-44) % [place] % (Auto) 13 H (2-6) % Eos % (Auto) 4 (2-4) % Baso % (Auto) 1 (0-1) % Sodium 142 (140-148) mmol/L Potassium 4.3 (3.6-5.2) mmol/L Chloride 105 (100-108) mmol/L Carbon Dioxide 27 (21-32) mmol/L Anion Gap 10.4 (5.0-14.0) mmol/L BUN 16 (7-18) mg/dL Creatinine 0.9 (0.6-1.0) mg/dL Est Cr Clr Drug Dosing 35.49 mL/min Estimated GFR (MDRD) 59 L (>60) Glucose 95 (74-106) mg/dL Calcium 8.8 (8.5-10.1) mg/dL Total Bilirubin 0.3 (0.2-1.0) mg/dL AST 22 (15-37) U/L ALT 18 (12-78) U/L Alkaline Phosphatase 103 (46-116) U/L Troponin I < 0.017 (0.000-0.056) ng/mL Total Protein 6.8 (6.4-8.2) g/dL Albumin 3.1 L (3.4-5.0) g/dL Globulin 3.7 H (2.3-3.5) g/dL Albumin/Globulin Ratio 0.8 L (1.2-2.2) Meds: Medications Generic Name Dose Route Start Last Admin Trade Name Freq PRN Reason Stop Dose Admin Nitroglycerin 0.4 mg 02/08/20 10:20 02/08/20 11:26 Nitrostat SL 0.4 mg Q5M PRN Administration Chest Pain Discontinued Medications Generic Name Dose Route Start Last Admin Trade Name Freq PRN Reason Stop Dose Admin Aspirin 243 mg 02/08/20 10:18 02/08/20 10:26 Ecotrin PO 02/08/20 10:19 243 mg ONETIME ONE Administration - Re-Assessments/Exams Free Text/Narrative Re-Assessment/Exam: 02/08/20 11:35 pt did have a normal ekg and her trop was normal. She has normal electrolytes. She did have chest pain on arrival. Her trop was normal. She did receive 2 nitros and her pain is down to a 1. She is feeling much better. [facility] was called and she will be placed in observation and her pacemaker will be checked out. Departure - Departure Time of Disposition: 11:38 Disposition: DC/Tfer to Acute Hospital 02 Reason for Transfer *Q: Primary PCI Indicated Condition: Fair Clinical Impression: Cardiac arrhythmia, AICD (automatic cardioverter/defibrillator) present, Chest pain Referrals: PCP,None [Primary Care Provider] - Forms: ED Department Discharge Care Plan Goals: transfer to [facility]. Sepsis Event Note (ED) - Evaluation Sepsis Screening Result: No Definite Risk - Focused Exam Vital Signs: Vital Signs Temp Pulse Resp BP BP Pulse Ox 02/08/20 11:26 171/73 H 02/08/20 11:14 63 20 171/73 H 96 02/08/20 11:04 60 19 181/76 H 97 02/08/20 10:54 61 10 L 185/85 H 97 02/08/20 10:44 62 18 149/80 H 95 02/08/20 10:37 36.2 C 61 19 125/66 94 L 02/08/20 10:36 36.2 C 61 19 125/66 94 L 02/08/20 10:27 181/83 H 02/08/20 10:20 60 28 H 181/83 H 98 - My Orders Last 24 Hours: My Active Orders 02/08/20 10:18 EKG Documentation Completion [RC] ASDIRECTED EKG 12 Lead [EK] Routine 02/08/20 10:20 Nitroglycerin [Nitrostat] 0.4 mg SL Q5M PRN 02/08/20 11:02 Chest 1V Frontal [CR] Stat 02/08/20 11:30 MAGNESIUM [CHEM] Stat - Assessment/Plan Last 24 Hours: My Active Orders 02/08/20 10:18 EKG Documentation Completion [RC] ASDIRECTED EKG 12 Lead [EK] Routine 02/08/20 10:20 Nitroglycerin [Nitrostat] 0.4 mg SL Q5M PRN 02/08/20 11:02 Chest 1V Frontal [CR] Stat 02/08/20 11:30 MAGNESIUM [CHEM] Stat
--- NOTE | 2020-02-08 12:01 | CR ---
CHEST: Portable 02/08/2020 11:17 AM CLINICAL HISTORY:Chest pain COMPARISON:12/14/2019 FINDINGS: There is mild cardiac megaly. Patient has permanent cardiac pacer/defibrillator. There are atherosclerotic changes in the aorta.. Lungs are clear. Pulmonary vascular is normal Impression: Cardiomegaly Permanent cardiac pacer/defibrillator No acute cardiac pulmonary process.
[2020-02-08 14:24] VITALS: BP 162/66; PULSE 61
== END 2020-02-08 15:01 ==
LOC: JP.ED 10:14
DX: I49.9 Cardiac arrhythmia, unspecified (principal); Z95.810 Presence of automatic (implantable) cardiac defibrillator; I10 Essential (primary) hypertension; I25.2 Old myocardial infarction; E66.9 Obesity, unspecified; I25.10 Atherosclerotic heart disease of native coronary artery without angina pectoris; Z86.73 Personal history of transient ischemic attack (TIA), and cerebral infarction without residual deficits; Z95.5 Presence of coronary angioplasty implant and graft; Z88.8 Allergy status to other drugs, medicaments and biological substances; Z88.1 Allergy status to other antibiotic agents; Z91.048 Other nonmedicinal substance allergy status; Z88.2 Allergy status to sulfonamides; Z88.7 Allergy status to serum and vaccine; Z88.5 Allergy status to narcotic agent; Z79.82 Long term (current) use of aspirin; Z79.02 Long term (current) use of antithrombotics/antiplatelets; Z79.899 Other long term (current) drug therapy
CPT/HCPCS: 36415; 71045; 80053; 83735; 84484; 85025; 93005; 99285; A9270

== ENCOUNTER 2020-04-30 09:02 | Emergency (ER) | payer MEDICARE, BC ==
[2020-04-30] MEDS ORDERED: Sodium Chloride 0.9% 10 ML Syringe FLUSH PRN (09:03)
--- NOTE | 2020-04-30 09:20 | EDM.PDOC ---
ED HPI GENERAL MEDICAL PROBLEM - General Chief Complaint: Neuro Symptoms/Deficits Stated Complaint: STROKE Time Seen by Provider: 04/30/20 09:05 Source of Information: Reports: Patient, EMS, Old Records History Limitations: Reports: Other (patient not fully able to give hx due to dysarthria) - History of Present Illness INITIAL COMMENTS - FREE TEXT/NARRATIVE: 84 yo female who lives alone called EMS this morning when she awoke with R facial weakness. Since then her sx's have worsened to include weakness to her entire R side. Also reports a HALE. Is on Plavix currently. EMS noted HTN and increasing difficulty with speech since their arrival. Was not able to walk to the R leg weakness. Awoke about 0800h today. PHx of CVA this past January with some residual mild weakness from that. Onset: Today, Gradual Onset Date: 04/30/20 Onset Time: 08:00 Duration: Minutes:, Getting Worse Location: Reports: Head (ache), Face (numbness/difficulty speaking), Upper Extremity, Right (weakness/numbness), Lower Extremity, Right (weakness and numbness.) Quality: Reports: Ache (head) Severity: Moderate Improves with: Reports: None Worsens with: Reports: Other (uncertain) Context: Reports: Other (See HPI) Associated Symptoms: Reports: Headaches, Weakness (R sided). Denies: Confusion, Chest Pain Treatments RESIDENTIAL PROGRAM MANAGER: Reports: Other (see below) (none) - Related Data Allergies Allergy/AdvReac Type Severity Reaction Status Date / Time aluminum hydroxide Allergy Unknown Cannot Verified 04/30/20 09:23 [From Maalox Maximum Remember Strength] amlodipine Allergy Unknown Cannot Verified 04/30/20 09:23 Remember atorvastatin Allergy Unknown Cannot Verified 04/30/20 09:23 Remember azithromycin Allergy Unknown Cannot Verified 04/30/20 09:23 Remember bumetanide Allergy Unknown Cannot Verified 04/30/20 09:23 Remember celecoxib Allergy Unknown Cannot Verified 04/30/20 09:23 Remember cephalexin [Cephalexin] Allergy Unknown Cannot Verified 04/30/20 09:23 Remember chromium Allergy Unknown Cannot Verified 04/30/20 09:23 Remember ciprofloxacin [From Cipro] Allergy Unknown Cannot Verified 04/30/20 09:23 Remember ciprofloxacin HCl Allergy Unknown Cannot Verified 04/30/20 09:23 [From Cipro] Remember codeine Allergy Unknown Cannot Verified 04/30/20 09:23 Remember copper [Copper] Allergy Unknown Cannot Verified 04/30/20 09:23 Remember Corticosteroids Allergy Unknown Cannot Verified 04/30/20 09:23 (Glucocorticoids) Remember dipyridamole Allergy Unknown Cannot Verified 04/30/20 09:23 Remember esomeprazole Allergy Unknown Cannot Verified 04/30/20 09:23 Remember ezetimibe Allergy Unknown Cannot Verified 04/30/20 09:23 Remember fenofibrate nanocrystallized Allergy Unknown Cannot Verified 04/30/20 09:23 [From Tricor] Remember fenofibrate,micronized Allergy Unknown Cannot Verified 04/30/20 09:23 [From Tricor] Remember fexofenadine Allergy Unknown Cannot Verified 04/30/20 09:23 Remember furosemide Allergy Unknown Cannot Verified 04/30/20 09:23 Remember hydrochlorothiazide Allergy Unknown Rash Verified 04/30/20 09:23 lansoprazole [From Prevacid] Allergy Unknown Cannot Verified 04/30/20 09:23 Remember lisinopril Allergy Unknown Cannot Verified 04/30/20 09:23 Remember magnesium hydroxide Allergy Unknown Cannot Verified 04/30/20 09:23 [From Maalox Maximum Remember Strength] neomycin [Neomycin] Allergy Unknown Cannot Verified 04/30/20 09:23 Remember niacin Allergy Unknown Cannot Verified 04/30/20 09:23 Remember nicotine Allergy Unknown Cannot Verified 04/30/20 09:23 Remember omeprazole Allergy Unknown Cannot Verified 04/30/20 09:23 Remember pravastatin Allergy Unknown Cannot Verified 04/30/20 09:23 Remember rosuvastatin calcium Allergy Unknown Cannot Verified 04/30/20 09:23 [From Crestor] Remember simethicone Allergy Unknown Cannot Verified 04/30/20 09:23 [From Maalox Maximum Remember Strength] Sulfa (Sulfonamide Allergy Unknown Cannot Verified 04/30/20 09:23 Antibiotics) Remember tetanus toxoid, adsorbed Allergy Unknown Cannot Verified 04/30/20 09:23 Remember venlafaxine Allergy Unknown Cannot Verified 04/30/20 09:23 Remember amoxicillin [From Augmentin] Allergy Rash Verified 04/30/20 09:23 carboxymethylcellulose sodium Allergy Cannot Verified 04/30/20 09:23 [From Refresh Tears] Remember cetirizine HCl [From Zyrtec] Allergy Cannot Verified 04/30/20 09:23 Remember clavulanic acid Allergy Rash Verified 04/30/20 09:23 [From Augmentin] colesevelam HCl Allergy Cannot Verified 04/30/20 09:23 [From WelChol] Remember dexamethasone [From TobraDex] Allergy Cannot Verified 04/30/20 09:23 Remember doxycycline Allergy Other Verified 04/30/20 09:23 Influenza Virus Vaccines Allergy Hives Verified 04/30/20 09:23 Zugkcwn-Bol-Gkd Reductase Allergy Cannot Verified 04/30/20 09:23 Inhibitor Remember tobramycin [From TobraDex] Allergy Cannot Verified 04/30/20 09:23 Remember hydromorphone HCl AdvReac Intermediate Nausea and Verified 04/30/20 09:23 [From Dilaudid] Vomiting morphine AdvReac Unknown Nausea and Verified 04/30/20 09:23 Vomiting clindamycin HCl AdvReac Diarrhea Verified 04/30/20 09:23 [From Cleocin] clindamycin palmitate HCl AdvReac Diarrhea Verified 04/30/20 09:23 [From Cleocin] clindamycin phosphate AdvReac Diarrhea Verified 04/30/20 09:23 [From Cleocin] Home Meds: Home Meds Aspirin 81 mg PO DAILY 04/26/13 [History] Clopidogrel Bisulfate [Clopidogrel] 75 mg PO DAILY 04/26/13 [History] Famotidine [Pepcid] 20 mg PO BID 04/26/13 [History] Metoprolol Tartrate [Lopressor] 25 mg PO BID 04/26/13 [History] Nitroglycerin [Nitrostat] 0.4 mg SL ASDIRECTED PRN 04/26/13 [History] Acetaminophen [Tylenol] 325 mg PO Q4HR PRN 10/24/14 [History] Furosemide [Lasix] 40 mg PO DAILY PRN 12/12/18 [History] Lactase [Lactase Enzyme] 3,000 unit PO TID PRN 12/12/18 [History] polyethylene glycoL 3350 [MiraLAX] 17 gm PO DAILY PRN 12/12/18 [History] Past Medical History HEENT History: Reports: Cataract, Impaired Vision, Sinusitis Other HEENT History: wear glasses Cardiovascular History: Reports: Automatic Implantable Cardioverter Defibrillators, Blood Clots/VTE/DVT, CAD, High Cholesterol, Hypertension, [place], Stents, Other (See Below) Other Cardiovascular History: defib. Respiratory History: Reports: Bronchitis, Recurrent, Pneumonia, Recurrent, SOB Other Respiratory History: wears oxygen at home on a prn basis Gastrointestinal History: Reports: Cholelithiasis, PUD Genitourinary History: Reports: None ORCHID HAND History: Reports: , Prolapsed Uterus Musculoskeletal History: Reports: Arthritis, Fracture, Other (See Below) Other Musculoskeletal History: right carpal tunnel Neurological History: Reports: Concussion, CVA, Migraines, TIA Endocrine/Metabolic History: Reports: Obesity/BMI 30+ Hematologic History: Reports: Anticoagulation Therapy, Blood Transfusion(s) - Infectious Disease History Infectious Disease History: Reports: Chicken Pox - Past Surgical History Head Surgeries/Procedures: Reports: None HEENT Surgical History: Reports: Cataract Surgery Cardiovascular Surgical History: Reports: Carotid Endarterectomy, Coronary Artery Stent Respiratory Surgical History: Reports: None GI Surgical History: Reports: Cholecystectomy, EGD Female Surgical History: Reports: Hysterectomy, Other (See Below) Other Female Surgeries/Procedures: partial hysterectomy Endocrine Surgical History: Reports: None Neurological Surgical History: Reports: None Musculoskeletal Surgical History: Reports: Carpal Tunnel Dermatological Surgical History: Reports: None Social & Family History - Family History Family Medical History: Noncontributory - Caffeine Use Caffeine Use: Reports: Coffee Caffeine Use Comment: 3 daily ED ROS GENERAL - Review of Systems Review Of Systems: See Below Constitutional: Denies: Weakness (not generalized) HEENT: Reports: No Symptoms Respiratory: Reports: No Symptoms Cardiovascular: Reports: No Symptoms Endocrine: Reports: No Symptoms GI/Abdominal: Reports: No Symptoms : Reports: No Symptoms Musculoskeletal: Reports: No Symptoms Skin: Reports: No Symptoms Neurological: Reports: Headache, Trouble Speaking, Difficulty Walking (unable), Weakness (R sided), Change in Speech (dysarthria), Gait Disturbance (unable to walk). Denies: Confusion, Numbness, Pre-Existing Deficit, Seizure, Syncope Psychiatric: Reports: No Symptoms ED EXAM, NEURO - Physical Exam Exam: See Below Exam Limited By: No Limitations General Appearance: Alert, WD/WN, Mild Distress Eye Exam: Bilateral Eye: Normal Inspection, PERRL Ears: Normal External Exam, Normal Canal, Hearing Grossly Normal Nose: Normal Inspection, No Blood Throat/Mouth: Normal Inspection, Normal Lips, Normal Oropharynx, No Airway Compromise. No: Normal Voice Head Exam: Atraumatic, Normocephalic Neck: Normal Inspection Respiratory/Chest: No Respiratory Distress, Lungs Clear, Normal Breath Sounds, No Accessory Muscle Use Cardiovascular: Regular Rate, Rhythm, No Edema GI/Abdominal: Normal Bowel Sounds, Soft, Non-Tender, No Distention Neurological: Alert, Normal Mood/Affect, Oriented x 3. No: CN II-XII Intact, Normal Gait, No Motor/Sensory Deficits Back Exam: Normal Inspection Extremities: Normal Inspection, Normal Range of Motion, Non-Tender, No Pedal Edema Psychiatric: Normal Affect, Normal Mood Skin Exam: Warm, Dry, Intact, Normal Color, No Rash Course - Vital Signs Text/Narrative:: Called [facility] @ 0914h, Last Recorded V/S: Last Vital Signs Temp 36.4 C 04/30/20 09:29 Pulse 63 04/30/20 09:35 Resp 18 04/30/20 09:35 BP 159/83 H 04/30/20 09:35 Pulse Ox 100 04/30/20 09:35 - Orders/Labs/Meds Orders: Active Orders 24 hr Category Date Time Status Cardiac Monitoring [RC] .As Directed Care 04/30/20 09:04 Active BASIC METABOLIC PANEL,BMP [CHEM] Stat Lab 04/30/20 09:03 Ordered TROPONIN I [CHEM] Stat Lab 04/30/20 09:03 Ordered UA W/MICROSCOPIC [URIN] Stat Lab 04/30/20 09:03 Ordered Sodium Chloride 0.9% [Saline Flush] Med 04/30/20 09:03 Active 10 ml FLUSH ASDIRECTED PRN Saline Lock Insert [OM.PC] Routine Oth 04/30/20 09:03 Ordered Medication Orders Sodium Chloride (Saline Flush) 10 ml FLUSH ASDIRECTED PRN PRN Reason: Keep Vein Open Last Admin: 04/30/20 09:29 Dose: 10 ml Documented by: JOSLYN Labs: Laboratory Tests 04/30/20 Range/Units 09:03 WBC 4.4 L (4.5-11.0) K/uL RBC 4.61 (3.30-5.50) M/uL Hgb 13.7 (12.0-15.0) g/dL Hct 43.4 (36.0-48.0) % MCV 94 (80-98) fL MCH 30 (27-31) pg MCHC 32 (32-36) % Plt Count 212 (150-400) K/uL Meds: Medications Generic Name Dose Route Start Last Admin Trade Name Freq PRN Reason Stop Dose Admin Sodium Chloride 10 ml 04/30/20 09:03 04/30/20 09:29 Saline Flush FLUSH 10 ml ASDIRECTED PRN Administration Keep Vein Open Departure - Departure Time of Disposition: 09:38 Disposition: DC/Tfer to Acute Hospital 02 Condition: Serious Clinical Impression: Acute CVA (cerebrovascular accident) HTN (hypertension) Qualifiers: Hypertension type: unspecified Qualified Code(s): I10 - Essential (primary) hypertension - Discharge Information *PRESCRIPTION DRUG MONITORING PROGRAM REVIEWED*: Not Applicable *COPY OF PRESCRIPTION DRUG MONITORING REPORT IN PATIENT JACKELIN: Not Applicable Referrals: PCP,None [Primary Care Provider] - Forms: ED Department Discharge Sepsis Event Note (ED) - Focused Exam Vital Signs: Vital Signs Temp Pulse Resp BP Pulse Ox 04/30/20 09:35 63 18 159/83 H 100 04/30/20 09:29 36.4 C 74 19 175/87 H 99 04/30/20 09:17 175/87 H 99 04/30/20 09:07 36.4 C 74 19 - My Orders Last 24 Hours: My Active Orders 04/30/20 09:03 BASIC METABOLIC PANEL,BMP [CHEM] Stat TROPONIN I [CHEM] Stat UA W/MICROSCOPIC [URIN] Stat Sodium Chloride 0.9% [Saline Flush] 10 ml FLUSH ASDIRECTED PRN Saline Lock Insert [OM.PC] Routine 04/30/20 09:04 Cardiac Monitoring [RC] .As Directed - Assessment/Plan Last 24 Hours: My Active Orders 04/30/20 09:03 BASIC METABOLIC PANEL,BMP [CHEM] Stat TROPONIN I [CHEM] Stat UA W/MICROSCOPIC [URIN] Stat Sodium Chloride 0.9% [Saline Flush] 10 ml FLUSH ASDIRECTED PRN Saline Lock Insert [OM.PC] Routine 04/30/20 09:04 Cardiac Monitoring [RC] .As Directed
--- NOTE | 2020-04-30 09:21 | CT ---
Head wo Cont CLINICAL HISTORY: CVA COMPARISON: None available at this time TECHNIQUE: Transverse scans were obtained from the base of the skull through the vertex without IV contrast on a multislice, multidetector CT scanner. Auto dosage reduction and iterative reconstruction techniques employed. FINDINGS: No focal abnormal parenchymal density is identified.. There is no mass effect, or hemorrhage. The basal cisterns and sulci over the convexities are quite prominent particularly over the frontal parietal regions. The ventricles are normal for age. IMPRESSION: No evidence of hemorrhage Prominent frontal and frontoparietal extra-axial spaces. This could be atrophy alone but chronic bilateral subdural hygromas are not excluded. When prior CTs become available an addendum report will be issued
[2020-04-30 09:36] VITALS: BP 159/83; PULSE 63
== END 2020-04-30 09:35 ==
LOC: JP.ED 09:02
DX: I63.9 Cerebral infarction, unspecified (principal); I10 Essential (primary) hypertension; I25.10 Atherosclerotic heart disease of native coronary artery without angina pectoris; I25.2 Old myocardial infarction; E66.9 Obesity, unspecified; M19.90 Unspecified osteoarthritis, unspecified site; Z88.1 Allergy status to other antibiotic agents; Z88.8 Allergy status to other drugs, medicaments and biological substances; Z88.5 Allergy status to narcotic agent; Z91.048 Other nonmedicinal substance allergy status; Z88.2 Allergy status to sulfonamides; Z88.7 Allergy status to serum and vaccine; Z79.82 Long term (current) use of aspirin; Z79.02 Long term (current) use of antithrombotics/antiplatelets; Z79.899 Other long term (current) drug therapy; Z95.5 Presence of coronary angioplasty implant and graft; Z99.81 Dependence on supplemental oxygen; Z68.28 Body mass index [BMI] 28.0-28.9, adult
CPT/HCPCS: 36415; 70450; 70450-26; 80048; 84484; 85027; 99285-25

== ENCOUNTER 2020-08-12 10:45 | Emergency (ER) | payer MEDICARE, BC ==
[2020-08-12 11:04] VITALS: BP 129/72; PULSE 74
--- NOTE | 2020-08-12 11:23 | EDM.PDOC ---
ED HPI GENERAL MEDICAL PROBLEM - General Chief Complaint: General Stated Complaint: REACTION TO COVID VACCINE Time Seen by Provider: 08/12/20 11:10 Source of Information: Reports: Patient History Limitations: Reports: No Limitations - History of Present Illness INITIAL COMMENTS - FREE TEXT/NARRATIVE: 85-year-old female had a Covid vaccination 4 days ago, had some mild cold-like symptoms as a reaction and over the past 24 hours feels like there is something's caught in her throat. She is not having trouble breathing or swallowing, just feels a little lump in there and it got her concerned. She called the clinic to be checked and they sent her to the emergency room. Onset: Gradual Duration: Hour(s): (24 hours) Location: Reports: Other (Lump sensation in her throat) - Related Data Allergies Allergy/AdvReac Type Severity Reaction Status Date / Time aluminum hydroxide Allergy Unknown Cannot Verified 08/12/20 11:05 [From Maalox Maximum Remember Strength] amlodipine Allergy Unknown Cannot Verified 08/12/20 11:05 Remember atorvastatin Allergy Unknown Cannot Verified 08/12/20 11:05 Remember azithromycin Allergy Unknown Cannot Verified 08/12/20 11:05 Remember bumetanide Allergy Unknown Cannot Verified 08/12/20 11:05 Remember celecoxib Allergy Unknown Cannot Verified 08/12/20 11:05 Remember cephalexin [Cephalexin] Allergy Unknown Cannot Verified 08/12/20 11:05 Remember chromium Allergy Unknown Cannot Verified 08/12/20 11:05 Remember ciprofloxacin [From Cipro] Allergy Unknown Cannot Verified 08/12/20 11:05 Remember ciprofloxacin HCl Allergy Unknown Cannot Verified 08/12/20 11:05 [From Cipro] Remember codeine Allergy Unknown Cannot Verified 08/12/20 11:05 Remember copper [Copper] Allergy Unknown Cannot Verified 08/12/20 11:05 Remember Corticosteroids Allergy Unknown Cannot Verified 08/12/20 11:05 (Glucocorticoids) Remember dipyridamole Allergy Unknown Cannot Verified 08/12/20 11:05 Remember esomeprazole Allergy Unknown Cannot Verified 08/12/20 11:05 Remember ezetimibe Allergy Unknown Cannot Verified 08/12/20 11:05 Remember fenofibrate nanocrystallized Allergy Unknown Cannot Verified 08/12/20 11:05 [From Tricor] Remember fenofibrate,micronized Allergy Unknown Cannot Verified 08/12/20 11:05 [From Tricor] Remember fexofenadine Allergy Unknown Cannot Verified 08/12/20 11:05 Remember furosemide Allergy Unknown Cannot Verified 08/12/20 11:05 Remember hydrochlorothiazide Allergy Unknown Rash Verified 08/12/20 11:05 lansoprazole [From Prevacid] Allergy Unknown Cannot Verified 08/12/20 11:05 Remember lisinopril Allergy Unknown Cannot Verified 08/12/20 11:05 Remember magnesium hydroxide Allergy Unknown Cannot Verified 08/12/20 11:05 [From Maalox Maximum Remember Strength] neomycin [Neomycin] Allergy Unknown Cannot Verified 08/12/20 11:05 Remember niacin Allergy Unknown Cannot Verified 08/12/20 11:05 Remember nicotine Allergy Unknown Cannot Verified 08/12/20 11:05 Remember omeprazole Allergy Unknown Cannot Verified 08/12/20 11:05 Remember pravastatin Allergy Unknown Cannot Verified 08/12/20 11:05 Remember rosuvastatin calcium Allergy Unknown Cannot Verified 08/12/20 11:05 [From Crestor] Remember simethicone Allergy Unknown Cannot Verified 08/12/20 11:05 [From Maalox Maximum Remember Strength] Sulfa (Sulfonamide Allergy Unknown Cannot Verified 08/12/20 11:05 Antibiotics) Remember tetanus toxoid, adsorbed Allergy Unknown Cannot Verified 08/12/20 11:05 Remember venlafaxine Allergy Unknown Cannot Verified 08/12/20 11:05 Remember amoxicillin [From Augmentin] Allergy Rash Verified 08/12/20 11:05 carboxymethylcellulose sodium Allergy Cannot Verified 08/12/20 11:05 [From Refresh Tears] Remember cetirizine HCl [From Zyrtec] Allergy Cannot Verified 08/12/20 11:05 Remember clavulanic acid Allergy Rash Verified 08/12/20 11:05 [From Augmentin] colesevelam HCl Allergy Cannot Verified 08/12/20 11:05 [From WelChol] Remember dexamethasone [From TobraDex] Allergy Cannot Verified 08/12/20 11:05 Remember doxycycline Allergy Other Verified 08/12/20 11:05 Influenza Virus Vaccines Allergy Hives Verified 08/12/20 11:05 Onppuca-Lzo-Ofy Reductase Allergy Cannot Verified 08/12/20 11:05 Inhibitor Remember tobramycin [From TobraDex] Allergy Cannot Verified 08/12/20 11:05 Remember hydromorphone HCl AdvReac Intermediate Nausea and Verified 08/12/20 11:05 [From Dilaudid] Vomiting morphine AdvReac Unknown Nausea and Verified 08/12/20 11:05 Vomiting clindamycin HCl AdvReac Diarrhea Verified 08/12/20 11:05 [From Cleocin] clindamycin palmitate HCl AdvReac Diarrhea Verified 08/12/20 11:05 [From Cleocin] clindamycin phosphate AdvReac Diarrhea Verified 08/12/20 11:05 [From Cleocin] Home Meds: Home Meds Clopidogrel Bisulfate [Clopidogrel] 75 mg PO DAILY 04/26/13 [History] Famotidine [Pepcid] 20 mg PO BID 04/26/13 [History] Nitroglycerin [Nitrostat] 0.4 mg SL ASDIRECTED PRN 04/26/13 [History] Acetaminophen [Tylenol] 325 mg PO Q4HR PRN 10/24/14 [History] Furosemide [Lasix] 20 mg PO DAILY PRN 12/12/18 [History] Lactase [Lactase Enzyme] 3,000 unit PO TID PRN 12/12/18 [History] polyethylene glycoL 3350 [MiraLAX] 17 gm PO DAILY PRN 12/12/18 [History] Metoprolol Succinate 25 mg PO DAILY 08/12/20 [History] Past Medical History HEENT History: Reports: Cataract, Impaired Vision, Sinusitis Other HEENT History: wear glasses Cardiovascular History: Reports: Automatic Implantable Cardioverter Defibrillators, Blood Clots/VTE/DVT, CAD, High Cholesterol, Hypertension, [place], Stents, Other (See Below) Other Cardiovascular History: defib. 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: , Prolapsed Uterus Musculoskeletal History: Reports: Arthritis, Fracture, Other (See Below) Other Musculoskeletal History: right carpal tunnel Neurological History: Reports: Concussion, CVA, Migraines, TIA Endocrine/Metabolic History: Reports: Obesity/BMI 30+ Hematologic History: Reports: Anticoagulation Therapy, Blood Transfusion(s) - Infectious Disease History Infectious Disease History: Reports: Chicken Pox - Past Surgical History Head Surgeries/Procedures: Reports: None HEENT Surgical History: Reports: Cataract Surgery Cardiovascular Surgical History: Reports: Carotid Endarterectomy, Coronary Artery Stent Other Cardiovascular Surgeries/Procedures: defibulator Respiratory Surgical History: Reports: None GI Surgical History: Reports: Cholecystectomy, EGD Female Surgical History: Reports: Hysterectomy, Other (See Below) Other Female Surgeries/Procedures: partial hysterectomy Endocrine Surgical History: Reports: None Neurological Surgical History: Reports: None Musculoskeletal Surgical History: Reports: Carpal Tunnel Dermatological Surgical History: Reports: None Social & Family History - Family History Family Medical History: No Pertinent Family History - Tobacco Use Tobacco Use Status *Q: Never Tobacco User - Caffeine Use Caffeine Use: Reports: Coffee Caffeine Use Comment: 3 daily ED ROS GENERAL - Review of Systems Review Of Systems: See Below Constitutional: Denies: Fever, Chills, Malaise HEENT: Denies: Throat Pain (No pain) Respiratory: Denies: Shortness of Breath Cardiovascular: Denies: Chest Pain GI/Abdominal: Denies: Nausea, Vomiting Skin: Reports: No Symptoms ED EXAM, GENERAL - Physical Exam Exam: See Below Exam Limited By: No Limitations General Appearance: Alert, No Apparent Distress Eye Exam: Bilateral Eye: Normal Inspection Throat/Mouth: Normal Inspection, Normal Voice Head: Atraumatic Neck: No: Lymphadenopathy (R), Lymphadenopathy (L) Respiratory/Chest: Lungs Clear Course - Vital Signs Last Recorded V/S: Last Vital Signs Temp 97.0 F 08/12/20 11:04 Pulse 74 08/12/20 11:04 Resp 16 08/12/20 11:04 BP 129/72 08/12/20 11:04 Pulse Ox 94 L 08/12/20 11:04 - Orders/Labs/Meds Orders: Active Orders 24 hr Category Date Time Status CORONAVIRUS COVID-19, HARSHA Stat Lab 08/12/20 11:20 Received - Re-Assessments/Exams Free Text/Narrative Re-Assessment/Exam: 08/12/20 11:22 Patient's voice is normal, swallowing appears to be normal and her physical exam is normal. A coronavirus test was obtained which will be available in the next day or 2. I really do not have any concerns, she was discharged and can increase diet and activity as tolerated. Departure - Departure Time of Disposition: 11:46 Disposition: Home, Self-Care 01 Clinical Impression: Dysphagia Qualifiers: Dysphagia type: unspecified Qualified Code(s): R13.10 - Dysphagia, unspecified - Discharge Information Instructions: Dysphagia Referrals: Edvin Lay MD [Primary Care Provider] - Forms: ED Department Discharge Care Plan Goals: Your coronavirus test will be available likely on Tuesday, I do not believe you have Covid so try not to worry about it. Increase diet and activity as tolerated and return anytime if worsening or concerns. Sepsis Event Note (ED) - Evaluation Sepsis Screening Result: No Definite Risk - Focused Exam Vital Signs: Vital Signs Temp Pulse Resp BP Pulse Ox 08/12/20 11:04 97.0 F 74 16 129/72 94 L 08/12/20 11:02 97.0 F 74 16 129/72 94 L - My Orders Last 24 Hours: My Active Orders 08/12/20 11:20 CORONAVIRUS COVID-19, HARSHA Stat - Assessment/Plan Last 24 Hours: My Active Orders 08/12/20 11:20 CORONAVIRUS COVID-19, HARSHA Stat
== END 2020-08-12 11:46 | disposition home or self-care (01) ==
LOC: JP.ED 10:45
DX: R13.10 Dysphagia, unspecified (principal); I25.10 Atherosclerotic heart disease of native coronary artery without angina pectoris; I10 Essential (primary) hypertension; I25.2 Old myocardial infarction; E66.9 Obesity, unspecified; Z68.27 Body mass index [BMI] 27.0-27.9, adult; Z86.73 Personal history of transient ischemic attack (TIA), and cerebral infarction without residual deficits; Z79.01 Long term (current) use of anticoagulants; Z88.8 Allergy status to other drugs, medicaments and biological substances; Z88.1 Allergy status to other antibiotic agents; Z88.2 Allergy status to sulfonamides; Z88.7 Allergy status to serum and vaccine; Z88.5 Allergy status to narcotic agent; Z79.02 Long term (current) use of antithrombotics/antiplatelets; Z79.899 Other long term (current) drug therapy; Z20.822 Contact with and (suspected) exposure to COVID-19
CPT/HCPCS: 99283; U0002; 99282

== ENCOUNTER 2020-11-19 10:41 | Emergency (ER) | payer MEDICARE, BC ==
--- NOTE | 2020-11-19 11:00 | EDM.PDOC ---
ED HPI GENERAL MEDICAL PROBLEM - General Chief Complaint: Cardiovascular Problem Stated Complaint: HIGH BLOOD PRESSURE Time Seen by Provider: 11/19/20 10:54 Source of Information: Reports: Patient, EMS, RN Notes Reviewed History Limitations: Reports: No Limitations - History of Present Illness INITIAL COMMENTS - FREE TEXT/NARRATIVE: 85-year-old female presents emergency department today with concern about blood pressure, she arrived by EMS, she had been taking her blood pressure at home with a wrist cuff twice a day per recommendations from cardiology. She states that she noticed her blood pressure was high systolics 170s even after taking her blood pressure medication became concerned called EMS services she also developed some left arm pain which lasted about 5 minutes no chest discomfort no nausea no shortness of breath no diaphoresis. Pain was at 730 this morning - Related Data Allergies Allergy/AdvReac Type Severity Reaction Status Date / Time aluminum hydroxide Allergy Unknown Cannot Verified 11/19/20 10:44 [From Maalox Maximum Remember Strength] amlodipine Allergy Unknown Cannot Verified 11/19/20 10:44 Remember atorvastatin Allergy Unknown Cannot Verified 11/19/20 10:44 Remember azithromycin Allergy Unknown Cannot Verified 11/19/20 10:44 Remember bumetanide Allergy Unknown Cannot Verified 11/19/20 10:44 Remember celecoxib Allergy Unknown Cannot Verified 11/19/20 10:44 Remember cephalexin [Cephalexin] Allergy Unknown Cannot Verified 11/19/20 10:44 Remember chromium Allergy Unknown Cannot Verified 11/19/20 10:44 Remember ciprofloxacin [From Cipro] Allergy Unknown Cannot Verified 11/19/20 10:44 Remember ciprofloxacin HCl Allergy Unknown Cannot Verified 11/19/20 10:44 [From Cipro] Remember codeine Allergy Unknown Cannot Verified 11/19/20 10:44 Remember copper [Copper] Allergy Unknown Cannot Verified 11/19/20 10:44 Remember Corticosteroids Allergy Unknown Cannot Verified 11/19/20 10:44 (Glucocorticoids) Remember dipyridamole Allergy Unknown Cannot Verified 11/19/20 10:44 Remember esomeprazole Allergy Unknown Cannot Verified 11/19/20 10:44 Remember ezetimibe Allergy Unknown Cannot Verified 11/19/20 10:44 Remember fenofibrate nanocrystallized Allergy Unknown Cannot Verified 11/19/20 10:44 [From Tricor] Remember fenofibrate,micronized Allergy Unknown Cannot Verified 11/19/20 10:44 [From Tricor] Remember fexofenadine Allergy Unknown Cannot Verified 11/19/20 10:44 Remember furosemide Allergy Unknown Cannot Verified 11/19/20 10:44 Remember hydrochlorothiazide Allergy Unknown Rash Verified 11/19/20 10:44 lansoprazole [From Prevacid] Allergy Unknown Cannot Verified 11/19/20 10:44 Remember lisinopril Allergy Unknown Cannot Verified 11/19/20 10:44 Remember magnesium hydroxide Allergy Unknown Cannot Verified 11/19/20 10:44 [From Maalox Maximum Remember Strength] neomycin [Neomycin] Allergy Unknown Cannot Verified 11/19/20 10:44 Remember niacin Allergy Unknown Cannot Verified 11/19/20 10:44 Remember nicotine Allergy Unknown Cannot Verified 11/19/20 10:44 Remember omeprazole Allergy Unknown Cannot Verified 11/19/20 10:44 Remember pravastatin Allergy Unknown Cannot Verified 11/19/20 10:44 Remember rosuvastatin calcium Allergy Unknown Cannot Verified 11/19/20 10:44 [From Crestor] Remember simethicone Allergy Unknown Cannot Verified 11/19/20 10:44 [From Maalox Maximum Remember Strength] Sulfa (Sulfonamide Allergy Unknown Cannot Verified 11/19/20 10:44 Antibiotics) Remember tetanus toxoid, adsorbed Allergy Unknown Cannot Verified 11/19/20 10:44 Remember venlafaxine Allergy Unknown Cannot Verified 11/19/20 10:44 Remember amoxicillin [From Augmentin] Allergy Rash Verified 11/19/20 10:44 carboxymethylcellulose sodium Allergy Cannot Verified 11/19/20 10:44 [From Refresh Tears] Remember cetirizine HCl [From Zyrtec] Allergy Cannot Verified 11/19/20 10:44 Remember clavulanic acid Allergy Rash Verified 11/19/20 10:44 [From Augmentin] colesevelam HCl Allergy Cannot Verified 11/19/20 10:44 [From WelChol] Remember dexamethasone [From TobraDex] Allergy Cannot Verified 11/19/20 10:44 Remember doxycycline Allergy Other Verified 11/19/20 10:44 Influenza Virus Vaccines Allergy Hives Verified 11/19/20 10:44 Wadlkto-Mzu-Llm Reductase Allergy Cannot Verified 11/19/20 10:44 Inhibitor Remember tobramycin [From TobraDex] Allergy Cannot Verified 11/19/20 10:44 Remember hydromorphone HCl AdvReac Intermediate Nausea and Verified 11/19/20 10:44 [From Dilaudid] Vomiting morphine AdvReac Unknown Nausea and Verified 11/19/20 10:44 Vomiting clindamycin HCl AdvReac Diarrhea Verified 11/19/20 10:44 [From Cleocin] clindamycin palmitate HCl AdvReac Diarrhea Verified 11/19/20 10:44 [From Cleocin] clindamycin phosphate AdvReac Diarrhea Verified 11/19/20 10:44 [From Cleocin] Home Meds: Home Meds Clopidogrel Bisulfate [Clopidogrel] 75 mg PO DAILY 04/26/13 [History] Famotidine [Pepcid] 20 mg PO BID 04/26/13 [History] Nitroglycerin [Nitrostat] 0.4 mg SL ASDIRECTED PRN 04/26/13 [History] Acetaminophen [Tylenol] 325 mg PO Q4HR PRN 10/24/14 [History] Furosemide [Lasix] 20 mg PO DAILY PRN 12/12/18 [History] Lactase [Lactase Enzyme] 3,000 unit PO TID PRN 12/12/18 [History] polyethylene glycoL 3350 [MiraLAX] 17 gm PO DAILY PRN 12/12/18 [History] Metoprolol Succinate 25 mg PO DAILY 08/12/20 [History] Cholecalciferol (Vitamin D3) [Vitamin D] 1 tab PO DAILY 11/19/20 [History] Clotrimazole/Betameth Dip/Zinc [Dermacinrx Therazole Karsten] 1 drop EYEBOTH BID 11/19/20 [History] Cyanocobalamin (Vitamin B12) [Vitamin B13] 500 mcg PO DAILY 11/19/20 [History] Past Medical History HEENT History: Reports: Cataract, Impaired Vision, Sinusitis Other HEENT History: wear glasses Cardiovascular History: Reports: Automatic Implantable Cardioverter Defibrillators, Blood Clots/VTE/DVT, CAD, High Cholesterol, Hypertension, [place], Stents, Other (See Below) Other Cardiovascular History: defib. 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 Musculoskeletal History: Reports: Arthritis, Fracture, Other (See Below) Other Musculoskeletal History: right carpal tunnel Neurological History: Reports: Concussion, CVA, Migraines, TIA Endocrine/Metabolic History: Reports: Obesity/BMI 30+ Hematologic History: Reports: Anticoagulation Therapy, Blood Transfusion(s) - Infectious Disease History Infectious Disease History: Reports: Chicken Pox - Past Surgical History Head Surgeries/Procedures: Reports: None HEENT Surgical History: Reports: Cataract Surgery Cardiovascular Surgical History: Reports: Carotid Endarterectomy, Coronary Artery Stent Other Cardiovascular Surgeries/Procedures: defibulator Respiratory Surgical History: Reports: None GI Surgical History: Reports: Cholecystectomy, EGD Female Surgical History: Reports: Hysterectomy, Other (See Below) Other Female Surgeries/Procedures: partial hysterectomy Endocrine Surgical History: Reports: None Neurological Surgical History: Reports: None Musculoskeletal Surgical History: Reports: Carpal Tunnel Dermatological Surgical History: Reports: None Social & Family History - Family History Family Medical History: No Pertinent Family History - Caffeine Use Caffeine Use: Reports: Coffee Caffeine Use Comment: 3 daily ED ROS GENERAL - Review of Systems Review Of Systems: See Below Constitutional: Reports: No Symptoms HEENT: Reports: No Symptoms Respiratory: Reports: No Symptoms Cardiovascular: Reports: Blood Pressure Problem GI/Abdominal: Reports: No Symptoms : Reports: No Symptoms Musculoskeletal: Reports: Arm Pain ED EXAM, GENERAL - Physical Exam Exam: See Below Exam Limited By: No Limitations General Appearance: Alert, WD/WN, No Apparent Distress Respiratory/Chest: No Respiratory Distress, Lungs Clear, Normal Breath Sounds, No Accessory Muscle Use, Chest Non-Tender Cardiovascular: Regular Rate, Rhythm, No Murmur GI/Abdominal: Soft, Non-Tender #1 Interpretation EKG Date: 11/19/20 Time: 11:11 Rhythm: NSR [place]: Normal P-Wave: Present QRS: Normal ST-T: Normal QT: Normal Comparison: No Change Course - Vital Signs Last Recorded V/S: Last Vital Signs Temp 36.4 F L 11/19/20 11:02 Pulse 80 11/19/20 11:02 Resp 16 11/19/20 11:02 BP 149/90 H 11/19/20 11:02 Pulse Ox 98 11/19/20 11:02 - Orders/Labs/Meds Orders: Active Orders 24 hr Category Date Time Status Cardiac Monitoring [RC] .As Directed Care 11/19/20 10:58 Active EKG Documentation Completion [RC] ASDIRECTED Care 11/19/20 10:58 Active EKG 12 Lead [EK] Stat Ther 11/19/20 10:58 Ordered Labs: Laboratory Tests 11/19/20 11/19/20 Range/Units 11:09 11:09 WBC 6.8 (4.5-11.0) K/uL RBC 4.77 (3.30-5.50) M/uL Hgb 13.8 (12.0-15.0) g/dL Hct 43.3 (36.0-48.0) % MCV 91 (80-98) fL MCH 29 (27-31) pg MCHC 32 (32-36) % Plt Count 241 (150-400) K/uL Neut % (Auto) 74 H (36-66) % Lymph % (Auto) 14 L (24-44) % [place] % (Auto) 10 H (2-6) % Eos % (Auto) 1 L (2-4) % Baso % (Auto) 0 (0-1) % Sodium 145 (140-148) mmol/L Potassium 4.4 (3.6-5.2) mmol/L Chloride 108 (100-108) mmol/L Carbon Dioxide 26 (21-32) mmol/L Anion Gap 11.1 (5.0-14.0) mmol/L BUN 21 H (7-18) mg/dL Creatinine 0.8 (0.6-1.0) mg/dL Est Cr Clr Drug Dosing 37.38 mL/min Estimated GFR (MDRD) > 60 (>60) Glucose 91 (74-106) mg/dL Calcium 9.6 (8.5-10.1) mg/dL Troponin I < 0.017 (0.000-0.056) ng/mL Departure - Departure Time of Disposition: 11:49 Disposition: Home, Self-Care 01 Condition: Fair Clinical Impression: Essential hypertension Instructions: Hypertension, Adult, [id number] Referrals: PCP,None [Primary Care Provider] - Forms: ED Department Discharge Additional Instructions: Continue with your regular medications, recommend doing your blood pressure journal taking your blood pressure at random times but only taking your blood pressure once a day, please followup with your primary care provider in 3-5 days if not better, please call return to the emergency department with worsening of symptoms. Sepsis Event Note (ED) - Focused Exam Vital Signs: Vital Signs Temp Pulse Resp BP Pulse Ox 11/19/20 11:02 36.4 F L 80 16 149/90 H 98 11/19/20 10:42 36.4 F L 80 16 149/90 H 98 - My Orders Last 24 Hours: My Active Orders 11/19/20 10:58 Cardiac Monitoring [RC] .As Directed EKG Documentation Completion [RC] ASDIRECTED EKG 12 Lead [EK] Stat - Assessment/Plan Last 24 Hours: My Active Orders 11/19/20 10:58 Cardiac Monitoring [RC] .As Directed EKG Documentation Completion [RC] ASDIRECTED EKG 12 Lead [EK] Stat Plan: Assessment Acuity = acute Site and laterality = elevated blood pressure Etiology = unknown probably related to blood pressure cuff monitoring device Manifestations = none Location of injury = Home Lab values = CBC BMP unremarkable troponin is negative EKG demonstrates sinus rhythm no ST elevations or depressions EKG was similar to prior EKGs Plan I did review lab work EKG results with her her blood pressure was acceptable in the emergency department, will have her discharge from home continue to follow with her primary care This note was dictated using [employer] voice recognition software please call with any questions on syntax or grammar.
[2020-11-19 11:56] VITALS: BP 166/88; PULSE 84
== END 2020-11-19 12:05 | disposition home or self-care (01) ==
LOC: JP.ED 10:41
DX: I10 Essential (primary) hypertension (principal); I25.10 Atherosclerotic heart disease of native coronary artery without angina pectoris; E78.00 Pure hypercholesterolemia, unspecified; I25.2 Old myocardial infarction; E66.9 Obesity, unspecified; Z68.29 Body mass index [BMI] 29.0-29.9, adult; Z88.8 Allergy status to other drugs, medicaments and biological substances; Z91.048 Other nonmedicinal substance allergy status; Z88.1 Allergy status to other antibiotic agents; Z88.5 Allergy status to narcotic agent; Z88.2 Allergy status to sulfonamides; Z91.09 Other allergy status, other than to drugs and biological substances; Z88.7 Allergy status to serum and vaccine; Z88.0 Allergy status to penicillin; Z79.02 Long term (current) use of antithrombotics/antiplatelets; Z79.899 Other long term (current) drug therapy; Z86.73 Personal history of transient ischemic attack (TIA), and cerebral infarction without residual deficits
CPT/HCPCS: 36415; 80048; 84484; 85025; 93005; 99284; 99284-25

== ENCOUNTER 2020-12-02 10:39 | Emergency (ER) | payer MEDICARE, BC ==
[2020-12-02] MEDS ORDERED: Acetaminophen 325 MG Tab PO ONE (11:08)
--- NOTE | 2020-12-02 11:08 | EDM.PDOC ---
ED HPI GENERAL MEDICAL PROBLEM - General Chief Complaint: Lower Extremity Injury/Pain Stated Complaint: VIA [facility] Time Seen by Provider: 12/02/20 11:08 Source of Information: Reports: Patient History Limitations: Reports: No Limitations - History of Present Illness INITIAL COMMENTS - FREE TEXT/NARRATIVE: pt lot her balance when she was picking up something from the floor. She landed on both knees and ahe developed acute pain in the knees particularly on the left. She was brought here by ambulance. Onset: Today, Sudden Duration: Hour(s): Location: Reports: Lower Extremity, Left, Lower Extremity, Right Associated Symptoms: Reports: No Other Symptoms june knees Pain Score (Numeric/FACES): 4 - Related Data Allergies Allergy/AdvReac Type Severity Reaction Status Date / Time aluminum hydroxide Allergy Unknown Cannot Verified 12/02/20 10:44 [From Maalox Maximum Remember Strength] amlodipine Allergy Unknown Cannot Verified 12/02/20 10:44 Remember atorvastatin Allergy Unknown Cannot Verified 12/02/20 10:44 Remember azithromycin Allergy Unknown Cannot Verified 12/02/20 10:44 Remember bumetanide Allergy Unknown Cannot Verified 12/02/20 10:44 Remember celecoxib Allergy Unknown Cannot Verified 12/02/20 10:44 Remember cephalexin [Cephalexin] Allergy Unknown Cannot Verified 12/02/20 10:44 Remember chromium Allergy Unknown Cannot Verified 12/02/20 10:44 Remember ciprofloxacin [From Cipro] Allergy Unknown Cannot Verified 12/02/20 10:44 Remember ciprofloxacin HCl Allergy Unknown Cannot Verified 12/02/20 10:44 [From Cipro] Remember codeine Allergy Unknown Cannot Verified 12/02/20 10:44 Remember copper [Copper] Allergy Unknown Cannot Verified 12/02/20 10:44 Remember Corticosteroids Allergy Unknown Cannot Verified 12/02/20 10:44 (Glucocorticoids) Remember dipyridamole Allergy Unknown Cannot Verified 12/02/20 10:44 Remember esomeprazole Allergy Unknown Cannot Verified 12/02/20 10:44 Remember ezetimibe Allergy Unknown Cannot Verified 12/02/20 10:44 Remember fenofibrate nanocrystallized Allergy Unknown Cannot Verified 12/02/20 10:44 [From Tricor] Remember fenofibrate,micronized Allergy Unknown Cannot Verified 12/02/20 10:44 [From Tricor] Remember fexofenadine Allergy Unknown Cannot Verified 12/02/20 10:44 Remember furosemide Allergy Unknown Cannot Verified 12/02/20 10:44 Remember hydrochlorothiazide Allergy Unknown Rash Verified 12/02/20 10:44 lansoprazole [From Prevacid] Allergy Unknown Cannot Verified 12/02/20 10:44 Remember lisinopril Allergy Unknown Cannot Verified 12/02/20 10:44 Remember magnesium hydroxide Allergy Unknown Cannot Verified 12/02/20 10:44 [From Maalox Maximum Remember Strength] neomycin [Neomycin] Allergy Unknown Cannot Verified 12/02/20 10:44 Remember niacin Allergy Unknown Cannot Verified 12/02/20 10:44 Remember nicotine Allergy Unknown Cannot Verified 12/02/20 10:44 Remember omeprazole Allergy Unknown Cannot Verified 12/02/20 10:44 Remember pravastatin Allergy Unknown Cannot Verified 12/02/20 10:44 Remember rosuvastatin calcium Allergy Unknown Cannot Verified 12/02/20 10:44 [From Crestor] Remember simethicone Allergy Unknown Cannot Verified 12/02/20 10:44 [From Maalox Maximum Remember Strength] Sulfa (Sulfonamide Allergy Unknown Cannot Verified 12/02/20 10:44 Antibiotics) Remember tetanus toxoid, adsorbed Allergy Unknown Cannot Verified 12/02/20 10:44 Remember venlafaxine Allergy Unknown Cannot Verified 12/02/20 10:44 Remember amoxicillin [From Augmentin] Allergy Rash Verified 12/02/20 10:44 carboxymethylcellulose sodium Allergy Cannot Verified 12/02/20 10:44 [From Refresh Tears] Remember cetirizine HCl [From Zyrtec] Allergy Cannot Verified 12/02/20 10:44 Remember clavulanic acid Allergy Rash Verified 12/02/20 10:44 [From Augmentin] colesevelam HCl Allergy Cannot Verified 12/02/20 10:44 [From WelChol] Remember dexamethasone [From TobraDex] Allergy Cannot Verified 12/02/20 10:44 Remember doxycycline Allergy Other Verified 12/02/20 10:44 Influenza Virus Vaccines Allergy Hives Verified 12/02/20 10:44 Pllmyiv-[id number]-Wyb Reductase Allergy Cannot Verified 12/02/20 10:44 Inhibitor Remember tobramycin [From TobraDex] Allergy Cannot Verified 12/02/20 10:44 Remember hydromorphone HCl AdvReac Intermediate Nausea and Verified 12/02/20 10:44 [From Dilaudid] Vomiting morphine AdvReac Unknown Nausea and Verified 12/02/20 10:44 Vomiting clindamycin HCl AdvReac Diarrhea Verified 12/02/20 10:44 [From Cleocin] clindamycin palmitate HCl AdvReac Diarrhea Verified 12/02/20 10:44 [From Cleocin] clindamycin phosphate AdvReac Diarrhea Verified 12/02/20 10:44 [From Cleocin] Home Meds: Home Meds Clopidogrel Bisulfate [Clopidogrel] 75 mg PO DAILY 04/26/13 [History] Famotidine [Pepcid] 20 mg PO BID 04/26/13 [History] Nitroglycerin [Nitrostat] 0.4 mg SL ASDIRECTED PRN 04/26/13 [History] Acetaminophen [Tylenol] 325 mg PO Q4HR PRN 10/24/14 [History] Furosemide [Lasix] 20 mg PO DAILY PRN 12/12/18 [History] Lactase [Lactase Enzyme] 3,000 unit PO TID PRN 12/12/18 [History] polyethylene glycoL 3350 [MiraLAX] 17 gm PO DAILY PRN 12/12/18 [History] Metoprolol Succinate 25 mg PO DAILY 08/12/20 [History] Cholecalciferol (Vitamin D3) [Vitamin D] 1 tab PO DAILY 11/19/20 [History] Clotrimazole/Betameth Dip/Zinc [Dermacinrx Therazole Karsten] 1 drop EYEBOTH BID 11/19/20 [History] Cyanocobalamin (Vitamin B12) [Vitamin B13] 500 mcg PO DAILY 11/19/20 [History] Folic Acid 1 mg PO DAILY 12/02/20 [History] Past Medical History HEENT History: Reports: Cataract, Impaired Vision, Sinusitis Other HEENT History: wear glasses Cardiovascular History: Reports: Automatic Implantable Cardioverter Defibrillators, Blood Clots/VTE/DVT, CAD, High Cholesterol, Hypertension, [place], Stents, Other (See Below) Other Cardiovascular History: defib. 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 Musculoskeletal History: Reports: Arthritis, Fracture, Other (See Below) Other Musculoskeletal History: right carpal tunnel Neurological History: Reports: Concussion, CVA, Migraines, TIA Endocrine/Metabolic History: Reports: Obesity/BMI 30+ Hematologic History: Reports: Anticoagulation Therapy, Blood Transfusion(s) - Infectious Disease History Infectious Disease History: Reports: Chicken Pox - Past Surgical History Head Surgeries/Procedures: Reports: None HEENT Surgical History: Reports: Cataract Surgery Cardiovascular Surgical History: Reports: Carotid Endarterectomy, Coronary Artery Stent Other Cardiovascular Surgeries/Procedures: defibulator Respiratory Surgical History: Reports: None GI Surgical History: Reports: Cholecystectomy, EGD Female Surgical History: Reports: Hysterectomy, Other (See Below) Other Female Surgeries/Procedures: partial hysterectomy Endocrine Surgical History: Reports: None Neurological Surgical History: Reports: None Musculoskeletal Surgical History: Reports: Carpal Tunnel Dermatological Surgical History: Reports: None Social & Family History - Family History Family Medical History: No Pertinent Family History - Tobacco Use Tobacco Use Status *Q: Never Tobacco User - Caffeine Use Caffeine Use: Reports: Coffee Caffeine Use Comment: 3 daily - Recreational Drug Use Recreational Drug Use: No Review of Systems - Review of Systems Review Of Systems: See Below Constitutional: Reports: No Symptoms Eyes: Reports: No Symptoms Ears: Reports: No Symptoms Nose: Reports: No Symptoms Mouth/Throat: Reports: No Symptoms Respiratory: Reports: No Symptoms Cardiovascular: Reports: No Symptoms Musculoskeletal: Reports: Other (pain in both knees) ED EXAM, GENERAL - Physical Exam Exam: See Below Free Text/Narrative:: pt arrived with pain in both knees. She feels like it is worse in the left. Exam Limited By: No Limitations General Appearance: Alert, Anxious, Mild Distress Ears: Normal TMs Nose: Normal Inspection Throat/Mouth: Normal Inspection Head: Atraumatic Neck: Normal Inspection Respiratory/Chest: No Respiratory Distress Cardiovascular: Regular Rate, Rhythm GI/Abdominal: Soft, Non-Tender Extremities: Other (pt is tender over both knees. She has minimal swelling and no bruising. ) Course - Vital Signs Last Recorded V/S: Last Vital Signs Temp 35.5 C L 12/02/20 10:41 Pulse 71 12/02/20 13:32 Resp 12 12/02/20 13:32 BP 137/71 12/02/20 13:32 Pulse Ox 99 12/02/20 13:32 - Orders/Labs/Meds Meds: Medications Discontinued Medications Generic Name Dose Route Start Last Admin Trade Name Freq PRN Reason Stop Dose Admin Acetaminophen 650 mg 12/02/20 11:08 12/02/20 11:39 Acetaminophen 325 Mg Tab PO 12/02/20 11:09 325 mg NOW ONE Administration - Re-Assessments/Exams Free Text/Narrative Re-Assessment/Exam: 12/02/20 14:15 no fractures seen. On the plain films 1 view there was a questional area on the left. A cat scan of the left knee was obtained and this was found to be neg for fracture. She was walked with a walker and did ok. She is alone in an apartment. Departure - Departure Time of Disposition: 14:08 Disposition: Home, Self-Care 01 Condition: Fair Clinical Impression: Contusion of knee, left, Contusion of right knee - Discharge Information Referrals: PCP,None [Primary Care Provider] - Forms: ED Department Discharge Care Plan Goals: rigorously ice the knee on the left, minimal walking. use a walker when ambulating, tylenol 325 q6g prn for pain. Sepsis Event Note (ED) - Evaluation Sepsis Screening Result: No Definite Risk - Focused Exam Vital Signs: Vital Signs Temp Pulse Resp BP Pulse Ox 12/02/20 13:32 71 12 137/71 99 12/02/20 12:20 68 12 134/66 96 12/02/20 10:41 35.5 C L 79 12 147/76 H 97
--- NOTE | 2020-12-02 12:23 | CRLCR ---
INDICATION: Fall. TECHNIQUE: AP, lateral, and patellofemoral views. Right and left knee. Total of 6 images were submitted. Impression. Bones are diffusely demineralized. AP view of the left knee shows a subtle oblique linear lucency at the proximal tibia. The lateral view shows no signs for effusion or fat fluid level and the tibial plateau appears normal on the lateral view. However, correlate with injury mechanism and follow-up radiographs could be obtained if there is point tenderness of the left proximal tibia. No additional fractures noted. Diffuse bilateral moderate tricompartmental joint space narrowing. Anatomic alignments. Symmetric patellar tracking. Dictated by Antonio Delatorre MD @ 12/02/2020 12:21:[address] Antonio Delatorre @ Dec 02 2020 12:21PM
[2020-12-02 13:33] VITALS: BP 137/71; PULSE 71
--- NOTE | 2020-12-02 13:44 | CRLCT ---
HISTORY: Left knee pain after falling injury. FINDINGS: The knee was studied in the axial plane. Sagittal and coronal 2 dimensional reconstructions were then performed. Severe osteopenia is noted. No findings for proximal tibial fracture or fracture elsewhere. No joint effusion or loose body is noted. Age related articular cartilage loss is likely throughout the knee joint. The extensor mechanism is intact. IMPRESSION: Negative study for fracture. Please note that all CT scans at this facility use dose modulation, iterative reconstruction, and/or weight-based dosing when appropriate to reduce radiation dose to as low as reasonably achievable. Dictated by Bean Chaidez MD @ 12/02/2020 1:42:[address] Bean Chaidez @ Dec 02 2020 1:42PM
== END 2020-12-02 14:29 | disposition home or self-care (01) ==
LOC: JP.ED 10:39
DX: S80.02XA Contusion of left knee, initial encounter (principal); S80.01XA Contusion of right knee, initial encounter; I10 Essential (primary) hypertension; I25.2 Old myocardial infarction; E66.9 Obesity, unspecified; I25.10 Atherosclerotic heart disease of native coronary artery without angina pectoris; Z68.29 Body mass index [BMI] 29.0-29.9, adult; Z88.8 Allergy status to other drugs, medicaments and biological substances; Z88.1 Allergy status to other antibiotic agents; Z91.048 Other nonmedicinal substance allergy status; Z79.02 Long term (current) use of antithrombotics/antiplatelets; Z88.5 Allergy status to narcotic agent; Z88.2 Allergy status to sulfonamides; Z86.73 Personal history of transient ischemic attack (TIA), and cerebral infarction without residual deficits; Z95.5 Presence of coronary angioplasty implant and graft; W01.0XXA Fall on same level from slipping, tripping and stumbling without subsequent striking against object, initial encounter
CPT/HCPCS: 73562; 73700; 99284; A9270; 99282

== ENCOUNTER 2021-04-10 19:22 | Emergency (ER) | payer MEDICARE, BC ==
--- NOTE | 2021-04-10 20:16 | EDM.PDOC ---
ED HPI GENERAL MEDICAL PROBLEM - General Chief Complaint: General Stated Complaint: REACTION TO FLU SHOT Time Seen by Provider: 04/10/21 20:07 Source of Information: Reports: Patient History Limitations: Reports: No Limitations - History of Present Illness INITIAL COMMENTS - FREE TEXT/NARRATIVE: Light headedness, felt like passing out, for 5 minutes at 1830. Noted hot feeling across chest. Symptoms rapidly passed. Feels better now. Had influenza vaccine at 1430 today. History of CVA and heart arrhythmia problems. Has [employer] ICD. No history of Sz. No infectious symptoms. - Related Data Allergies Allergy/AdvReac Type Severity Reaction Status Date / Time aluminum hydroxide Allergy Unknown Cannot Verified 04/10/21 19:40 [From Maalox Maximum Remember Strength] amlodipine Allergy Unknown Cannot Verified 04/10/21 19:40 Remember atorvastatin Allergy Unknown Cannot Verified 04/10/21 19:40 Remember azithromycin Allergy Unknown Cannot Verified 04/10/21 19:40 Remember bumetanide Allergy Unknown Cannot Verified 04/10/21 19:40 Remember celecoxib Allergy Unknown Cannot Verified 04/10/21 19:40 Remember cephalexin [Cephalexin] Allergy Unknown Cannot Verified 04/10/21 19:40 Remember chromium Allergy Unknown Cannot Verified 04/10/21 19:40 Remember ciprofloxacin [From Cipro] Allergy Unknown Cannot Verified 04/10/21 19:40 Remember ciprofloxacin HCl Allergy Unknown Cannot Verified 04/10/21 19:40 [From Cipro] Remember codeine Allergy Unknown Cannot Verified 04/10/21 19:40 Remember copper [Copper] Allergy Unknown Cannot Verified 04/10/21 19:40 Remember Corticosteroids Allergy Unknown Cannot Verified 04/10/21 19:40 (Glucocorticoids) Remember dipyridamole Allergy Unknown Cannot Verified 04/10/21 19:40 Remember esomeprazole Allergy Unknown Cannot Verified 04/10/21 19:40 Remember ezetimibe Allergy Unknown Cannot Verified 04/10/21 19:40 Remember fenofibrate nanocrystallized Allergy Unknown Cannot Verified 04/10/21 19:40 [From Tricor] Remember fenofibrate,micronized Allergy Unknown Cannot Verified 04/10/21 19:40 [From Tricor] Remember fexofenadine Allergy Unknown Cannot Verified 04/10/21 19:40 Remember furosemide Allergy Unknown Cannot Verified 04/10/21 19:40 Remember hydrochlorothiazide Allergy Unknown Rash Verified 04/10/21 19:40 lansoprazole [From Prevacid] Allergy Unknown Cannot Verified 04/10/21 19:40 Remember lisinopril Allergy Unknown Cannot Verified 04/10/21 19:40 Remember magnesium hydroxide Allergy Unknown Cannot Verified 04/10/21 19:40 [From Maalox Maximum Remember Strength] neomycin [Neomycin] Allergy Unknown Cannot Verified 04/10/21 19:40 Remember niacin Allergy Unknown Cannot Verified 04/10/21 19:40 Remember nicotine Allergy Unknown Cannot Verified 04/10/21 19:40 Remember omeprazole Allergy Unknown Cannot Verified 04/10/21 19:40 Remember pravastatin Allergy Unknown Cannot Verified 04/10/21 19:40 Remember rosuvastatin calcium Allergy Unknown Cannot Verified 04/10/21 19:40 [From Crestor] Remember simethicone Allergy Unknown Cannot Verified 04/10/21 19:40 [From Maalox Maximum Remember Strength] Sulfa (Sulfonamide Allergy Unknown Cannot Verified 04/10/21 19:40 Antibiotics) Remember tetanus toxoid, adsorbed Allergy Unknown Cannot Verified 04/10/21 19:40 Remember venlafaxine Allergy Unknown Cannot Verified 04/10/21 19:40 Remember amoxicillin [From Augmentin] Allergy Rash Verified 04/10/21 19:40 carboxymethylcellulose sodium Allergy Cannot Verified 04/10/21 19:40 [From Refresh Tears] Remember cetirizine HCl [From Zyrtec] Allergy Cannot Verified 04/10/21 19:40 Remember clavulanic acid Allergy Rash Verified 04/10/21 19:40 [From Augmentin] colesevelam HCl Allergy Cannot Verified 04/10/21 19:40 [From WelChol] Remember dexamethasone [From TobraDex] Allergy Cannot Verified 04/10/21 19:40 Remember doxycycline Allergy Other Verified 04/10/21 19:40 Influenza Virus Vaccines Allergy Hives Verified 04/10/21 19:40 [id number] Reductase Allergy Cannot Verified 04/10/21 19:40 Inhibitor Remember tobramycin [From TobraDex] Allergy Cannot Verified 04/10/21 19:40 Remember hydromorphone HCl AdvReac Intermediate Nausea and Verified 04/10/21 19:40 [From Dilaudid] Vomiting morphine AdvReac Unknown Nausea and Verified 04/10/21 19:40 Vomiting clindamycin HCl AdvReac Diarrhea Verified 04/10/21 19:40 [From Cleocin] clindamycin palmitate HCl AdvReac Diarrhea Verified 04/10/21 19:40 [From Cleocin] clindamycin phosphate AdvReac Diarrhea Verified 04/10/21 19:40 [From Cleocin] Home Meds: Home Meds Clopidogrel Bisulfate [Clopidogrel] 75 mg PO DAILY 04/26/13 [History] Famotidine [Pepcid] 20 mg PO BID 04/26/13 [History] Nitroglycerin [Nitrostat] 0.4 mg SL ASDIRECTED PRN 04/26/13 [History] Acetaminophen [Tylenol] 325 mg PO Q4HR PRN 10/24/14 [History] Furosemide [Lasix] 20 mg PO DAILY PRN 12/12/18 [History] Lactase [Lactase Enzyme] 3,000 unit PO TID PRN 12/12/18 [History] polyethylene glycoL 3350 [MiraLAX] 17 gm PO DAILY PRN 12/12/18 [History] Metoprolol Succinate 25 mg PO DAILY 08/12/20 [History] Cholecalciferol (Vitamin D3) [Vitamin D] 1 tab PO DAILY 11/19/20 [History] Clotrimazole/Betameth Dip/Zinc [Dermacinrx Therazole Karsten] 1 drop EYEBOTH BID 11/19/20 [History] Cyanocobalamin (Vitamin B12) [Vitamin B13] 500 mcg PO DAILY 11/19/20 [History] Folic Acid 1 mg PO DAILY 12/02/20 [History] Past Medical History HEENT History: Reports: Cataract, Impaired Vision, Sinusitis Other HEENT History: wear glasses Cardiovascular History: Reports: Automatic Implantable Cardioverter Defibrillat ors, Blood Clots/VTE/DVT, CAD, High Cholesterol, Hypertension, [place], Stents, Other (See Below) Other Cardiovascular History: defib. Respiratory History: Reports: Bronchitis, Recurrent, Pneumonia, Recurrent, SOB Other Respiratory History: wears oxygen at home on a prn basis Gastrointestinal History: Reports: Cholelithiasis, PUD Genitourinary History: Reports: None O[employer] BLASTING History: Reports: , Prolapsed Uterus Musculoskeletal History: Reports: Arthritis, Fracture, Other (See Below) Other Musculoskeletal History: right carpal tunnel Neurological History: Reports: Concussion, CVA, Migraines, TIA Endocrine/Metabolic History: Reports: Obesity/BMI 30+ Hematologic History: Reports: Anticoagulation Therapy, Blood Transfusion(s) - Infectious Disease History Infectious Disease History: Reports: Chicken Pox - Past Surgical History Head Surgeries/Procedures: Reports: None HEENT Surgical History: Reports: Cataract Surgery Cardiovascular Surgical History: Reports: Carotid Endarterectomy, Coronary Artery Stent Other Cardiovascular Surgeries/Procedures: defibulator Respiratory Surgical History: Reports: None GI Surgical History: Reports: Cholecystectomy, EGD Female Surgical History: Reports: Hysterectomy, Other (See Below) Other Female Surgeries/Procedures: partial hysterectomy Endocrine Surgical History: Reports: None Neurological Surgical History: Reports: None Musculoskeletal Surgical History: Reports: Carpal Tunnel Dermatological Surgical History: Reports: None Social & Family History - Family History Family Medical History: No Pertinent Family History - Tobacco Use Tobacco Use Status *Q: Never Tobacco User - Caffeine Use Caffeine Use: Reports: Coffee Caffeine Use Comment: 3 daily - Recreational Drug Use Recreational Drug Use: No ED ROS GENERAL - Review of Systems Review Of Systems: See Below Constitutional: Reports: Other (light headedness) HEENT: Reports: No Symptoms Respiratory: Reports: Shortness of Breath Cardiovascular: Reports: Chest Pain Endocrine: Reports: No Symptoms GI/Abdominal: Reports: Nausea. Denies: Vomiting : Reports: No Symptoms Musculoskeletal: Reports: No Symptoms Skin: Reports: No Symptoms Neurological: Reports: Dizziness Psychiatric: Reports: No Symptoms ED EXAM, GENERAL - Physical Exam Exam: See Below Exam Limited By: No Limitations General Appearance: Alert, WD/WN, No Apparent Distress Eye Exam: Bilateral Eye: EOMI, Normal Inspection Ears: Normal External Exam Nose: Normal Inspection Throat/Mouth: Normal Inspection Head: Normocephalic Respiratory/Chest: No Respiratory Distress, Lungs Clear, Normal Breath Sounds Cardiovascular: Regular Rate, Rhythm, No Gallop, No Murmur Neurological: Alert, Oriented, Normal Cognition, No Motor/Sensory Deficits Psychiatric: Normal Affect, Normal Mood Skin Exam: Warm, Dry Course - Vital Signs Text/Narrative:: The patient was evaluated. BP is peristently high (>190). Pt is taking all her current meds including Metoprolol succinate. CV and neuro exam is normal and not symptoms or signs suggesting infection. ECG has no acute changes. CBC and BMP are normal. Recommended additional dose of metoprolol (Patient has multiple drug reactions, but tolerates metoprolol well), but patient and her daughter declined. She isn't able to provide urine sample and requests to go home. She agrees to return to the ED if symptoms recur or if she has concerns. Last Recorded V/S: Last Vital Signs Temp 36.1 C 04/10/21 19:37 Pulse 85 04/10/21 21:08 Resp 20 04/10/21 19:37 BP 191/85 H 04/10/21 21:08 Pulse Ox 96 04/10/21 19:37 - Orders/Labs/Meds Orders: Active Orders 24 hr Category Date Time Status EKG 12 Lead [EK] Stat Ther 04/10/21 20:19 Ordered Labs: Laboratory Tests 04/10/21 04/10/21 Range/Units 20:32 20:32 WBC 7.0 (4.5-11.0) K/uL RBC 4.75 (3.30-5.50) M/uL Hgb 14.0 (12.0-15.0) g/dL Hct 43.4 (36.0-48.0) % MCV 91 (80-98) fL MCH 30 (27-31) pg MCHC 32 (32-36) % Plt Count 279 (150-400) K/uL Neut % (Auto) 71.0 H (36-66) % Lymph % (Auto) 14.2 L (24-44) % [place] % (Auto) 12.7 H (2-6) % Eos % (Auto) 1.7 L (2-4) % Baso % (Auto) 0.4 (0-1) % Sodium 141 (140-148) mmol/L Potassium 4.5 (3.6-5.2) mmol/L Chloride 107 (100-108) mmol/L Carbon Dioxide 29 (21-32) mmol/L Anion Gap 5.2 (5.0-14.0) mmol/L BUN 18 (7-18) mg/dL Creatinine 0.8 (0.6-1.0) mg/dL Est Cr Clr Drug Dosing 39.18 mL/min Estimated GFR (MDRD) > 60 (>60) Glucose 106 (74-106) mg/dL Calcium 8.8 (8.5-10.1) mg/dL Departure - Departure Time of Disposition: 21:22 Disposition: Home, Self-Care 01 Condition: Good Clinical Impression: Syncope - Discharge Information Referrals: Edvin Lay MD [Primary Care Provider] - Forms: ED Department Discharge Additional Instructions: Take all your current medications. Return to the ER as needed. Sepsis Event Note (ED) - Evaluation Sepsis Screening Result: No Definite Risk - Focused Exam Vital Signs: Vital Signs Temp Pulse Resp BP Pulse Ox 04/10/21 21:08 85 191/85 H 04/10/21 19:37 36.1 C 98 20 198/74 H 96 - My Orders Last 24 Hours: My Active Orders 04/10/21 20:19 EKG 12 Lead [EK] Stat - Assessment/Plan Last 24 Hours: My Active Orders 04/10/21 20:19 EKG 12 Lead [EK] Stat
[2021-04-10 21:09] VITALS: BP 191/85; PULSE 85
== END 2021-04-10 22:04 | disposition home or self-care (01) ==
LOC: JP.ED 19:22
DX: R55 Syncope and collapse (principal); I25.10 Atherosclerotic heart disease of native coronary artery without angina pectoris; E78.00 Pure hypercholesterolemia, unspecified; I10 Essential (primary) hypertension; I25.2 Old myocardial infarction; E66.9 Obesity, unspecified; Z95.810 Presence of automatic (implantable) cardiac defibrillator; Z88.5 Allergy status to narcotic agent; Z88.1 Allergy status to other antibiotic agents; Z88.8 Allergy status to other drugs, medicaments and biological substances; Z79.02 Long term (current) use of antithrombotics/antiplatelets; Z86.73 Personal history of transient ischemic attack (TIA), and cerebral infarction without residual deficits; Z68.28 Body mass index [BMI] 28.0-28.9, adult
CPT/HCPCS: 36415; 80048; 81001; 85025; 87086; 93005; 99284-25

== ENCOUNTER 2021-05-21 02:59 | Emergency (ER) | payer MEDICARE, BC ==
[2021-05-21] MEDS ORDERED: Sodium Chloride 0.9% 10 ML Syringe FLUSH PRN (03:07)
[2021-05-21] MEDS ORDERED: Ondansetron 4 MG Tab.DIS PO ONE (03:11)
--- NOTE | 2021-05-21 03:17 | EDM.PDOC ---
ED HPI GENERAL MEDICAL PROBLEM - General Chief Complaint: Cardiovascular Problem Stated Complaint: MEDICAL [facility] Time Seen by Provider: 05/21/21 03:00 Source of Information: Reports: Patient History Limitations: Reports: No Limitations - History of Present Illness INITIAL COMMENTS - FREE TEXT/NARRATIVE: Patient presents to the ER today due to awakening with L-ear pressure/discomfort followed by mid-sternal chest pressure. She states that she had R-ear pressure/discomfort yesterday afternoon but it resolved. She denies any other concerns prior to going to bed. Additionally, she has some nausea but no vomiting & mild HALE. Denies any other associated symptoms of concern (no dizzy/lightheaded, no SOB/difficulty breathing, no fever/chills) PMH/Meds/allergies--reviewed in EMR, noted for multiple allergies of unknown significance. she has significant cardiovascular history with noted stents & icd placement She denies tob/etoh/drug use She denies COVID infection history, she states she has had her COVID immunization bilateral ears Pain Score (Numeric/FACES): 8 chest Pain Score (Numeric/FACES): 8 - Related Data Allergies Allergy/AdvReac Type Severity Reaction Status Date / Time aluminum hydroxide Allergy Unknown Cannot Verified 05/21/21 03:10 [From Maalox Maximum Remember Strength] amlodipine Allergy Unknown Cannot Verified 05/21/21 03:10 Remember atorvastatin Allergy Unknown Cannot Verified 05/21/21 03:10 Remember azithromycin Allergy Unknown Cannot Verified 05/21/21 03:10 Remember bumetanide Allergy Unknown Cannot Verified 05/21/21 03:10 Remember celecoxib Allergy Unknown Cannot Verified 05/21/21 03:10 Remember cephalexin [Cephalexin] Allergy Unknown Cannot Verified 05/21/21 03:10 Remember chromium Allergy Unknown Cannot Verified 05/21/21 03:10 Remember ciprofloxacin [From Cipro] Allergy Unknown Cannot Verified 05/21/21 03:10 Remember ciprofloxacin HCl Allergy Unknown Cannot Verified 05/21/21 03:10 [From Cipro] Remember codeine Allergy Unknown Cannot Verified 05/21/21 03:10 Remember copper [Copper] Allergy Unknown Cannot Verified 05/21/21 03:10 Remember Corticosteroids Allergy Unknown Cannot Verified 05/21/21 03:10 (Glucocorticoids) Remember dipyridamole Allergy Unknown Cannot Verified 05/21/21 03:10 Remember esomeprazole Allergy Unknown Cannot Verified 05/21/21 03:10 Remember ezetimibe Allergy Unknown Cannot Verified 05/21/21 03:10 Remember fenofibrate nanocrystallized Allergy Unknown Cannot Verified 05/21/21 03:10 [From Tricor] Remember fenofibrate,micronized Allergy Unknown Cannot Verified 05/21/21 03:10 [From Tricor] Remember fexofenadine Allergy Unknown Cannot Verified 05/21/21 03:10 Remember furosemide Allergy Unknown Cannot Verified 05/21/21 03:10 Remember hydrochlorothiazide Allergy Unknown Rash Verified 05/21/21 03:10 lansoprazole [From Prevacid] Allergy Unknown Cannot Verified 05/21/21 03:10 Remember lisinopril Allergy Unknown Cannot Verified 05/21/21 03:10 Remember magnesium hydroxide Allergy Unknown Cannot Verified 05/21/21 03:10 [From Maalox Maximum Remember Strength] neomycin [Neomycin] Allergy Unknown Cannot Verified 05/21/21 03:10 Remember niacin Allergy Unknown Cannot Verified 05/21/21 03:10 Remember nicotine Allergy Unknown Cannot Verified 05/21/21 03:10 Remember omeprazole Allergy Unknown Cannot Verified 05/21/21 03:10 Remember pravastatin Allergy Unknown Cannot Verified 05/21/21 03:10 Remember rosuvastatin calcium Allergy Unknown Cannot Verified 05/21/21 03:10 [From Crestor] Remember simethicone Allergy Unknown Cannot Verified 05/21/21 03:10 [From Maalox Maximum Remember Strength] Sulfa (Sulfonamide Allergy Unknown Cannot Verified 05/21/21 03:10 Antibiotics) Remember tetanus toxoid, adsorbed Allergy Unknown Cannot Verified 05/21/21 03:10 Remember venlafaxine Allergy Unknown Cannot Verified 05/21/21 03:10 Remember amoxicillin [From Augmentin] Allergy Rash Verified 05/21/21 03:10 carboxymethylcellulose sodium Allergy Cannot Verified 05/21/21 03:10 [From Refresh Tears] Remember cetirizine HCl [From Zyrtec] Allergy Cannot Verified 05/21/21 03:10 Remember clavulanic acid Allergy Rash Verified 05/21/21 03:10 [From Augmentin] colesevelam HCl Allergy Cannot Verified 05/21/21 03:10 [From WelChol] Remember dexamethasone [From TobraDex] Allergy Cannot Verified 05/21/21 03:10 Remember doxycycline Allergy Other Verified 05/21/21 03:10 Influenza Virus Vaccines Allergy Hives Verified 05/21/21 03:10 Rruoltm-[id number] Reductase Allergy Cannot Verified 05/21/21 03:10 Inhibitor Remember [Jxprpxh-Xbp-Pxw Reductase Inhibitor] tobramycin [From TobraDex] Allergy Cannot Verified 05/21/21 03:10 Remember hydromorphone HCl AdvReac Intermediate Nausea and Verified 05/21/21 03:10 [From Dilaudid] Vomiting morphine AdvReac Unknown Nausea and Verified 05/21/21 03:10 Vomiting clindamycin HCl AdvReac Diarrhea Verified 05/21/21 03:10 [From Cleocin] clindamycin palmitate HCl AdvReac Diarrhea Verified 05/21/21 03:10 [From Cleocin] clindamycin phosphate AdvReac Diarrhea Verified 05/21/21 03:10 [From Cleocin] Home Meds: Home Meds Clopidogrel Bisulfate [Clopidogrel] 75 mg PO DAILY 04/26/13 [History] Famotidine [Pepcid] 20 mg PO BID 04/26/13 [History] Nitroglycerin [Nitrostat] 0.4 mg SL ASDIRECTED PRN 04/26/13 [History] Acetaminophen [Tylenol] 325 mg PO Q4HR PRN 10/24/14 [History] Furosemide [Lasix] 20 mg PO DAILY PRN 12/12/18 [History] Lactase [Lactase Enzyme] 3,000 unit PO TID PRN 12/12/18 [History] polyethylene glycoL 3350 [MiraLAX] 17 gm PO DAILY PRN 12/12/18 [History] Metoprolol Succinate 25 mg PO BEDTIME 08/12/20 [History] Cholecalciferol (Vitamin D3) [Vitamin D] 1 tab PO DAILY 11/19/20 [History] Folic Acid 1 mg PO DAILY 12/02/20 [History] Past Medical History HEENT History: Reports: Cataract, Impaired Vision, Sinusitis Other HEENT History: wear glasses Cardiovascular History: Reports: Automatic Implantable Cardioverter Defibrillators, Blood Clots/VTE/DVT, CAD, High Cholesterol, Hypertension, [place], Stents, Other (See Below) Other Cardiovascular History: defib. Respiratory History: Reports: Bronchitis, Recurrent, Pneumonia, Recurrent, SOB Other Respiratory History: wears oxygen at home on a prn basis Gastrointestinal History: Reports: Cholelithiasis, PUD Genitourinary History: Reports: None [employer] History: Reports: , Prolapsed Uterus Musculoskeletal History: Reports: Arthritis, Fracture, Other (See Below) Other Musculoskeletal History: right carpal tunnel Neurological History: Reports: Concussion, CVA, Migraines, TIA Endocrine/Metabolic History: Reports: Obesity/BMI 30+ Hematologic History: Reports: Anticoagulation Therapy, Blood Transfusion(s) - Infectious Disease History Infectious Disease History: Reports: Chicken Pox - Past Surgical History Head Surgeries/Procedures: Reports: None HEENT Surgical History: Reports: Cataract Surgery Cardiovascular Surgical History: Reports: Carotid Endarterectomy, Coronary Artery Stent Other Cardiovascular Surgeries/Procedures: defibulator Respiratory Surgical History: Reports: None GI Surgical History: Reports: Cholecystectomy, EGD Female Surgical History: Reports: Hysterectomy, Other (See Below) Other Female Surgeries/Procedures: partial hysterectomy Endocrine Surgical History: Reports: None Neurological Surgical History: Reports: None Musculoskeletal Surgical History: Reports: Carpal Tunnel Dermatological Surgical History: Reports: None Social & Family History - Family History Family Medical History: No Pertinent Family History - Caffeine Use Caffeine Use: Reports: Coffee Caffeine Use Comment: 3 daily ED ROS GENERAL - Review of Systems Review Of Systems: Comprehensive ROS is negative, except as noted in HPI. Constitutional: Denies: No Symptoms HEENT: Reports: Ear Pain Respiratory: Reports: No Symptoms Cardiovascular: Reports: Chest Pain. Denies: Dyspnea on Exertion, Lightheadedness, Palpitations GI/Abdominal: Reports: Nausea. Denies: Abdominal Pain, Vomiting Neurological: Reports: Headache. Denies: Dizziness, Trouble Speaking, Weakness, Change in Speech ED EXAM, GENERAL - Physical Exam Exam: See Below Exam Limited By: No Limitations General Appearance: Alert, WD/WN, Mild Distress, Other (frail, elderly appearing female) Eye Exam: Bilateral Eye: EOMI, Normal Inspection, PERRL Ears: Normal External Exam, Normal Canal, Hearing Grossly Normal, Normal TMs Nose: Normal Inspection Throat/Mouth: Normal Inspection, Normal Oropharynx, Normal Voice, No Airway Compromise Head: Atraumatic, Normocephalic Neck: Normal Inspection, Supple, Non-Tender, Full Range of Motion Respiratory/Chest: No Respiratory Distress, Lungs Clear, Normal Breath Sounds Cardiovascular: Regular Rate, Rhythm, No Edema, No Murmur Peripheral Pulses: 2+: Radial (L), Radial (R) GI/Abdominal: Normal Bowel Sounds, Soft, Tender (tender to LUQ, no guarding or rebound) (Female) Exam: Deferred Rectal (Female) Exam: Deferred Back Exam: Normal Inspection (mild kyphosis) Extremities: Normal Inspection, Normal Range of Motion, No Pedal Edema, Normal Capillary Refill Neurological: Alert, Oriented, CN II-XII Intact, Normal Cognition, No Motor/Sensory Deficits Psychiatric: Normal Affect, Normal Mood Skin Exam: Warm, Dry, Intact, Normal Color #1 Interpretation EKG Date: 05/21/21 Time: 03:00 (read at 0300, no STEMI) Rhythm: NSR Rate (Beats/Min): 73 Magnet: Normal P-Wave: Present (MD-148) QRS: Other (QRS-115, nonspecific intraventricular conduction delay) ST-T: Normal QT: Normal (QT/QTc-484/534) Course - Vital Signs Text/Narrative:: 0353--in room to review today's ER findings with patient. no acute findings of concern. d/w her use of afrin nasal decongestant as she describes ear pressure/pain like need to "pop"--eustachian tube dysfunction. she reports nausea improved, continued HALE thus will provide a dose of acetaminophen. at this time d/c home with PCM follow up if continued concerns. verbalized understanding/agreement with plan of care Last Recorded V/S: Last Vital Signs Temp 97.7 F 05/21/21 03:24 Pulse 71 05/21/21 03:24 Resp 16 05/21/21 03:24 BP 147/71 H 05/21/21 03:24 Pulse Ox 98 05/21/21 03:24 - Orders/Labs/Meds Orders: Active Orders 24 hr Category Date Time Status Cardiac Monitoring [RC] .As Directed Care 05/21/21 03:08 Active Oxygen Therapy [RC] PRN Care 05/21/21 03:08 Active Pulse Oximetry [RC] CONTINUOUS Care 05/21/21 03:08 Active Chest 1V Frontal [CR] Stat Exams 05/21/21 03:09 Ordered Sodium Chloride 0.9% [Saline Flush] Med 05/21/21 03:07 Active 10 ml FLUSH ASDIRECTED PRN Saline Lock Insert [OM.PC] Stat Oth 05/21/21 03:07 Ordered EKG 12 Lead [EK] Stat Ther 05/21/21 03:09 Ordered Medication Orders Sodium Chloride (Sodium Chloride 0.9% 10 Ml Syringe) 10 ml FLUSH ASDIRECTED PRN PRN Reason: Keep Vein Open Labs: Laboratory Tests 05/21/21 05/21/21 Range/Units 03:20 03:20 WBC 4.6 (4.5-11.0) K/uL RBC 4.46 (3.30-5.50) M/uL Hgb 13.2 (12.0-15.0) g/dL Hct 41.0 (36.0-48.0) % MCV 92 (80-98) fL MCH 30 (27-31) pg MCHC 32 (32-36) % Plt Count 235 (150-400) K/uL Neut % (Auto) 52.2 (36-66) % Lymph % (Auto) 28.4 (24-44) % [place] % (Auto) 15.1 H (2-6) % Eos % (Auto) 3.9 (2-4) % Baso % (Auto) 0.4 (0-1) % Sodium 143 (140-148) mmol/L Potassium 4.0 (3.6-5.2) mmol/L Chloride 108 (100-108) mmol/L Carbon Dioxide 26 (21-32) mmol/L Anion Gap 8.9 (5.0-14.0) mmol/L BUN 16 (7-18) mg/dL Creatinine 0.8 (0.6-1.0) mg/dL Est Cr Clr Drug Dosing TNP Estimated GFR (MDRD) > 60 (>60) Glucose 92 (74-106) mg/dL Calcium 8.5 (8.5-10.1) mg/dL Magnesium 1.9 (1.8-2.4) mg/dL Total Bilirubin 0.4 (0.2-1.0) mg/dL AST 19 (15-37) U/L ALT 16 (12-78) U/L Alkaline Phosphatase 77 (46-116) U/L Troponin I < 0.017 (0.000-0.056) ng/mL Total Protein 6.4 (6.4-8.2) g/dL Albumin 3.1 L (3.4-5.0) g/dL Globulin 3.3 (2.3-3.5) g/dL Albumin/Globulin Ratio 0.9 L (1.2-2.2) Amylase 28 (25-115) U/L Lipase 135 (73-393) U/L reviewed, no acute concerns/WNL; specifically trop is neg at <0.017 Laboratory Tests 05/21/21 03:20 Magnesium 1.9 Troponin I < 0.017 Amylase 28 Lipase 135 Meds: Medications Generic Name Dose Route Start Last Admin Trade Name Freq PRN Reason Stop Dose Admin Sodium Chloride 10 ml 05/21/21 03:07 Sodium Chloride 0.9% 10 Ml Syringe FLUSH ASDIRECTED PRN Keep Vein Open Discontinued Medications Generic Name Dose Route Start Last Admin Trade Name Freq PRN Reason Stop Dose Admin Ondansetron HCl 4 mg 05/21/21 03:11 05/21/21 03:20 Ondansetron 4 Mg Tab.Dis PO 05/21/21 03:12 4 mg ONETIME ONE Administration - Radiology Interpretation Free Text/Narrative:: 0330--chest film noted for cardiomegaly, no acute changes otherwise on preliminary reading; final radiology reading pending at this time Departure - Departure Time of Disposition: 03:56 Disposition: Home, Self-Care 01 Condition: Good Clinical Impression: Nausea Eustachian tube dysfunction Qualifiers: Laterality: bilateral Qualified Code(s): H69.83 - Other specified disorders of Eustachian tube, bilateral Headache Qualifiers: Headache type: unspecified Headache chronicity pattern: acute headache Instructions: General Headache Without Cause, [id number], Eustachian Tube Dysfunction, Nausea and Vomiting, Adult, [id number] Referrals: PCP,None [Primary Care Provider] - Forms: ED Department Discharge Additional Instructions: Ensure you are drinking plenty of fluids--water, juice, sports drinks of choice to stay hydrated; soup is another option if your appetite is decreased. You may use over the counter ibuprofen or acetaminophen per label for headache/discomfort/fever I have provided you some nausea medication for home use--dissolve it under your tongue as directed on label, you may drink small sips of water to rinse your mouth with water afterward if you find the taste unpleasant I have provided you with some Afrin nasal decongestant--you may use 2 sprays in each nostril twice a day as needed (max of 3-5 days in a row) should you have nasal congestion, ear fullness/pressure or pain If you have continued symptoms of concern then follow up with your PCM for further evaluation Sepsis Event Note (ED) - Focused Exam Vital Signs: Vital Signs Temp Pulse Resp BP Pulse Ox 05/21/21 03:24 97.7 F 71 16 147/71 H 98 05/21/21 03:21 97.7 F 71 16 147/71 H 98 - My Orders Last 24 Hours: My Active Orders 05/21/21 03:07 Sodium Chloride 0.9% [Saline Flush] 10 ml FLUSH ASDIRECTED PRN Saline Lock Insert [OM.PC] Stat 05/21/21 03:08 Cardiac Monitoring [RC] .As Directed Oxygen Therapy [RC] PRN Pulse Oximetry [RC] CONTINUOUS 05/21/21 03:09 Chest 1V Frontal [CR] Stat EKG 12 Lead [EK] Stat - Assessment/Plan Last 24 Hours: My Active Orders 05/21/21 03:07 Sodium Chloride 0.9% [Saline Flush] 10 ml FLUSH ASDIRECTED PRN Saline Lock Insert [OM.PC] Stat 05/21/21 03:08 Cardiac Monitoring [RC] .As Directed Oxygen Therapy [RC] PRN Pulse Oximetry [RC] CONTINUOUS 05/21/21 03:09 Chest 1V Frontal [CR] Stat EKG 12 Lead [EK] Stat
[2021-05-21] MEDS ORDERED: Oxymetazoline 0.05% Nasal Spray 30 ML Bottle NAS PRN (03:55)
[2021-05-21] MEDS ORDERED: Acetaminophen 325 MG Tab PO ONE (03:55)
[2021-05-21 04:15] VITALS: BP 135/58; PULSE 63
--- NOTE | 2021-05-21 08:54 | CR ---
CHEST: Portable 05/21/2021 at 3:45 AM CLINICAL HISTORY:Chest pain COMPARISON:2019 FINDINGS: Heart is borderline enlarged. Patient has a permanent cardiac pacer. Pulmonary vascularity is normal. No infiltrates are seen. There are no effusions. IMPRESSION: Mild cardiomegaly Permanent cardiac pacer/defibrillator No acute cardiopulmonary process
== END 2021-05-21 05:20 | disposition home or self-care (01) ==
LOC: JP.ED 02:59
DX: R51.9 Headache, unspecified (principal); H69.83 Other specified disorders of Eustachian tube, bilateral; R11.0 Nausea; I25.10 Atherosclerotic heart disease of native coronary artery without angina pectoris; E78.00 Pure hypercholesterolemia, unspecified; I10 Essential (primary) hypertension; I25.2 Old myocardial infarction; Z95.810 Presence of automatic (implantable) cardiac defibrillator; Z86.73 Personal history of transient ischemic attack (TIA), and cerebral infarction without residual deficits; Z88.1 Allergy status to other antibiotic agents; Z88.0 Allergy status to penicillin; Z91.048 Other nonmedicinal substance allergy status; Z88.2 Allergy status to sulfonamides; Z88.7 Allergy status to serum and vaccine; Z88.5 Allergy status to narcotic agent; Z88.8 Allergy status to other drugs, medicaments and biological substances; Z79.02 Long term (current) use of antithrombotics/antiplatelets; Z79.899 Other long term (current) drug therapy
CPT/HCPCS: 36415; 71045; 80053; 82150; 83690; 83735; 84484; 85025; 93005; 99284; A9270

== ENCOUNTER 2022-02-19 10:34 | Emergency (ER) | payer MEDICARE, BC ==
[2022-02-19 10:37] VITALS: BP 167/71; PULSE 66
[2022-02-19] MEDS ORDERED: Meclizine 25 MG Tab PO ONE (11:43)
== END 2022-02-19 12:17 | disposition home or self-care (01) ==
LOC: JP.ED 10:34
DX: R42 Dizziness and giddiness (principal); H69.83 Other specified disorders of Eustachian tube, bilateral; I10 Essential (primary) hypertension; I25.2 Old myocardial infarction; E66.9 Obesity, unspecified; Z68.28 Body mass index [BMI] 28.0-28.9, adult; Z88.8 Allergy status to other drugs, medicaments and biological substances; Z88.1 Allergy status to other antibiotic agents; Z88.5 Allergy status to narcotic agent; Z88.2 Allergy status to sulfonamides; Z88.7 Allergy status to serum and vaccine; Z88.0 Allergy status to penicillin; Z88.6 Allergy status to analgesic agent; Z79.899 Other long term (current) drug therapy; Z90.49 Acquired absence of other specified parts of digestive tract; Z90.710 Acquired absence of both cervix and uterus
CPT/HCPCS: 99283; A9270

== ENCOUNTER 2023-01-30 09:08 | Emergency (ER) | payer MEDICARE, BC ==
[2023-01-30 09:27] LABS: BASOPHILS PERCENT AUTO 0.3 % (0.1-1.3); EOSINOPHILS ABSOLUTE AUTO 0.09 K/uL (0.00-0.40); EOSINOPHILS PERCENT AUTO 1.5 % (0.0-5.4); HEMATOCRIT 41.6 % (34.3-46.0); HEMOGLOBIN 13.8 g/dL (11.2-15.5); IMMATURE GRAN ABSOLUTE AUTO 0.05 K/uL (0.00-0.23); IMMATURE GRAN PERCENT AUTO 0.8 % (0.0-0.7); LYMPHOCYTES ABSOLUTE AUTO 1.65 K/uL (0.8-3.3); LYMPHOCYTES PERCENT AUTO 27.8 % (11.4-47.7); MEAN CORPUSCULAR HEMOGLOBIN 29.9 pg (31.6-35.5); MEAN CORPUSCULAR HGB CONC 33.2 g/dL (31.6-35.5); MEAN CORPUSCULAR VOLUME 90.2 fL (81.4-99.0); MONOCYTES ABSOLUTE AUTO 0.72 K/uL (0.20-0.90); MONOCYTES PERCENT AUTO 12.1 % (3.3-12.6); NEUTROPHILS ABSOLUTE AUTO 3.41 K/uL (1.0-7.6); NEUTROPHILS PERCENT AUTO 57.5 % (40.0-78.1); PLATELET COUNT,PLT 257 K/uL (130-375); RED BLOOD CELL COUNT 4.61 M/uL (3.77-5.24); WHITE BLOOD CELL COUNT,WBC 5.9 K/uL (3.2-11.0)
[2023-01-30 09:28] LABS: BASOPHILS ABSOLUTE AUTO 0.02 K/uL (0.00-0.10)
[2023-01-30] MEDS: Sodium Chloride 0.9% 10 ML Syringe FLUSH PRN (09:40)
[2023-01-30 09:51] LABS: PROTHROMBIN TIME 9.8 sec (9.2-10.6); PTT,PARTIAL THROMBOPLSTIN TIME 21.6 sec (21.8-27.3)
[2023-01-30 09:54] LABS: ALANINE AMINOTRANSFERASE,ALT 17 U/L (12-78); ALBUMIN 3.3 g/dL (3.4-5.0); ALKALINE PHOSPHATASE 91 U/L (46-116); ANION GAP 8.5 mmol/L (5.0-14.0); ASPARTATE AMNIOTRANSFERASE,AST 22 U/L (15-37); BILIRUBIN TOTAL 0.4 mg/dL (0.2-1.0); BLOOD UREA NITROGEN,BUN 23 mg/dL (7-18); CALCIUM 8.7 mg/dL (8.5-10.1); CARBON DIOXIDE,CO2 26 mmol/L (21-32); CHLORIDE,CL 106 mmol/L (100-108); CREATININE 0.8 mg/dL (0.6-1.0); EST CRCL DRUG DOSING (CG) 37.71 mL/min; ESTIMATED GFR 70 mL/min (>60); GLUCOSE RANDOM 92 mg/dL (74-106); POTASSIUM,K 4.6 mmol/L (3.6-5.2); PRO B-TYPE NATRIUR PEPT,BNPPRO 1022 pg/mL (5-450); PROTEIN TOTAL,TP 6.6 g/dL (6.4-8.2); SODIUM,NA 140 mmol/L (140-148); TROPONIN I HIGH SENSITIVITY 9.6 pg/mL (<=60.3)
[2023-01-30 09:55] LABS: C-REACTIVE PROTEIN < 0.05 mg/dL (0.0-0.3)
[2023-01-30] MEDS: Iopamidol 755 Mg/ML 100 ML Bottle IV SCH (11:40)
[2023-01-30] MEDS: Sodium Chloride 0.9% 10 ML Syringe FLUSH ONE (11:40)
[2023-01-30] MEDS: Sodium Chloride 0.9% 75 ML IV SCH (11:40)
[2023-01-30] MEDS: Nitroglycerin 0.4 MG Tab.SL SL ONE (14:16)
[2023-01-30 16:48] VITALS: BP 115/63; PULSE 66
== END 2023-01-30 17:23 | disposition home or self-care (01) ==
LOC: JP.ED 09:08
DX: R07.9 Chest pain, unspecified (principal); I25.10 Atherosclerotic heart disease of native coronary artery without angina pectoris; E78.00 Pure hypercholesterolemia, unspecified; I10 Essential (primary) hypertension; I25.2 Old myocardial infarction; E66.9 Obesity, unspecified; Z68.28 Body mass index [BMI] 28.0-28.9, adult; Z95.5 Presence of coronary angioplasty implant and graft; Z87.891 Personal history of nicotine dependence; Z95.0 Presence of cardiac pacemaker; Z86.73 Personal history of transient ischemic attack (TIA), and cerebral infarction without residual deficits; Z79.02 Long term (current) use of antithrombotics/antiplatelets; Z79.899 Other long term (current) drug therapy; Z88.0 Allergy status to penicillin; Z88.1 Allergy status to other antibiotic agents; Z88.8 Allergy status to other drugs, medicaments and biological substances; Z88.5 Allergy status to narcotic agent; Z88.7 Allergy status to serum and vaccine
CPT/HCPCS: 36415; 71046; 71275; 80053; 82947; 83880; 84484; 85025; 85379; 85610; 85730; 86140; 93005; 99285; A9270; J3490; Q9967